=== PATIENT | male | born 1995 | race Caucasian/White ===

== ENCOUNTER 2017-01-01 17:10 | Emergency (ER) | payer OTHER ==
[~2017-01-01] VITALS: Ht 177.8 cm; Wt 98.0 kg
[~2017-01-01 17:10] MED LIST: HYDR-3533 PO; PROM25SU8 PO; ZOFR4TAB3 SL
[2017-01-01 17:12] VITALS: BP 165/93; PULSE 55; RESP 16; TEMP 98.1; O2SAT 99
[2017-01-01] MEDS ORDERED: SODIUM CHLOR 0.9% 1000 ML INJ 1,000 ML IV SCH (17:58)
--- NOTE | 2017-01-01 17:59 | PD ---
HPI . Abdominal pain Chief Complaint: Abdominal Pain Time Seen by Provider: 17:55 Travel History International Travel<30 days: No Contact w/Intl Traveler<30days: No Traveled to known affect area: No History of Present Illness HPI Patient presents with a 2 day history of upper abdominal pain associated with nausea, vomiting and diarrhea. Vomiting is worse than the diarrhea. He has had subjective fevers and chills. Patient reports a history of known gallbladder disease. PFSH Past Surgical History Tonsillectomy: Yes Social History Alcohol Use: No Tobacco Use: Yes (/2 ppd) Substance Use: Yes (marijuana 2 days ago) Allergies-Medications (Allergen,Severity, Reaction): Coded Allergies: Penicillin (Verified Allergy, Severe, 01/01/17) Sulfa (Verified Allergy, Unknown, 01/04/16) Aleve (Verified Adverse Reaction, Severe, Nausea/Vomiting, 01/04/16) Reported Meds & Prescriptions Reported Meds & Active Scripts Active Reported Zofran (Ondansetron HCl) 4 Mg Tab 4 Mg PO Q12HR PRN Review of Systems Except as stated in HPI: all other systems reviewed are Neg General / Constitutional: Positive: Fever, Chills Gastrointestinal: Positive: Nausea, Vomiting, Diarrhea, Abdominal Pain Genitourinary: No: Urgency, Frequency, Dysuria Physical Exam Narrative GENERAL: The patient looks pretty uncomfortable. He is holding an emesis bag with some emesis and it. SKIN: Warm and dry. HEAD: Atraumatic. Normocephalic. EYES: Pupils equal and round. ENT: No nasal bleeding or discharge. Mucous membranes pink and moist. NECK: Trachea midline. CARDIOVASCULAR: Regular rate and rhythm. RESPIRATORY: No accessory muscle use. GASTROINTESTINAL: Abdomen soft. Epigastric tenderness. No guarding or rebound. Nondistended. MUSCULOSKELETAL: No obvious deformities. No edema. NEUROLOGICAL: Awake and alert. No obvious cranial nerve deficits. Motor grossly within normal limits. Normal speech. PSYCHIATRIC: Appropriate mood and affect; insight and judgment normal. Data Data Last Documented VS Vital Signs Date Time Temp Pulse Resp B/P Pulse Ox O2 Delivery O2 Flow Rate FiO2 01/01/17 18:24 55 18 132/86 99 Nasal Cannula 2 01/01/17 17:12 98.1 Orders Complete Blood Count With Diff (01/01/17 17:58) Comprehensive Metabolic Panel (01/01/17 17:58) Lipase (3/4/17 17:58) Iv Access Insert/Monitor (01/01/17 17:58) Ecg Monitoring (01/01/17 17:58) Oximetry (01/01/17 17:58) Hydromorphone Pf Inj (Dilaudid Pf Inj) (01/01/17 18:00) Ondansetron Inj (Zofran Inj) (01/01/17 18:00) Pantoprazole Inj (Protonix Inj) (01/01/17 18:00) Sodium Chlor 0.9% 1000 Ml Inj (Ns 1000 M (01/01/17 17:58) Sodium Chloride 0.9% Flush (Ns Flush) (01/01/17 18:00) Sodium Chlor 0.9% 1000 Ml Inj (Ns 1000 M (01/01/17 19:15) Ketorolac Inj (Toradol Inj) (01/01/17 19:15) Morphine Inj (Morphine Inj) (01/01/17 20:00) Labs Laboratory Tests Test 01/01/17 18:15 White Blood Count 13.8 TH/MM3 Red Blood Count 5.83 MIL/MM3 Hemoglobin 16.8 GM/DL Hematocrit 49.3 % Mean Corpuscular Volume 84.7 FL Mean Corpuscular Hemoglobin 28.9 PG Mean Corpuscular Hemoglobin 34.1 % Concent Red Cell Distribution Width 13.3 % Platelet Count 244 TH/MM3 Mean Platelet Volume 9.2 FL Neutrophils (%) (Auto) 85.8 % Lymphocytes (%) (Auto) 11.5 % Monocytes (%) (Auto) 2.6 % Eosinophils (%) (Auto) 0.0 % Basophils (%) (Auto) 0.1 % Neutrophils # (Auto) 11.8 TH/MM3 Lymphocytes # (Auto) 1.6 TH/MM3 Monocytes # (Auto) 0.4 TH/MM3 Eosinophils # (Auto) 0.0 TH/MM3 Basophils # (Auto) 0.0 TH/MM3 CBC Comment DIFF FINAL Differential Comment Sodium Level 139 MEQ/L Potassium Level 4.1 MEQ/L Chloride Level 104 MEQ/L Carbon Dioxide Level 27.3 MEQ/L Anion Gap 8 MEQ/L Blood Urea Nitrogen 11 MG/DL Creatinine 1.23 MG/DL Estimat Glomerular Filtration 73 ML/MIN Rate Random Glucose 135 MG/DL Calcium Level 9.3 MG/DL Total Bilirubin 1.2 MG/DL Aspartate Amino Transf 19 U/L (AST/SGOT) Alanine Aminotransferase 41 U/L (ALT/SGPT) Alkaline Phosphatase 81 U/L Total Protein 8.7 GM/DL Albumin 4.7 GM/DL Lipase 143 U/L MDM Medical Decision Making Medical Screen Exam Complete: Yes Emergency Medical Condition: Yes Medical Record Reviewed: Yes (patient was seen in July 2016 with similar complaints. He had an ultrasound done that showed sludge in the gallbladder but no gallbladder wall thickening.) Differential Diagnosis Differential diagnosis of abdominal pain includes but is not limited to gastritis, pancreatitis, hepatitis, gastroenteritis, gallbladder disease, constipation, urinary retention, UTI, peptic ulcer disease, diverticulitis or appendicitis Narrative Course Patient presents with a 2 day history of upper abdominal pain associated with nausea, vomiting and diarrhea. He will be given IV fluids, IV pain medication and IV antiemetics. CBC & BMP Diagram 01/01/17 18:15 LFTs are basically normal. Lipase is 143. Patient is now resting comfortably. Diagnosis Primary Impression: Abdominal pain Qualified Code: R10.13 - Epigastric pain Additional Impression: Vomiting Qualified Code: R11.2 - Non-intractable vomiting with nausea, unspecified vomiting type Referrals: Cristofer Gloria MD Patient Instructions: Abdominal Pain (ED), Acute Nausea and Vomiting (DC), General Instructions Scripts Dicyclomine (Bentyl)20 Mg Tab20 Mg PO QID PRN (ABDOMINAL CRAMPING) #10 TAB Ref 0 Prov:Christin Herman MD 01/01/17 Promethazine (Phenergan)25 Mg Tab25 Mg PO Q6H PRN (Nausea/Vomiting) #10 TAB Ref 0 Prov:Christin Herman MD 01/01/17 Disposition: 01 DISCHARGE HOME Condition: Stable Christin Herman MD Jan 01, 2017 17:59
[2017-01-01] MEDS ORDERED: HYDROmorphone HCL PF 2 MG/ML VIAL IVS ONE (18:00)
[2017-01-01] MEDS ORDERED: SODIUM CHLORIDE 0.9% FLUSH 5 ML FLUSH IVF PRN (18:00)
[2017-01-01] MEDS ORDERED: PANTOPRAZOLE SODIUM 40 MG VIAL IVP ONE (18:00)
[2017-01-01] MEDS ORDERED: ONDANSETRON HCL 4 MG/2 ML VIAL IVP ONE (18:00)
[2017-01-01] MEDS ORDERED: ZOFR4TAB PO (18:05)
[2017-01-01 18:14] VITALS: O2SAT 97
[2017-01-01 18:24] VITALS: BP 132/86; PULSE 55; RESP 18; O2SAT 99
[2017-01-01 18:35] LABS: AUTOMATED NEUTROPHIL # 11.8 TH/MM3 (1.8-7.7); BASOPHIL % 0.1 % (0.0-2.0); HEMATOCRIT 49.3 % (39.0-51.0); HEMO FLAGS DIFF FINAL; LYMPH % 11.5 % (9.0-44.0); LYMPHOCYTE # 1.6 TH/MM3 (1.0-4.8); MEAN CELL VOLUME 84.7 FL (80.0-100.0); MEAN CORPUSCULAR HEMOGLOBIN 28.9 PG (27.0-34.0); MEAN CORPUSCULAR HGB CONC 34.1 % (32.0-36.0); MONO % 2.6 % (0.0-8.0); NEUT % 85.8 % (16.0-70.0); PLATELET COUNT 244 TH/MM3 (150-450); RED BLOOD COUNT 5.83 MIL/MM3 (4.50-5.90); RED CELL DISTRIBUTION WIDTH 13.3 % (11.6-17.2); WHITE BLOOD COUNT 13.8 TH/MM3 (4.0-11.0)
[2017-01-01 19:00] LABS: ANION GAP 8 MEQ/L (5-15); AST (GOT) 19 U/L (15-37); BICARBONATE 27.3 MEQ/L (21.0-32.0); BLOOD UREA NITROGEN 11 MG/DL (7-18); CHLORIDE 104 MEQ/L (98-107); GLOMERULAR FILTRATION RATE 73 ML/MIN (>89); POTASSIUM 4.1 MEQ/L (3.5-5.1); SODIUM (NA) 139 MEQ/L (136-145)
[2017-01-01 19:03] LABS: ALKALINE PHOSPHATASE 81 U/L (45-117); ALT (GPT) 41 U/L (12-78); TOTAL BILIRUBIN ADULT 1.2 MG/DL (0.2-1.0)
[2017-01-01] MEDS ORDERED: SODIUM CHLOR 0.9% 1000 ML INJ 1,000 ML IV ONE (19:15)
[2017-01-01] MEDS ORDERED: KETOROLAC TROMETHAMINE 30 MG/ML (IVP) VIAL IV PUSH ONE (19:15)
[2017-01-01] MEDS ORDERED: MORPHINE SULFATE 4 MG/ML INJ IV PUSH ONE (20:00)
[2017-01-01] MEDS ORDERED: PROM25TA5 PO (20:12)
[2017-01-01] MEDS ORDERED: BENT20TA PO (20:12)
== END 2017-01-01 20:41 | disposition home or self-care (01) ==
LOC: NEPA 17:10
DX: R10.10 Upper abdominal pain, unspecified (principal); R11.2 Nausea with vomiting, unspecified; R19.7 Diarrhea, unspecified; F17.210 Nicotine dependence, cigarettes, uncomplicated
CPT/HCPCS: 80053; 83690; 85025; 96361; 96374; 96375; 99284; C9113; J1170; J1885; J2270; J2405; J7030

== ENCOUNTER 2017-03-04 21:30 | Emergency (ER) | payer OTHER ==
[~2017-03-04] VITALS: Ht 175.3 cm; Wt 98.0 kg
[~2017-03-04 21:30] MED LIST changes: +BENT20TA PO; -HYDR-3533 PO; -PROM25SU8 PO; +PROM25TA5 PO; +ZOFR4TAB PO; -ZOFR4TAB3 SL
[2017-03-04 21:32] VITALS: BP 163/96; PULSE 55; RESP 16; TEMP 98.6; O2SAT 98
[2017-03-04 21:45] VITALS: BP 152/85; PULSE 48; RESP 18; TEMP 98.9; O2SAT 98
[2017-03-04] MEDS ORDERED: SODIUM CHLOR 0.9% 1000 ML INJ 1,000 ML IV SCH (21:55)
[2017-03-04] MEDS ORDERED: SODIUM CHLORIDE 0.9% FLUSH 10 ML FLUSH IV FLUSH PRN (22:00)
[2017-03-04] MEDS ORDERED: KETOROLAC TROMETHAMINE 30 MG/ML (IVP) VIAL IVP ONE (22:00)
[2017-03-04] MEDS ORDERED: diphenhydrAMINE HCL 50 MG/ML VIAL IV PUSH ONE (22:00)
[2017-03-04] MEDS ORDERED: PROCHLORPERAZINE INJ 10 MG/2 ML VIAL IV PUSH ONE (22:00)
--- NOTE | 2017-03-04 22:01 | PD ---
HPI Chief Complaint: GI Complaint Time Seen by Provider: 21:46 Travel History International Travel<30 days: No Contact w/Intl Traveler<30days: No Traveled to known affect area: No History of Present Illness HPI To 21-year-old male with episodic abdominal pain for the past year and a half or so. About a month and a half or so and his gallbladder taken out for "gallbladder sludge". He is not really had symptoms since then. Starting today he developed epigastric abdominal pain associated with nausea and vomiting. This similar to his previous episodes of his previous episodes were reportedly worse. He has had regular bowel movements. No fevers or chills. No other complaints. He smokes marijuana daily to every other day or so. No NSAID use. No history of gastritis or peptic ulcer disease. No other abdominal surgeries in the past. No other complaints. History Past Medical History Narrative Medical History of Recurrent abdominal pain Tetanus Vaccination: < 5 Years Social History Alcohol Use: No Tobacco Use: Yes (/ ppd) Allergies-Medications (Allergen,Severity, Reaction): Coded Allergies: Penicillin (Verified Allergy, Severe, 03/04/17) Sulfa (Verified Allergy, Unknown, 03/04/17) Aleve (Verified Adverse Reaction, Severe, Nausea/Vomiting, 03/04/17) Reported Meds & Prescriptions Reported Meds & Active Scripts Active Zofran Odt (Ondansetron Odt) 4 Mg Tab 4 Mg SL Q8HR PRN May substitute non-ODT form. Bentyl (Dicyclomine HCl) 20 Mg Tab 20 Mg PO QID PRN Review of Systems Except as stated in HPI: all other systems reviewed are Neg Physical Exam Narrative GENERAL: Well-appearing 20-year-old man, no acute distress. SKIN: Focused skin assessment warm/dry. NECK: Trachea midline. No JVD. CARDIOVASCULAR: Regular rate and rhythm. No murmur appreciated. RESPIRATORY: No accessory muscle use. Clear to auscultation. Breath sounds equal bilaterally. GASTROINTESTINAL: Abdomen is flat and soft. Well-healed laparoscopic cholecystectomy scars. No rebound or guarding. MUSCULOSKELETAL: No obvious deformities. No edema. NEUROLOGICAL: Awake and alert. No obvious cranial nerve deficits. Motor grossly within normal limits. Normal speech. PSYCHIATRIC: Appropriate mood and affect; insight and judgment normal. Data Data Last Documented VS Vital Signs Date Time Temp Pulse Resp B/P Pulse Ox O2 Delivery O2 Flow Rate FiO2 03/04/17 21:45 18 03/04/17 21:45 98.9 48 152/85 98 Room Air Orders Complete Blood Count With Diff (03/04/17 21:55) Comprehensive Metabolic Panel (03/04/17 21:55) Lipase (03/04/17 21:55) Iv Access Insert/Monitor (03/04/17 21:55) Sodium Chlor 0.9% 1000 Ml Inj (Ns 1000 M (03/04/17 21:55) Sodium Chloride 0.9% Flush (Ns Flush) (03/04/17 22:00) Ketorolac Inj (Toradol Inj) (03/04/17 22:00) Prochlorperazine Inj (Compazine Inj) (03/04/17 22:00) Diphenhydramine Inj (Benadryl Inj) (03/04/17 22:00) Labs Laboratory Tests Test 03/04/17 22:06 White Blood Count 13.0 TH/MM3 Red Blood Count 5.64 MIL/MM3 Hemoglobin 16.9 GM/DL Hematocrit 47.3 % Mean Corpuscular Volume 83.8 FL Mean Corpuscular Hemoglobin 30.0 PG Mean Corpuscular Hemoglobin 35.8 % Concent Red Cell Distribution Width 13.6 % Platelet Count 223 TH/MM3 Mean Platelet Volume 9.3 FL Neutrophils (%) (Auto) 87.1 % Lymphocytes (%) (Auto) 10.6 % Monocytes (%) (Auto) 2.1 % Eosinophils (%) (Auto) 0.0 % Basophils (%) (Auto) 0.2 % Neutrophils # (Auto) 11.3 TH/MM3 Lymphocytes # (Auto) 1.4 TH/MM3 Monocytes # (Auto) 0.3 TH/MM3 Eosinophils # (Auto) 0.0 TH/MM3 Basophils # (Auto) 0.0 TH/MM3 CBC Comment DIFF FINAL Differential Comment Sodium Level 140 MEQ/L Potassium Level 4.1 MEQ/L Chloride Level 103 MEQ/L Carbon Dioxide Level 28.7 MEQ/L Anion Gap 8 MEQ/L Blood Urea Nitrogen 11 MG/DL Creatinine 1.20 MG/DL Estimat Glomerular Filtration 75 ML/MIN Rate Random Glucose 140 MG/DL Calcium Level 9.5 MG/DL Total Bilirubin 1.1 MG/DL Aspartate Amino Transf 26 U/L (AST/SGOT) Alanine Aminotransferase 58 U/L (ALT/SGPT) Alkaline Phosphatase 82 U/L Total Protein 8.3 GM/DL Albumin 4.6 GM/DL Lipase 172 U/L [facility] Medical Decision Making Medical Screen Exam Complete: Yes Emergency Medical Condition: Yes Interpretation(s) LABS: CBC is unremarkable. CMP generally unremarkable. T bili is 1.1 Lipase unremarkable Differential Diagnosis Biliary colic, choledocholithiasis, gastritis, gastroparesis, marijuana hyperemesis syndrome, cyclic vomiting, abdominal migraine, porphyria, other Narrative Course Medical decision making INITIAL calls a 21-year-old male with history of intermittent abdominal pain, treated her gallbladder. Had gallbladder sludge. Status post cholecystectomy. Does not had an episode until now. This is about a month and a half ago. Looks overall well. Reviewed previous imaging included negative CT in December of last year. We'll recheck labs, supportive treatment, avoid opiates. Diagnosis Primary Impression: Abdominal pain Additional Impression: Vomiting Additional Instructions: Take Bentyl as needed for pain. Use Zofran as needed for nausea or vomiting. Drink plenty of fluids to stay well-hydrated. Follow-up with her primary doctor in the next 2-3 days for repeat evaluation. Med/Other Pt SpecificInfo: Prescription(s) given Scripts Ondansetron Odt (Zofran Odt)4 Mg Tab4 Mg SL Q8HR PRN (Nausea/Vomiting) #15 TAB May substitute non-ODT form. Prov:Charles Gibbs MD 03/04/17 Dicyclomine (Bentyl)20 Mg Tab20 Mg PO QID PRN (ABDOMINAL CRAMPING) #20 TAB Prov:Charles Gibbs MD 03/04/17 Disposition: 01 DISCHARGE HOME Condition: Stable Charles Gibbs MD March 04, 2017 22:01
[2017-03-04 22:29] LABS: AUTOMATED NEUTROPHIL # 11.3 TH/MM3 (1.8-7.7); BASOPHIL % 0.2 % (0.0-2.0); HEMATOCRIT 47.3 % (39.0-51.0); HEMO FLAGS DIFF FINAL; LYMPH % 10.6 % (9.0-44.0); LYMPHOCYTE # 1.4 TH/MM3 (1.0-4.8); MEAN CELL VOLUME 83.8 FL (80.0-100.0); MEAN CORPUSCULAR HGB CONC 35.8 % (32.0-36.0); MONO % 2.1 % (0.0-8.0); NEUT % 87.1 % (16.0-70.0); PLATELET COUNT 223 TH/MM3 (150-450); RED BLOOD COUNT 5.64 MIL/MM3 (4.50-5.90); RED CELL DISTRIBUTION WIDTH 13.6 % (11.6-17.2)
[2017-03-04 22:41] LABS: ANION GAP 8 MEQ/L (5-15); AST (GOT) 26 U/L (15-37); BICARBONATE 28.7 MEQ/L (21.0-32.0); BLOOD UREA NITROGEN 11 MG/DL (7-18); CHLORIDE 103 MEQ/L (98-107); GLOMERULAR FILTRATION RATE 75 ML/MIN (>89); POTASSIUM 4.1 MEQ/L (3.5-5.1); SODIUM (NA) 140 MEQ/L (136-145)
[2017-03-04 22:45] LABS: ALKALINE PHOSPHATASE 82 U/L (45-117); ALT (GPT) 58 U/L (12-78); TOTAL BILIRUBIN ADULT 1.1 MG/DL (0.2-1.0)
[2017-03-04] MEDS ORDERED: BENT20TA PO (22:50)
[2017-03-04] MEDS ORDERED: ZOFR4TAB3 SL (22:50)
[2017-03-04 23:22] VITALS: BP 152/67; PULSE 54; RESP 18; O2SAT 100
== END 2017-03-05 00:04 | disposition home or self-care (01) ==
LOC: NEPC 21:30
DX: R10.13 Epigastric pain (principal); R11.2 Nausea with vomiting, unspecified
CPT/HCPCS: 80053; 83690; 85025; 96361; 96374; 96375; 99284; J0780; J1200; J1885; J7030

== ENCOUNTER 2017-03-07 10:55 | Inpatient (IN) | payer OTHER ==
[~2017-03-07] VITALS: Ht 177.8 cm; Wt 102.5 kg
[2017-03-07] VITALS (8 sets, daily range): BP systolic 128–167; BP diastolic 59–96; PULSE 52–68; RESP 16–18; TEMP 98.1–98.8; O2SAT 96–98
[~2017-03-07 10:55] MED LIST changes: +ZOFR4TAB3 SL
--- NOTE | 2017-03-07 11:17 | PD ---
HPI Chief Complaint: GI Complaint Time Seen by Provider: 11:16 Travel History International Travel<30 days: No Contact w/Intl Traveler<30days: No Traveled to known affect area: No History of Present Illness HPI 21-year-old male came to the emergency room with history of epigastric pain and vomiting since yesterday. Patient says today he was at work when he vomited and there was some blood in it. He had his gallbladder taken out a week and a half ago by Dr. Mullins. However upon asking if he called the surgeon prior to coming in here he said no because there was no point since he would not be able to do anything in his office. He says he feels very dehydrated. Vital signs were however stable. [facility] Past Medical History Narrative Medical List of his past medical, surgical, social and family history was reviewed from the nursing note. Past Surgical History Cholecystectomy: Yes Tonsillectomy: Yes Social History Alcohol Use: No Tobacco Use: Yes (2 ppd) Substance Use: Yes (marijuana 2 days ago) Allergies-Medications (Allergen,Severity, Reaction): Coded Allergies: Penicillin (Verified Allergy, Severe, 03/07/17) Sulfa (Verified Allergy, Unknown, 03/07/17) Aleve (Verified Adverse Reaction, Severe, Nausea/Vomiting, 03/07/17) Comments List of his allergies reviewed from the nursing note. Reported Meds & Prescriptions Reported Meds & Active Scripts Active Zofran Odt (Ondansetron Odt) 4 Mg Tab 4 Mg SL Q8HR PRN May substitute non-ODT form. Bentyl (Dicyclomine HCl) 20 Mg Tab 20 Mg PO QID PRN Narrative Medication List of his home medications reviewed from the nursing note. Review of Systems Except as stated in HPI: all other systems reviewed are Neg Physical Exam Narrative GENERAL: Awake, alert, obese, moderate distress SKIN: Focused skin assessment warm/dry. HEAD: Atraumatic. Normocephalic. EYES: Pupils equal and round. No scleral icterus. No injection or drainage. ENT: No nasal bleeding or discharge. Dry mucous members NECK: Trachea midline. No JVD. CARDIOVASCULAR: Regular rate and rhythm. No murmur appreciated. RESPIRATORY: No accessory muscle use. Clear to auscultation. Breath sounds equal bilaterally. GASTROINTESTINAL: Abdomen soft, non-tender, nondistended. Hepatic and splenic margins not palpable. MUSCULOSKELETAL: No obvious deformities. No clubbing. No cyanosis. No edema. NEUROLOGICAL: Awake and alert. No obvious cranial nerve deficits. Motor grossly within normal limits. Normal speech. PSYCHIATRIC: Appropriate mood and affect; insight and judgment normal. Data Data Last Documented VS Vital Signs Date Time Temp Pulse Resp B/P Pulse Ox O2 Delivery O2 Flow Rate FiO2 03/07/17 16:20 98.3 60 16 155/91 98 Room Air Orders Complete Blood Count With Diff (03/07/17 11:23) Comprehensive Metabolic Panel (03/07/17 11:23) Urinalysis - C+S If Indicated (03/07/17 11:23) Ct Abd/Pel W/O Iv Contrast (03/07/17 11:23) Iv Access Insert/Monitor (03/07/17 11:23) Ecg Monitoring (03/07/17 11:23) Oximetry (03/07/17 11:23) Ondansetron Inj (Zofran Inj) (03/07/17 11:30) Pantoprazole Inj (Protonix Inj) (03/07/17 11:30) Sodium Chlor 0.9% 1000 Ml Inj (Ns 1000 M (03/07/17 11:23) Sodium Chloride 0.9% Flush (Ns Flush) (03/07/17 11:30) Ketorolac Inj (Toradol Inj) (03/07/17 11:30) Sodium Chlor 0.9% 1000 Ml Inj (Ns 1000 M (03/07/17 12:00) Morphine Inj (Morphine Inj) (03/07/17 12:45) Biliary Quant (W/O Cck) (03/07/17 ) Place In Observation (03/07/17 ) Code Status (03/07/17 16:16) Vital Signs (Adult) Q4H (03/07/17 16:16) Activity Oob With Assistance (03/07/17 16:16) Diet Npo (03/07/17 Dinner) Sodium Chloride 0.9% Flush (Ns Flush) (03/07/17 16:30) Sodium Chloride 0.9% Flush (Ns Flush) (03/07/17 21:00) Acetaminophen (Tylenol) (03/07/17 16:30) Ondansetron Inj (Zofran Inj) (03/07/17 16:30) Bisacodyl Supp (Dulcolax Supp) (03/07/17 16:30) Comprehensive Metabolic Panel (03/08/17 06:00) Complete Blood Count With Diff (03/08/17 06:00) Scd Bilateral/Knee High DAVID.BID (03/07/17 16:16) Naloxone Inj (Narcan Inj) (03/07/17 16:30) Ns + Kcl 20 Meq Inj (Ns + Kcl 20 Meq Inj (03/07/17 17:00) Hydromorphone Pf Inj (Dilaudid Pf Inj) (03/07/17 16:30) Consult General Surgery (03/07/17 ) Admit Order (Ed Use Only) (03/07/17 16:24) Labs Laboratory Tests Test 03/07/17 03/07/17 11:30 12:25 White Blood Count 14.9 TH/MM3 Red Blood Count 6.07 MIL/MM3 Hemoglobin 17.4 GM/DL Hematocrit 51.6 % Mean Corpuscular Volume 85.0 FL Mean Corpuscular Hemoglobin 28.6 PG Mean Corpuscular Hemoglobin 33.7 % Concent Red Cell Distribution Width 13.4 % Platelet Count 223 TH/MM3 Mean Platelet Volume 9.3 FL Neutrophils (%) (Auto) 63.5 % Lymphocytes (%) (Auto) 26.3 % Monocytes (%) (Auto) 9.8 % Eosinophils (%) (Auto) 0.2 % Basophils (%) (Auto) 0.2 % Neutrophils # (Auto) 9.5 TH/MM3 Lymphocytes # (Auto) 3.9 TH/MM3 Monocytes # (Auto) 1.5 TH/MM3 Eosinophils # (Auto) 0.0 TH/MM3 Basophils # (Auto) 0.0 TH/MM3 CBC Comment DIFF FINAL Differential Comment Sodium Level 137 MEQ/L Potassium Level 3.4 MEQ/L Chloride Level 99 MEQ/L Carbon Dioxide Level 29.8 MEQ/L Anion Gap 8 MEQ/L Blood Urea Nitrogen 12 MG/DL Creatinine 1.12 MG/DL Estimat Glomerular Filtration 81 ML/MIN Rate Random Glucose 115 MG/DL Calcium Level 9.6 MG/DL Total Bilirubin 2.6 MG/DL Aspartate Amino Transf 214 U/L (AST/SGOT) Alanine Aminotransferase 266 U/L (ALT/SGPT) Alkaline Phosphatase 89 U/L Total Protein 8.1 GM/DL Albumin 4.5 GM/DL Urine Color YELLOW Urine Turbidity HAZY Urine pH 6.5 Urine Specific [place] 1.028 Urine Protein 30 mg/dL Urine Glucose (UA) NEG mg/dL Urine Ketones 10 mg/dL Urine Occult Blood NEG Urine Nitrite NEG Urine Bilirubin NEG Urine Urobilinogen 8.0 MG/DL Urine Leukocyte Esterase NEG Urine RBC 1 /hpf Urine WBC 1 /hpf Urine Mucus FEW /lpf Microscopic Urinalysis Comment CULT NOT INDICATED MDM Medical Decision Making Medical Screen Exam Complete: Yes Emergency Medical Condition: Yes Medical Record Reviewed: Yes Differential Diagnosis Postop pain, gastritis, abdominal pain NOS, small bowel obstruction Narrative Course 11:56 AM awaiting for the blood test results and CAT scan to be done and resulted. CBC is back and shows some leukocytosis. He's been medicated for pain and nausea. Have also given him IV Protonix. Patient was also given 1 L of IV fluid bolus. 1:05 PM blood test results came back and his LFTs are significantly elevated. I discussed the case with Dr. Zapata who was covering for Dr. Mullins since he' s out of town. He wants a HIDA scan done before he decides what further needs to be done. The skin has been ordered. Awaiting for her to be done and resulted. Patient was still complaining of pain and he was medicated with morphine. 4:06 PM nuclear medicine just called to say that the test will need to be repeated at 6:30. At this point I will go ahead and admit this patient at least for observation. Awaiting for the residents to call back. Dr. Zapata has not come to see the patient yet. I've explained this to the patient and the reason for admission. 4:[address] [facility]ren[facility] who [facility] accepted the patient. Procedures EKG Prior to Arrival: No Physician Communication Physician Communication Dr. Ev Webber Diagnosis Primary Impression: Abdominal pain Qualified Code: R10.13 - Epigastric pain Additional Impressions: Vomiting Qualified Code: R11.2 - Intractable vomiting with nausea, unspecified vomiting type Elevated LFTs Status post cholecystectomy Admitting Information Admitting Physician Requests: Admit Esme Ruiz MD March 07, 2017 11:17
[2017-03-07] MEDS ORDERED: SODIUM CHLOR 0.9% 1000 ML INJ 1,000 ML IV SCH (11:23)
[2017-03-07] MEDS ORDERED: PANTOPRAZOLE SODIUM 40 MG VIAL IVP ONE (11:30)
[2017-03-07] MEDS ORDERED: SODIUM CHLORIDE 0.9% FLUSH 10 ML FLUSH IV FLUSH PRN (11:30)
[2017-03-07] MEDS ORDERED: ONDANSETRON HCL 4 MG/2 ML VIAL IVP ONE (11:30)
[2017-03-07] MEDS ORDERED: KETOROLAC TROMETHAMINE 30 MG/ML (IVP) VIAL IV PUSH ONE (11:30)
[2017-03-07 11:48] LABS: AUTOMATED NEUTROPHIL # 9.5 TH/MM3 (1.8-7.7); BASOPHIL % 0.2 % (0.0-2.0); EOSINOPHIL % 0.2 % (0.0-4.0); HEMATOCRIT 51.6 % (39.0-51.0); HEMO FLAGS DIFF FINAL; LYMPH % 26.3 % (9.0-44.0); LYMPHOCYTE # 3.9 TH/MM3 (1.0-4.8); MEAN CORPUSCULAR HEMOGLOBIN 28.6 PG (27.0-34.0); MEAN CORPUSCULAR HGB CONC 33.7 % (32.0-36.0); MONO % 9.8 % (0.0-8.0); NEUT % 63.5 % (16.0-70.0); PLATELET COUNT 223 TH/MM3 (150-450); RED BLOOD COUNT 6.07 MIL/MM3 (4.50-5.90); RED CELL DISTRIBUTION WIDTH 13.4 % (11.6-17.2); WHITE BLOOD COUNT 14.9 TH/MM3 (4.0-11.0)
[2017-03-07] MEDS ORDERED: SODIUM CHLOR 0.9% 1000 ML INJ 1,000 ML IV ONE (12:00)
--- NOTE | 2017-03-07 12:15 | RADRPT ---
EXAM DATE/TIME: 03/07/2017 11:54 [facility] COMPARISON: No previous studies available for comparison. INDICATIONS : Mid upper quadrant pain starting after gallbladder,vomiting blood. ORAL CONTRAST: No oral contrast ingested. RADIATION DOSE: 9.96 CTDIvol (mGy) MEDICAL HISTORY : None SURGICAL HISTORY : Cholecystectomy. ENCOUNTER: Initial ACUITY: 1 month PAIN SCALE: 7/10 LOCATION: abdomen TECHNIQUE: Volumetric scanning of the abdomen and pelvis was performed. Using automated exposure control and ad justment of the mA and/or kV according to patient size, radiation dose was kept as low as reasonably achievable to obtain optimal diagnostic quality images. FINDINGS: The lung base is are clear. There is no pericardial effusion. The gallbladder is surgically absent. The liver is free of focal defects. The spleen, pancreas, and adrenal glands are unremarkable The right and left kidneys appear normal There is no free fluid or free air The pelvic contents are unremarkable. Review of bone windows reveals only mild degenerative changes in the lower lumbar spine. CONCLUSION: 1. Negative for an acute process. I do not see etiology for patient's abdominal pain. Duy Harman MD FACR on March 07, 2017 at 12:11 Board Certified Radiologist. This report was verified electronically.
[2017-03-07 12:23] LABS: ALKALINE PHOSPHATASE 89 U/L (45-117); ALT (GPT) 266 U/L (12-78); ANION GAP 8 MEQ/L (5-15); AST (GOT) 214 U/L (15-37); BICARBONATE 29.8 MEQ/L (21.0-32.0); BLOOD UREA NITROGEN 12 MG/DL (7-18); CHLORIDE 99 MEQ/L (98-107); GLOMERULAR FILTRATION RATE 81 ML/MIN (>89); POTASSIUM 3.4 MEQ/L (3.5-5.1); SODIUM (NA) 137 MEQ/L (136-145); TOTAL BILIRUBIN ADULT 2.6 MG/DL (0.2-1.0)
[2017-03-07] MEDS ORDERED: MORPHINE SULFATE 8 MG/ML INJ IV PUSH ONE (12:45)
[2017-03-07 12:50] LABS: BLOOD, URINE NEG (NEG); COMMENT (UR) CULT NOT INDICATED; CULTURE IF INDICATED CULT NOT INDICATED; GLUCOSE,URINE NEG (NEG); KETONE, URINE 10 mg/dL (NEG); MUCUS URINE FEW /lpf (OCC); NITRITE,URINE NEG (NEG); PH, URINE 6.5 (5.0-8.5); URINE COLOR YELLOW (YELLW/STRAW)
[2017-03-07] MEDS ORDERED: ONDANSETRON HCL 4 MG/2 ML VIAL IVP PRN (16:30)
[2017-03-07] MEDS ORDERED: BISACODYL 10 MG SUPP RECTAL PRN (16:30)
[2017-03-07] MEDS ORDERED: NALOXONE HCL 0.4 MG/ML AMP IV PRN (16:30)
[2017-03-07] MEDS ORDERED: ACETAMINOPHEN 325 MG TAB PO PRN (16:30)
--- NOTE | 2017-03-07 16:36 | RADRPT ---
EXAM DATE/TIME: 03/07/2017 13:55 This report includes an Addendum and supersedes previous reports for this exam. [facility] COMPARISON: No previous studies available for comparison. INDICATIONS : Epigastric pain with vomiting. Cholecystectomy 1 month ago. DOSE: 4.4 mCi Tc99m Mebrofenin IV MEDICAL HISTORY : None SURGICAL HISTORY : Cholecystectomy. Tonsillectomy. ENCOUNTER: Initial ACUITY: 2 days PAIN SCALE: 3/10 LOCATION: Bilateral upper quadrant TECHNIQUE: Following the intravenous administration of radiotracer, dynamic sequential images were performed wit h continuous acquisition. FINDINGS: There is non-visualization of the biliary system at 2 hours. Considerations would include high-grade obstruction and acute hepatitis. Delayed images are pending. CONCLUSION: No biliary activity at 2 hours, delayed images are pending. Duy Harman MD FACR on March 07, 2017 at 16:32 Board Certified Radiologist. This report was verified electronically. ADDENDUM: There is no biliary duct or intestinal activity at 4 hours characteristic of high grade common bile d uct obstruction. Luis Enrique Zheng MD on March 07, 2017 at 17:59 Board Certified Radiologist. This report was verified electronically.
[2017-03-07] MEDS: HYDROmorphone HCL PF 1 MG/ML VIAL IV PUSH PRN ×2 (16:52→23:08)
--- NOTE | 2017-03-07 17:34 | HHI.HP ---
HPI Service [facility] Hospitalists Primary Care Physician Alexandru Soto M.D. Admission Diagnosis abdominal pain, elevated LFTs, intractable vomiting Chief Complaint: abd pain n/v Travel History International Travel<30 Days: No Contact w/Intl Traveler <30 Da: No Traveled to Known Affected Are: No History of Present Illness Patient is a pleasant 21-year-old male who underwent laparoscopic cholecystectomy on 01/13/[address] Cooper Mullins. Patient presented to the ER with complaint of recurrent abdominal pain associated with nausea or vomiting for 3-4 days prior to this admission. Patient reports that on 03/06/17, day prior to admission, he had some hematemesis. Patient also c/o dizziness for the last 2-3 days prior to admission. Workup in the ER was suggestive of mild dehydration. Patient started on intravenous fluids. Patient had CT of abdomen and pelvis (03/07/17) which showed no acute findings. Patient underwent hiatus scan which showed no biliary duct or intestinal activity at 4 hours. Patient admitted to [facility] for further evaluation and treatment Review of Systems Constitutional: DENIES: Diaphoretic episodes, Fatigue, Fever, Weight gain, Weight loss, Chills, Dizziness, Change in appetite, Night Sweats Endocrine: DENIES: Heat/cold intolerance, Polydipsia, Polyuria, Polyphagia Eyes: DENIES: Blurred vision, Diplopia, Eye inflammation, Eye pain, Vision loss , Photosensitivity, Double Vision Ears, nose, mouth, throat: DENIES: Tinnitus, Hearing loss, Vertigo, Nasal discharge, Oral lesions, Throat pain, Hoarseness, Ear Pain, Running Nose, Epistaxis, Sinus Pain, Toothache, Odynophagia Respiratory: DENIES: Apneas, Cough, Snoring, Wheezing, Hemoptysis, Sputum production, Shortness of breath Cardiovascular: DENIES: Chest pain, Palpitations, Syncope, Dyspnea on Exertion , PND, Lower Extremity Edema, Orthopnea, Claudication Gastrointestinal: COMPLAINS OF: Abdominal pain, Nausea, Vomiting, See HPI, DENIES: Black stools, Bloody stools, BRB per rectum, Constipation, Diarrhea, GERD, Reflux, Difficulty Swallowing, Anorexia Genitourinary: DENIES: Urinary frequency, Urinary incontinence, Urgency, Hematuria, Dysuria, Nocturia Musculoskeletal: DENIES: Joint pain, Muscle aches, Stiffness, Joint Swelling, Back pain, Neck pain Integumentary: DENIES: Abnormal pigmentation, Nail changes, Pruritus, Rash Hematologic/lymphatic: DENIES: Bruising, Lymphadenopathy Immunologic/allergic: DENIES: Eczema, Urticaria Neurologic: DENIES: Abnormal gait, Headache, Localized weakness, Paresthesias, Seizures, Speech Problems, Tremor, Poor Balance Psychiatric: DENIES: Anxiety, Confusion, Mood changes, Depression, Hallucinations, Agitation, Suicidal Ideation, Homicidal Ideation, Delusions, History of Bipolar, History of Schizophrenia Past Family Social History Past Medical History - see above Past Surgical History 1) tonsillectomy and adenoidectomy in childhood 2) laparoscopic cholecystectomy 01/13/17 Reported Medications Reported Meds & Active Scripts Active Zofran Odt (Ondansetron Odt) 4 Mg Tab 4 Mg SL Q8HR PRN May substitute non-ODT form. Bentyl (Dicyclomine HCl) 20 Mg Tab 20 Mg PO QID PRN Allergies: Coded Allergies: Penicillin (Verified Allergy, Severe, 03/07/17) Sulfa (Verified Allergy, Unknown, 03/07/17) Aleve (Verified Adverse Reaction, Severe, Nausea/Vomiting, 03/07/17) Family History - mother living, age 54 y/o, HTN, hyperlipidemia, DM - father living, age 61 y/o Social History - Current smoker, 1/2 ppd x 5 years - Denies alcohol use - Uses marijuana daily Physical Exam Vital Signs Vital Signs Date Time Temp Pulse Resp B/P Pulse Ox O2 Delivery O2 Flow Rate FiO2 03/07/17 17:27 98.3 56 16 159/74 99 03/07/17 16:52 56 16 159/79 98 Room Air 03/07/17 16:20 98.3 60 16 155/91 98 Room Air 03/07/17 13:00 54 18 167/78 98 Room Air 03/07/17 13:00 16 03/07/17 13:00 16 03/07/17 10:57 98.3 61 17 151/96 96 Physical Exam GENERAL: This is a well-nourished, well-developed patient, in no apparent distress. SKIN: No rashes, ecchymoses or lesions. Cool and dry. HEAD: Atraumatic. Normocephalic. No temporal or scalp tenderness. EYES: Pupils equal round and reactive. Extraocular motions intact. No scleral icterus. No injection or drainage. ENT: Nose without bleeding, purulent drainage or septal hematoma. Throat without erythema, tonsillar hypertrophy or exudate. Uvula midline. Airway patent. NECK: Trachea midline. No JVD or lymphadenopathy. Supple, nontender, no meningeal signs. CARDIOVASCULAR: Regular rate and rhythm without murmurs, gallops, or rubs. RESPIRATORY: Clear to auscultation. Breath sounds equal bilaterally. No wheezes , rales, or rhonchi. GASTROINTESTINAL: Abdomen soft, non-tender, nondistended. No hepato-splenomegaly , or palpable masses. No guarding. MUSCULOSKELETAL: Extremities without clubbing, cyanosis, or edema. No joint tenderness, effusion, or edema noted. No calf tenderness. Negative Homans sign bilaterally. NEUROLOGICAL: Awake and alert. Cranial nerves II through XII intact. Motor and sensory grossly within normal limits. Five out of 5 muscle strength in all muscle groups. Normal speech. Laboratory Laboratory Tests Test 03/07/17 03/07/17 11:30 12:25 White Blood Count 14.9 Red Blood Count 6.07 Hemoglobin 17.4 Hematocrit 51.6 Mean Corpuscular Volume 85.0 Mean Corpuscular Hemoglobin 28.6 Mean Corpuscular Hemoglobin 33.7 Concent Red Cell Distribution Width 13.4 Platelet Count 223 Mean Platelet Volume 9.3 Neutrophils (%) (Auto) 63.5 Lymphocytes (%) (Auto) 26.3 Monocytes (%) (Auto) 9.8 Eosinophils (%) (Auto) 0.2 Basophils (%) (Auto) 0.2 Neutrophils # (Auto) 9.5 Lymphocytes # (Auto) 3.9 Monocytes # (Auto) 1.5 Eosinophils # (Auto) 0.0 Basophils # (Auto) 0.0 CBC Comment DIFF FINAL Differential Comment Sodium Level 137 Potassium Level 3.4 Chloride Level 99 Carbon Dioxide Level 29.8 Anion Gap 8 Blood Urea Nitrogen 12 Creatinine 1.12 Estimat Glomerular Filtration 81 Rate Random Glucose 115 Calcium Level 9.6 Total Bilirubin 2.6 Aspartate Amino Transf 214 (AST/SGOT) Alanine Aminotransferase 266 (ALT/SGPT) Alkaline Phosphatase 89 Total Protein 8.1 Albumin 4.5 Urine Color YELLOW Urine Turbidity HAZY Urine pH 6.5 Urine Specific [place] 1.028 Urine Protein 30 Urine Glucose (UA) NEG Urine Ketones 10 Urine Occult Blood NEG Urine Nitrite NEG Urine Bilirubin NEG Urine Urobilinogen 8.0 Urine Leukocyte Esterase NEG Urine RBC 1 Urine WBC 1 Urine Mucus FEW Microscopic Urinalysis Comment CULT NOT INDICATED Result Diagram: 03/07/17 1130 03/07/17 1130 Imaging Last Impressions Abdomen/Pelvis CT 03/07/17 1123 Signed Impressions: Service Date/Time: Tuesday, March 07, 2017 11:54 - CONCLUSION: 1. Negative for an acute process. I do not see etiology for patient's abdominal pain. Duy Harman MD FACR Hepatobiliary Scan Nuclear Medicine 03/07/17 0000 Signed Impressions: Service Date/Time: Tuesday, March 07, 2017 13:55 - CONCLUSION: No biliary activity at 2 hours, delayed images are pending. Duy Harman MD FACRADDENDUM : There is no biliary duct or intestinal activity at 4 hours characteristic of high grade common bile duct obstruction. Luis Enrique Zheng MD Septic Shock Reassessment Heart: Regular rate and rhythm Lungs: Clear Skin: Warm Peripheral Pulses: Bounding Right Radial Bounding Left Radial Bounding Right Popliteal Bounding Left Popliteal Bounding Right Dorsalis Pedis Bounding Left Dorsalis Pedis Bounding Right Posterior Tibial Bounding Left Posterior Tibial Capillary Refill: Brisk Assessment and Plan Problem List: (1) Abdominal pain Status: Acute Plan: - s/p cholecystectomy 01/13/[address] Cooper Mullins - returns with recurrent abd pain, n/v, and reported episode of hematemesis - CT abd/pelvis (03/07/17) --> NO acute findings - HIDA (03/07/17) --> no biliary duct or intestinal activity at 4 hours - IVFs - NPO - dilaudid prn pain - await surgical consult - Case d/w Dr. Ge (03/07/17) (2) Elevated LFTs Status: Acute Plan: - see above Problem Qualifiers (1) Abdominal pain: Qualified Code: R10.13 - Epigastric pain Keanu Carreno DO March 07, 2017 17:34
[2017-03-07] MEDS: NS + KCL 20 MEQ INJ 1,000 ML IV SCH (18:05)
[2017-03-07] MEDS: SODIUM CHLORIDE 0.9% FLUSH 10 ML FLUSH IV FLUSH SCH (20:37)
[2017-03-07] MEDS: SODIUM CHLORIDE 0.9% FLUSH 10 ML FLUSH IV FLUSH PRN (23:07)
[2017-03-08] MEDS: NS + KCL 20 MEQ INJ 1,000 ML IV SCH ×4 (02:03→23:07)
[2017-03-08 04:17] VITALS: BP 120/70; PULSE 60; RESP 18; TEMP 98.7; O2SAT 98
[2017-03-08 05:17] LABS: AUTOMATED NEUTROPHIL # 6.5 TH/MM3 (1.8-7.7); BASOPHIL % 0.4 % (0.0-2.0); EOSINOPHIL # 0.1 TH/MM3 (0-0.4); EOSINOPHIL % 0.8 % (0.0-4.0); HEMATOCRIT 45.8 % (39.0-51.0); HEMO FLAGS DIFF FINAL; LYMPH % 30.7 % (9.0-44.0); LYMPHOCYTE # 3.4 TH/MM3 (1.0-4.8); MEAN CELL VOLUME 85.5 FL (80.0-100.0); MEAN CORPUSCULAR HEMOGLOBIN 28.6 PG (27.0-34.0); MEAN CORPUSCULAR HGB CONC 33.5 % (32.0-36.0); MONO % 10.1 % (0.0-8.0); PLATELET COUNT 178 TH/MM3 (150-450); RED BLOOD COUNT 5.35 MIL/MM3 (4.50-5.90); RED CELL DISTRIBUTION WIDTH 13.4 % (11.6-17.2); WHITE BLOOD COUNT 11.2 TH/MM3 (4.0-11.0)
[2017-03-08 05:38] LABS: ALKALINE PHOSPHATASE 93 U/L (45-117); ALT (GPT) 482 U/L (12-78); ANION GAP 8 MEQ/L (5-15); AST (GOT) 249 U/L (15-37); BICARBONATE 27.2 MEQ/L (21.0-32.0); BLOOD UREA NITROGEN 10 MG/DL (7-18); CHLORIDE 105 MEQ/L (98-107); GLOMERULAR FILTRATION RATE 99 ML/MIN (>89); POTASSIUM 3.5 MEQ/L (3.5-5.1); SODIUM (NA) 140 MEQ/L (136-145); TOTAL BILIRUBIN ADULT 4.7 MG/DL (0.2-1.0)
[2017-03-08] MEDS: SODIUM CHLORIDE 0.9% FLUSH 10 ML FLUSH IV FLUSH PRN ×3 (05:47→23:07)
[2017-03-08] MEDS: HYDROmorphone HCL PF 1 MG/ML VIAL IV PUSH PRN ×3 (05:48→19:36)
[2017-03-08 07:56] VITALS: BP 124/62; PULSE 55; RESP 18; TEMP 98.1; O2SAT 98
[2017-03-08] MEDS: SODIUM CHLORIDE 0.9% FLUSH 10 ML FLUSH IV FLUSH SCH ×2 (09:00→21:00)
--- NOTE | 2017-03-08 10:04 | HHI.PR ---
Subjective Remarks Pt c/o RUQ overnight which resolved with Dilaudid. Objective Vitals Vital Signs Date Time Temp Pulse Resp B/P Pulse Ox O2 Delivery O2 Flow Rate FiO2 03/08/17 07:56 98.1 55 18 124/62 98 03/08/17 04:17 98.7 60 18 120/70 98 03/07/17 23:18 98.1 64 18 128/59 97 03/07/17 19:35 98.8 68 18 132/72 97 03/07/17 18:13 98.4 52 18 130/73 96 03/07/17 17:27 98.3 56 16 159/74 99 03/07/17 16:52 56 16 159/79 98 Room Air 03/07/17 16:20 98.3 60 16 155/91 98 Room Air 03/07/17 13:00 54 18 167/78 98 Room Air 03/07/17 13:00 16 03/07/17 13:00 16 03/07/17 10:57 98.3 61 17 151/96 96 Result Diagram: 03/08/17 0435 03/08/17 0435 Imaging Last Impressions Abdomen/Pelvis CT 03/07/17 1123 Signed Impressions: Service Date/Time: Tuesday, March 07, 2017 11:54 - CONCLUSION: 1. Negative for an acute process. I do not see etiology for patient's abdominal pain. Duy Harman MD FACR Hepatobiliary Scan Nuclear Medicine 03/07/17 0000 Signed Impressions: Service Date/Time: Tuesday, March 07, 2017 13:55 - CONCLUSION: No biliary activity at 2 hours, delayed images are pending. Duy Harman MD FACRADDENDUM : There is no biliary duct or intestinal activity at 4 hours characteristic of high grade common bile duct obstruction. Luis Enrique Zheng MD Objective Remarks GENERAL: This is a well-nourished, well-developed patient, in no apparent distress. CARDIOVASCULAR: Regular rate and rhythm without murmurs, gallops, or rubs. RESPIRATORY: Clear to auscultation. Breath sounds equal bilaterally. No wheezes , rales, or rhonchi. GASTROINTESTINAL: Abdomen soft, non-tender, nondistended. Normal active bowel sounds MUSCULOSKELETAL: Extremities without clubbing, cyanosis, or edema. NEURO: Alert & Oriented x4 to person, place, time, situation. Moves all ext x4 A/P Problem List: (1) Abdominal pain Status: Acute Plan: - s/p cholecystectomy 01/13/[address] Cooper Mullins - returns with recurrent abd pain, n/v, and reported episode of hematemesis - CT abd/pelvis (03/07/17) --> NO acute findings - HIDA (03/07/17) --> no biliary duct or intestinal activity at 4 hours - IVFs - NPO - dilaudid prn pain - await surgical consult - Case d/w Dr. Ge (03/08/17) - LFT (03/08/17) --> increasing - obtain MRCP, r/o choledocholithiasis - request GI consult (2) Elevated LFTs Status: Acute Plan: - obtain hepatitis panel - repeat LFTs in AM - see above Problem Qualifiers (1) Abdominal pain: Qualified Code: R10.13 - Epigastric pain Keanu Carreno DO March 08, 2017 10:03
[2017-03-08 11:21] VITALS: BP 122/64; PULSE 51; RESP 22; TEMP 98; O2SAT 99
--- NOTE | 2017-03-08 11:58 | PD.CONS ---
HPI History of Present Illness This is a 21 year old male who had a laparoscopic cholecystectomy with Dr. Mullins on January [address] [facility] (he reports that he had cholecystitis with sludge in his gallbladder, but no stones). He reports that afterwards, he was feeling great and did not having any issues. Tuesday, he had a blackened a Red fish sandwich with chips and queso from [employer]. Soon after finishing his meal, he vomited this back up and continued to have nausea and vomiting throughout the day with more bilious material. He also had associated abdominal pain described as a pressure in his epigastric area that radiates to his back at times. This has pretty much been constant, although with the pain medicine, it is more intermittent. He believes he has had some fever and chills since his symptoms started. He has not had a bowel movement since . He did try ranitidine, TUMS, hydrocodone and dicyclimine that he had left over from his surgery, but none of these seemed to help. His significant other ate the same food and did not have any symptoms. He reports that his symptoms have progressively been getting worse and therefore he came to the ER for further evaluation. He was noted to have elevated LFTs. He denies any history of liver problems. He does not drink ETOH regularly- last had one beer a few weeks ago. No herbal supplements. No liver disease in the family. ( Erma Swanson) PFSH Past Medical History Hx cholecystitis/sludge Past Surgical History Laparoscopic cholecystectomy Tonsillectomy Tubes in ears (Erma Swanson) Coded Allergies: Penicillin (Verified Allergy, Severe, 03/07/17) Sulfa (Verified Allergy, Unknown, 03/07/17) Aleve (Verified Adverse Reaction, Severe, Nausea/Vomiting, 03/07/17) Medications Allergies Coded Allergies Type Severity Reaction Last Updated Verified Penicillin Allergy Severe 03/07/17 Yes Sulfa Allergy Unknown 03/07/17 Yes Aleve Adverse Reaction Severe Nausea/Vomiting 03/07/17 Yes Active Scripts Medications Dose Route/Sig Days Date Category Dose Instructions Zofran Odt (Ondansetron Odt) 4 Mg Tab 4 Mg SL Q8HR PRN 03/04/17 Rx May substitute non-ODT form. Bentyl (Dicyclomine HCl) 20 Mg Tab 20 Mg PO QID PRN 03/04/17 Rx Tums, hydrocodone, ranitidine recently for pain Family History Mother, maternal grandfather with htn, high cholesterol, dm Father no known medical problems. Social History 1/2 PPD ~4-5 years Occasional ETOH Occasional MJ (Erma Swanson Aleisha OROPEZA) Review of Systems Constitutional: COMPLAINS OF: Fever, Weight loss, Chills Respiratory: DENIES: Cough, Shortness of breath Cardiovascular: DENIES: Chest pain Gastrointestinal: COMPLAINS OF: Abdominal pain, Nausea, Vomiting, Swelling of Abdomen, DENIES: Black stools, Bloody stools, Constipation, Diarrhea, Heartburn Musculoskeletal: COMPLAINS OF: Back pain, DENIES: Muscle aches Integumentary: DENIES: Rash Neurologic: DENIES: Headache Psychiatric: DENIES: Confusion (SwansonErma) GI Exam Vitals I&O Vital Signs Date Time Temp Pulse Resp B/P Pulse Ox O2 Delivery O2 Flow Rate FiO2 03/08/17 11:21 98.0 51 22 122/64 99 03/08/17 07:56 98.1 55 18 124/62 98 03/08/17 04:17 98.7 60 18 120/70 98 03/07/17 23:18 98.1 64 18 128/59 97 03/07/17 19:35 98.8 68 18 132/72 97 03/07/17 18:13 98.4 52 18 130/73 96 03/07/17 17:27 98.3 56 16 159/74 99 03/07/17 16:52 56 16 159/79 98 Room Air 03/07/17 16:20 98.3 60 16 155/91 98 Room Air 03/07/17 13:00 54 18 167/78 98 Room Air 03/07/17 13:00 16 03/07/17 13:00 16 Imaging Last Impressions Abdomen/Pelvis CT 03/07/17 1123 Signed Impressions: Service Date/Time: Tuesday, March 07, 2017 11:54 - CONCLUSION: 1. Negative for an acute process. I do not see etiology for patient's abdominal pain. Duy Harman MD FACR Hepatobiliary Scan Nuclear Medicine 03/07/17 0000 Signed Impressions: Service Date/Time: Tuesday, March 07, 2017 13:55 - CONCLUSION: No biliary activity at 2 hours, delayed images are pending. Duy Harman MD FACRADDENDUM : There is no biliary duct or intestinal activity at 4 hours characteristic of high grade common bile duct obstruction. Luis Enrique Zheng MD Laboratory Test 03/07/17 03/08/17 12:25 04:35 Urine Color YELLOW Urine Turbidity HAZY Urine pH 6.5 Urine Specific [place] 1.028 Urine Protein 30 mg/dL Urine Glucose (UA) NEG mg/dL Urine Ketones 10 mg/dL Urine Occult Blood NEG Urine Nitrite NEG Urine Bilirubin NEG Urine Urobilinogen 8.0 MG/DL Urine Leukocyte Esterase NEG Urine RBC 1 /hpf Urine WBC 1 /hpf Urine Mucus FEW /lpf Microscopic Urinalysis Comment CULT NOT INDICATED White Blood Count 11.2 TH/MM3 Red Blood Count 5.35 MIL/MM3 Hemoglobin 15.3 GM/DL Hematocrit 45.8 % Mean Corpuscular Volume 85.5 FL Mean Corpuscular Hemoglobin 28.6 PG Mean Corpuscular Hemoglobin 33.5 % Concent Red Cell Distribution Width 13.4 % Platelet Count 178 TH/MM3 Mean Platelet Volume 9.4 FL Neutrophils (%) (Auto) 58.0 % Lymphocytes (%) (Auto) 30.7 % Monocytes (%) (Auto) 10.1 % Eosinophils (%) (Auto) 0.8 % Basophils (%) (Auto) 0.4 % Neutrophils # (Auto) 6.5 TH/MM3 Lymphocytes # (Auto) 3.4 TH/MM3 Monocytes # (Auto) 1.1 TH/MM3 Eosinophils # (Auto) 0.1 TH/MM3 Basophils # (Auto) 0.0 TH/MM3 CBC Comment DIFF FINAL Differential Comment Sodium Level 140 MEQ/L Potassium Level 3.5 MEQ/L Chloride Level 105 MEQ/L Carbon Dioxide Level 27.2 MEQ/L Anion Gap 8 MEQ/L Blood Urea Nitrogen 10 MG/DL Creatinine 0.94 MG/DL Estimat Glomerular Filtration 99 ML/MIN Rate Random Glucose 92 MG/DL Calcium Level 8.6 MG/DL Total Bilirubin 4.7 MG/DL Aspartate Amino Transf 249 U/L (AST/SGOT) Alanine Aminotransferase 482 U/L (ALT/SGPT) Alkaline Phosphatase 93 U/L Total Protein 6.7 GM/DL Albumin 3.6 GM/DL Physical Examination HEENT: Normocephalic; atraumatic; no jaundice. CHEST: CTA CARDIAC: RRR ABDOMEN: Soft, nondistended, RUQ tenderness; no hepatosplenomegaly; bowel sounds are present in all four quadrants. EXTREMITIES: No clubbing, cyanosis, or edema. SKIN: Normal; no rash; no jaundice. WASTEWATER TREATMENT SUPERVISOR: No focal deficits; alert and oriented times three. (SkyErma Moraes INCIDENT RESPONSE COORDINATOR) Assessment and Plan Plan ASSESSMENT: - N/V, Abdominal pain with elevated LFTs and abnormal imaging on HIDA, consistent with high grade common bile duct obstruction. Pt had Laparoscopic Cholecystectomy on 01/[address] at [facility] and was told that he had cholecystitis with sludge in the GB. He was doing good until Tuesday, when he suddenly developed N/V/Pain after eating a blackened fish with chips/queso. He was seen in the ER that night and discharged. Symptoms worsened and he came to ER for further evaluation. Abdomen/Pelvis CT (03/07/17)----> 1. Negative for an acute process. I do not see etiology for patient's abdominal pain. HIDA (03/07/17)----> No biliary activity at 2 hours, delayed images are pending. ADDENDUM: There is no biliary duct or intestinal activity at 4 hours characteristic of a high grade common bile duct obstruction. MRCP is pending, LFTs worsening- T. Bili 4.7, AST 249, ALT 482, Alk phosh 93. Pt had elevated WBC with reported fevers/chills. Improved today. ? Retained stone, ? Stricture, ? Sludge in CBD. Will await MRCP. Keep NPO. Possible ERCP. - Elevated LFTs, in obstructive pattern. He denies any history of liver problems. He does not drink ETOH regularly- last had one beer a few weeks ago. No herbal supplements. No liver disease in the family. T. Bili 4.7, AST 249, ALT 482 , Alk phosh 93. MRCP pending. Hepatitis panel pending. - Leukocytosis. WBC 14.9 down to 11.2. Pt reports fevers/chills at home. He has not had any since his admission. PLAN: - NPO - MRCP- MRI has not received checklist, nurse reports this was faxed- asked for her to re-fax this and notified MRI that it was completed - IVF - Add Protonix - Add Lipase to today's labs - CBC, CMP in am - ? Retained stone, ? Sludge, ? Stricture in CBD. Await MRCP, possible ERCP depending on results - Further recommendations to follow based on results of above - PT seen and examined by Dr. Packer and myself and this note is written on her behalf (Erma Swanson) Physician Comments seen, examined agree with above (Ofelia Packer MD) Erma Swanson March 08, 2017 11:58 Ofelia Packer MD March 08, 2017 20:05
[2017-03-08] MEDS: PANTOPRAZOLE SODIUM 40 MG VIAL IV PUSH SCH (13:00)
[2017-03-08 13:23] LABS: AMPHETAMINE, URINE NEG (NEG); BARBITURATES, URINE NEG (NEG); COCAINE, URINE NEG (NEG)
--- NOTE | 2017-03-08 15:10 | RADRPT ---
EXAM DATE/TIME: 03/08/2017 14:09 [facility] COMPARISON: CT ABDOMEN & PELVIS W/O CONTRAST, March 07, 2017, 11:54. INDICATIONS : Pain. Nausea and vomiting. MEDICAL HISTORY : None. SURGICAL HISTORY : Cholecystectomy. ENCOUNTER: Subsequent ACUITY: 1 day PAIN SCORE: 5/10 LOCATION: Epigastric. TECHNIQUE: Multiplanar, multisequence magnetic resonance imaging of the abdomen was performed. High-resolution 3D dataset was utilized to reconstruct maximum-intensity projection (MIP) images. FINDINGS: INTRAHEPATIC BILE DUCTS: Within normal limits. No significant anatomical variant is present. EXTRAHEPATIC BILE DUCTS: The common bile duct measures 6-7 mm. No stone or filling defect is identified. GALLBLADDER: Status post cholecystectomy. LIVER: Normal size and signal intensity. No concerning liver lesion is identified on this non-contrast exam. PANCREAS: The main pancreatic duct is normal in size. There is no significant anatomical variant. Signal inte nsity is within normal limits. No mass is visualized on this non-contrast exam. OTHER: The remaining visualized structures demonstrate no acute abnormality on this non-contrast exam. CONCLUSION: Status post cholecystectomy. Intrahepatic and extrahepatic biliary ducts within normal limits. Mamadou Guerra MD on March 08, 2017 at 15:03 Board Certified Radiologist. This report was verified electronically.
[2017-03-08 15:38] VITALS: BP 144/82; PULSE 54; RESP 23; TEMP 98; O2SAT 100
[2017-03-08] MEDS: NICOTINE 21 MG/24 HR PATCH T-DERMAL SCH (16:31)
[2017-03-08] MEDS: LORazepam 2 MG/ML VIAL IV PUSH PRN ×2 (16:31→23:07)
[2017-03-08 19:25] VITALS: BP 165/77; PULSE 64; RESP 21; TEMP 97.7; O2SAT 100
[2017-03-08] MEDS: REMOVE OLD PATCH T-DERMAL SCH (21:00)
[2017-03-09] VITALS (7 sets, daily range): BP systolic 126–166; BP diastolic 73–99; PULSE 59–79; RESP 18–21; TEMP 98–98.9; O2SAT 96–100
[2017-03-09] MEDS: HYDROmorphone HCL PF 1 MG/ML VIAL IV PUSH PRN ×3 (03:55→23:35)
[2017-03-09] MEDS: SODIUM CHLORIDE 0.9% FLUSH 10 ML FLUSH IV FLUSH PRN (03:55)
[2017-03-09 05:37] LABS: AUTOMATED NEUTROPHIL # 4.3 TH/MM3 (1.8-7.7); BASOPHIL # 0.1 TH/MM3 (0-0.2); BASOPHIL % 0.6 % (0.0-2.0); EOSINOPHIL # 0.2 TH/MM3 (0-0.4); HEMATOCRIT 44.7 % (39.0-51.0); HEMO FLAGS DIFF FINAL; LYMPH % 41.3 % (9.0-44.0); LYMPHOCYTE # 3.7 TH/MM3 (1.0-4.8); MEAN CELL VOLUME 84.4 FL (80.0-100.0); MEAN CORPUSCULAR HEMOGLOBIN 28.6 PG (27.0-34.0); MEAN CORPUSCULAR HGB CONC 33.9 % (32.0-36.0); MONO % 8.4 % (0.0-8.0); NEUT % 47.7 % (16.0-70.0); PLATELET COUNT 181 TH/MM3 (150-450); RED BLOOD COUNT 5.29 MIL/MM3 (4.50-5.90); RED CELL DISTRIBUTION WIDTH 13.2 % (11.6-17.2)
[2017-03-09 06:03] LABS: BICARBONATE 25.6 MEQ/L (21.0-32.0); MAGNESIUM 2.3 MG/DL (1.5-2.5); POTASSIUM 3.6 MEQ/L (3.5-5.1)
[2017-03-09 06:08] LABS: INDIRECT BILIRUBIN 1.7 MG/DL (0.0-0.8); TOTAL BILIRUBIN ADULT 2.5 MG/DL (0.2-1.0)
[2017-03-09] MEDS: SODIUM CHLORIDE 0.9% FLUSH 10 ML FLUSH IV FLUSH SCH ×2 (08:50→21:00)
[2017-03-09] MEDS: NS + KCL 20 MEQ INJ 1,000 ML IV SCH ×2 (08:50→18:39)
[2017-03-09] MEDS: NICOTINE 21 MG/24 HR PATCH T-DERMAL SCH (08:50)
[2017-03-09] MEDS ORDERED: REMOVE OLD PATCH T-DERMAL SCH (09:00)
--- NOTE | 2017-03-09 09:37 | HHI.PR ---
Subjective Remarks No new complaints. Pt is asking to eat. Objective Vitals Vital Signs Date Time Temp Pulse Resp B/P Pulse Ox O2 Delivery O2 Flow Rate FiO2 03/09/17 07:17 98.8 70 18 139/77 99 03/09/17 04:16 98.9 78 21 140/92 96 03/09/17 00:56 64 20 140/99 99 03/08/17 19:25 97.7 64 21 165/77 100 03/08/17 15:38 98.0 54 23 144/82 100 03/08/17 11:21 98.0 51 22 122/64 99 Result Diagram: 03/09/17 0445 03/09/17 0445 Imaging Last Impressions Abdomen/Pelvis CT 03/07/17 1123 Signed Impressions: Service Date/Time: Tuesday, March 07, 2017 11:54 - CONCLUSION: 1. Negative for an acute process. I do not see etiology for patient's abdominal pain. Duy Harman MD FACR Hepatobiliary Scan Nuclear Medicine 03/07/17 0000 Signed Impressions: Service Date/Time: Tuesday, March 07, 2017 13:55 - CONCLUSION: No biliary activity at 2 hours, delayed images are pending. Duy Harman MD FACRADDENDUM : There is no biliary duct or intestinal activity at 4 hours characteristic of high grade common bile duct obstruction. Luis Enrique Zheng MD Objective Remarks GENERAL: This is a well-nourished, well-developed patient, in no apparent distress. CARDIOVASCULAR: Regular rate and rhythm without murmurs, gallops, or rubs. RESPIRATORY: Clear to auscultation. Breath sounds equal bilaterally. No wheezes , rales, or rhonchi. GASTROINTESTINAL: Abdomen soft, non-tender, nondistended. Normal active bowel sounds MUSCULOSKELETAL: Extremities without clubbing, cyanosis, or edema. NEURO: Alert & Oriented x4 to person, place, time, situation. Moves all ext x4 A/P Problem List: (1) Abdominal pain Status: Acute Plan: - comgmt with [facility] Surgery [facility] GI - s/p cholecystectomy 01/13/[address] Cooper Mullins - Pt admitted with recurrent abd pain, n/v, and reported episode of hematemesis - CT abd/pelvis (03/07/17) --> NO acute findings - HIDA (03/07/17) --> no biliary duct or intestinal activity at 4 hours - MRCP (03/08/17) --> NO acute findings - Case d/w Dr. Ge (03/08/17) - lipase improving 3008 (03/08/17), 556 (03/09/17) - transaminases also improving - continue IVF - suspect passed biliary stone - [place] prn pain - repeat lipase, LFTs, BMP in AM - ERCP (03/09/17) --> performed by Dr. Velásquez, showed NO obstruction. sludge - dilaudid prn pain (2) Elevated LFTs Status: Acute Plan: - obtain hepatitis panel - repeat LFTs in AM - see above Problem Qualifiers (1) Abdominal pain: Qualified Code: R10.13 - Epigastric pain Keanu Carreno DO March 09, 2017 09:37
[2017-03-09] MEDS: ACETAMINOPHEN/HYDROcodone 325 MG/5 MG TAB PO PRN (10:54)
[2017-03-09] MEDS ORDERED: HYDROmorphone HCL PF 2 MG/ML VIAL IV PUSH ONE (12:46)
--- NOTE | 2017-03-09 12:56 | RADRPT ---
EXAM DATE/TIME: 03/09/2017 11:57 [facility] COMPARISON: No previous studies available for comparison. INDICATIONS : Obstruction. Epigastric pain with vomiting. Cholecystectomy 1 month ago. FLUORO TIME: 2.3 minutes IMAGE COUNT: 2 CONTRAST: Instilled by Ordering Physician MEDICAL HISTORY : None. SURGICAL HISTORY : Cholecystectomy. ENCOUNTER: Subsequent ACUITY: 4 - 6 days PAIN SCORE: Non-responsive. LOCATION: Epigastric. FINDINGS: An ERCP was performed by the ordering physician. The images demonstrate mild dilatation of the common bile duct and intrahepatic ducts CONCLUSION: ERCP as above. Sheldon Metcalf MD on March 09, 2017 at 12:54 Board Certified Radiologist. This report was verified electronically.
--- NOTE | 2017-03-09 12:58 | PD.PROCEDR ---
GI Procedure REFERRING PHYSICIAN Dr. Carreno PROCEDURE PERFORMED ERCP with sphincterotomy and balloon extraction INDICATION FOR PROCEDURE Abdominal pain with elevation of liver function tests and lipase with an abnormal high doses suggesting obstruction PROCEDURE: The procedure, risks and benefits were discussed with Mr. Roach and informed consent was obtained. Anesthesia sedated him with Diprivan. He was placed in the left lateral decubitus position. ERCP: Patient was placed in a prone position. The Pentax videoscope was introduced through the oropharynx and advanced to the second portion of the duodenum where the ampula was identified. FINDINGS: The ampulla this was unremarkable and within normal limits couple of attempts were made to freely cannulate the common bile duct the wire would take the direction of the pancreatic duct and so a precut partial sphincterotomy was performed and then we were able to obtain easy cannulation of the common bile duct which appeared to be of normal caliber as the cut was made some debris was noted around the area once we got deep cannulation the sphincterotomy was extended the common bile duct and the intrahepatics were unremarkable using an 8 mm balloon we were able to sweep the common bile duct with no further debris or filling defects it was noted that the bile ducts were free of filling defects and the bile duct was able to slowly but freely empty out and so the procedure was then terminated ESTIMATED BLOOD LOSS: None SPECIMENS REMOVED: None COMPLICATIONS: None IMPRESSION: Biliary sludge PLAN: Supportive care Monitor labs Saurabh Velásquez MD March 09, 2017 12:57
[2017-03-09] MEDS: PANTOPRAZOLE SODIUM 40 MG VIAL IV PUSH SCH (13:00)
[2017-03-09] MEDS ORDERED: PROPOFOL 200 MG/20 ML AMP IV ONE (17:41)
[2017-03-09] MEDS: REMOVE OLD PATCH T-DERMAL SCH (21:00)
[2017-03-09] MEDS: LORazepam 2 MG/ML VIAL IV PUSH PRN (23:35)
[2017-03-10] MEDS: NS + KCL 20 MEQ INJ 1,000 ML IV SCH ×3 (04:36→17:30)
[2017-03-10 04:52] VITALS: BP 130/70; PULSE 68; RESP 19; TEMP 98.2; O2SAT 97
[2017-03-10 06:26] LABS: AUTOMATED NEUTROPHIL # 6.4 TH/MM3 (1.8-7.7); BASOPHIL % 0.3 % (0.0-2.0); EOSINOPHIL # 0.2 TH/MM3 (0-0.4); EOSINOPHIL % 1.5 % (0.0-4.0); HEMO FLAGS DIFF FINAL; LYMPHOCYTE # 3.5 TH/MM3 (1.0-4.8); MEAN CELL VOLUME 84.9 FL (80.0-100.0); MEAN CORPUSCULAR HGB CONC 34.1 % (32.0-36.0); MONO % 7.9 % (0.0-8.0); NEUT % 58.3 % (16.0-70.0); PLATELET COUNT 188 TH/MM3 (150-450); RED BLOOD COUNT 5.41 MIL/MM3 (4.50-5.90); RED CELL DISTRIBUTION WIDTH 13.5 % (11.6-17.2)
[2017-03-10 06:55] LABS: ANION GAP 8 MEQ/L (5-15); AST (GOT) 37 U/L (15-37); BICARBONATE 27.3 MEQ/L (21.0-32.0); BLOOD UREA NITROGEN 10 MG/DL (7-18); CHLORIDE 103 MEQ/L (98-107); MAGNESIUM 2.3 MG/DL (1.5-2.5); POTASSIUM 3.8 MEQ/L (3.5-5.1); SODIUM (NA) 138 MEQ/L (136-145)
[2017-03-10 06:58] LABS: ALKALINE PHOSPHATASE 110 U/L (45-117); ALT (GPT) 283 U/L (12-78); TOTAL BILIRUBIN ADULT 1.5 MG/DL (0.2-1.0)
[2017-03-10 07:36] VITALS: BP 127/62; PULSE 69; RESP 18; TEMP 98.2; O2SAT 97
[2017-03-10] MEDS: HYDROmorphone HCL PF 1 MG/ML VIAL IV PUSH PRN ×3 (08:00→22:43)
--- NOTE | 2017-03-10 08:40 | HHI.PR ---
Subjective Remarks Patient reports that his pain is controlled currently with IV pain medication He is tolerating clear liquid diet Afebrile No further vomiting since after the ERCP yesterday. Objective Vitals Vital Signs Date Time Temp Pulse Resp B/P Pulse Ox O2 Delivery O2 Flow Rate FiO2 03/10/17 07:36 98.2 69 18 127/62 97 03/10/17 04:52 98.2 68 19 130/70 97 03/10/17 02:03 20 03/09/17 23:33 98.0 65 19 132/73 99 03/09/17 19:57 98.0 59 18 126/73 99 03/09/17 16:14 98.1 70 18 166/96 100 03/09/17 13:00 53 18 109/98 99 03/09/17 12:50 55 18 114/111 98 03/09/17 12:40 98.5 61 18 173/114 97 03/09/17 11:58 18 03/09/17 10:39 98.2 79 20 143/84 100 03/09/17 03/09/17 03/10/17 14:59 22:59 06:59 Intake Total 250 ml Balance 250 ml Intake Other 250 ml Result Diagram: 03/10/17 0602 03/10/17 0602 Other Results Laboratory Tests Test 03/08/17 03/08/17 03/09/17 03/10/17 11:20 12:50 04:45 06:02 Hepatitis A IgM Antibody NEGATIVE Hepatitis B Surface Antigen NEGATIVE Hepatitis B Core IgM Antibody NEGATIVE Hepatitis C Antibody NEGATIVE Urine Opiates Screen NEG Urine Barbiturates Screen NEG Urine Amphetamines Screen NEG Urine Benzodiazepines Screen NEG Urine Cocaine Screen NEG Urine Cannabinoids Screen POS White Blood Count 9.0 TH/MM3 11.0 TH/MM3 Red Blood Count 5.29 MIL/MM3 5.41 MIL/MM3 Hemoglobin 15.2 GM/DL 15.7 GM/DL Hematocrit 44.7 % 46.0 % Mean Corpuscular Volume 84.4 FL 84.9 FL Mean Corpuscular Hemoglobin 28.6 PG 29.0 PG Mean Corpuscular Hemoglobin 33.9 % 34.1 % Concent Red Cell Distribution Width 13.2 % 13.5 % Platelet Count 181 TH/MM3 188 TH/MM3 Mean Platelet Volume 9.5 FL 9.2 FL Neutrophils (%) (Auto) 47.7 % 58.3 % Lymphocytes (%) (Auto) 41.3 % 32.0 % Monocytes (%) (Auto) 8.4 % 7.9 % Eosinophils (%) (Auto) 2.0 % 1.5 % Basophils (%) (Auto) 0.6 % 0.3 % Neutrophils # (Auto) 4.3 TH/MM3 6.4 TH/MM3 Lymphocytes # (Auto) 3.7 TH/MM3 3.5 TH/MM3 Monocytes # (Auto) 0.8 TH/MM3 0.9 TH/MM3 Eosinophils # (Auto) 0.2 TH/MM3 0.2 TH/MM3 Basophils # (Auto) 0.1 TH/MM3 0.0 TH/MM3 CBC Comment DIFF FINAL DIFF FINAL Differential Comment Sodium Level 141 MEQ/L 138 MEQ/L Potassium Level 3.6 MEQ/L 3.8 MEQ/L Chloride Level 105 MEQ/L 103 MEQ/L Carbon Dioxide Level 25.6 MEQ/L 27.3 MEQ/L Anion Gap 10 MEQ/L 8 MEQ/L Blood Urea Nitrogen 9 MG/DL 10 MG/DL Creatinine 0.68 MG/DL 0.90 MG/DL Estimat Glomerular Filtration 145 ML/MIN Rate Random Glucose 82 MG/DL 111 MG/DL Calcium Level 9.0 MG/DL 9.1 MG/DL Magnesium Level 2.3 MG/DL 2.3 MG/DL Total Bilirubin 2.5 MG/DL 1.5 MG/DL Direct Bilirubin 0.8 MG/DL 0.5 MG/DL Indirect Bilirubin 1.7 MG/DL 1.0 MG/DL Aspartate Amino Transf 86 U/L 37 U/L (AST/SGOT) Alanine Aminotransferase 381 U/L 283 U/L (ALT/SGPT) Alkaline Phosphatase 107 U/L 110 U/L Total Protein 6.4 GM/DL 6.6 GM/DL Albumin 3.4 GM/DL 3.4 GM/DL Lipase 556 U/L 4412 U/L Imaging Last Impressions Abdomen/Pelvis CT 03/07/17 1123 Signed Impressions: Service Date/Time: Tuesday, March 07, 2017 11:54 - CONCLUSION: 1. Negative for an acute process. I do not see etiology for patient's abdominal pain. Duy Harman MD FACR Hepatobiliary Scan Nuclear Medicine 03/07/17 0000 Signed Impressions: Service Date/Time: Tuesday, March 07, 2017 13:55 - CONCLUSION: No biliary activity at 2 hours, delayed images are pending. Duy Harman MD FACRADDENDUM : There is no biliary duct or intestinal activity at 4 hours characteristic of high grade common bile duct obstruction. Luis Enrique Zheng MD Objective Remarks General: NAD, AAOx3 Chest: CTA bilaterally Cardiac: Regular Abd: +BS, soft ND/Nt Ext: No edema A/P Problem List: (1) Abdominal pain Status: Acute Plan: - comgmt with [facility] GI - s/p cholecystectomy 01/13/[address] Cooper Mullins - Pt admitted with recurrent abd pain, n/v, and reported episode of hematemesis - CT abd/pelvis (03/07/17) --> NO acute findings - HIDA (03/07/17) --> no biliary duct or intestinal activity at 4 hours - MRCP (03/08/17) --> NO acute findings - Case d/w Dr. Ge (03/08/17) - Lipase had been improving 3008 (03/08/17), 556 (03/09/17) - ERCP (03/09/17) --> performed by Dr. Velásquez, showed NO obstruction. sludge - Suspect passed biliary stone - Lipase (03/10/17) over 4000 - Transaminases continue to improve - continue IVF - [place] prn pain - Dilaudid prn pain - Pt tolerating clear liquid diet - Repeat labs in AM - Encourage ambulation - Supportive care - DVT prophylaxis (2) Elevated LFTs Status: Acute Plan: - Hepatitis panel negative - repeat LFTs in AM - see above Assessment and Plan Patient examined. Assessment and plan formulated with Delores Hi PA-C. I agree with the above. Problem Qualifiers (1) Abdominal pain: Qualified Code: R10.13 - Epigastric pain Delores Hi March 10, 2017 08:40 Keanu Carreno DO March 11, 2017 11:57
--- NOTE | 2017-03-10 09:20 | HHI.GIFU ---
Subjective Remarks Resting in bed. Had some nausea/vomiting after taking clears last night, but states he is feeling much better this am. Tolerating clears now. Pain much improved- some mid epigastric discomfort, relieved with pain meds. No fevers. ( Erma Swanson) Objective Vitals I&O Vital Signs Date Time Temp Pulse Resp B/P Pulse Ox O2 Delivery O2 Flow Rate FiO2 03/10/17 07:36 98.2 69 18 127/62 97 03/10/17 04:52 98.2 68 19 130/70 97 03/10/17 02:03 20 03/09/17 23:33 98.0 65 19 132/73 99 03/09/17 19:57 98.0 59 18 126/73 99 03/09/17 16:14 98.1 70 18 166/96 100 03/09/17 13:00 53 18 109/98 99 03/09/17 12:50 55 18 114/111 98 03/09/17 12:40 98.5 61 18 173/114 97 03/09/17 11:58 18 03/09/17 10:39 98.2 79 20 143/84 100 I/O 03/09/17 03/09/17 03/09/17 03/10/17 03/10/17 03/10/17 07:00 15:00 23:00 07:00 15:00 23:00 Intake Total 250 ml Balance 250 ml Intake Other 250 ml Laboratory Laboratory Tests Test 03/10/17 06:02 White Blood Count 11.0 Red Blood Count 5.41 Hemoglobin 15.7 Hematocrit 46.0 Mean Corpuscular Volume 84.9 Mean Corpuscular Hemoglobin 29.0 Mean Corpuscular Hemoglobin 34.1 Concent Red Cell Distribution Width 13.5 Platelet Count 188 Mean Platelet Volume 9.2 Neutrophils (%) (Auto) 58.3 Lymphocytes (%) (Auto) 32.0 Monocytes (%) (Auto) 7.9 Eosinophils (%) (Auto) 1.5 Basophils (%) (Auto) 0.3 Neutrophils # (Auto) 6.4 Lymphocytes # (Auto) 3.5 Monocytes # (Auto) 0.9 Eosinophils # (Auto) 0.2 Basophils # (Auto) 0.0 CBC Comment DIFF FINAL Differential Comment Sodium Level 138 Potassium Level 3.8 Chloride Level 103 Carbon Dioxide Level 27.3 Anion Gap 8 Blood Urea Nitrogen 10 Creatinine 0.90 Random Glucose 111 Calcium Level 9.1 Magnesium Level 2.3 Total Bilirubin 1.5 Direct Bilirubin 0.5 Indirect Bilirubin 1.0 Aspartate Amino Transf 37 (AST/SGOT) Alanine Aminotransferase 283 (ALT/SGPT) Alkaline Phosphatase 110 Total Protein 6.6 Albumin 3.4 Lipase 4412 Imaging Last Impressions GI Procedure 03/09/17 0000 Signed Impressions: Service Date/Time: Thursday, March 09, 2017 11:57 - CONCLUSION: ERCP as above. Sheldon Metcalf MD Cholangiopancreatography MRI 03/08/17 0000 Signed Impressions: Service Date/Time: Wednesday, March 08, 2017 14:09 - CONCLUSION: Status post cholecystectomy. Intrahepatic and extrahepatic biliary ducts within normal limits. Mamadou Guerra MD Abdomen/Pelvis CT 03/07/17 1123 Signed Impressions: Service Date/Time: Tuesday, March 07, 2017 11:54 - CONCLUSION: 1. Negative for an acute process. I do not see etiology for patient's abdominal pain. Duy Harman MD FACR Hepatobiliary Scan Nuclear Medicine 03/07/17 0000 Signed Impressions: Service Date/Time: Tuesday, March 07, 2017 13:55 - CONCLUSION: No biliary activity at 2 hours, delayed images are pending. Duy Harman MD FACRADDENDUM : There is no biliary duct or intestinal activity at 4 hours characteristic of high grade common bile duct obstruction. Luis Enrique Zheng MD Physical Exam HEENT: Normocephalic; atraumatic; no jaundice. CHEST: CTA CARDIAC: RRR ABDOMEN: Soft, nondistended, mild epigastric tenderness; no hepatosplenomegaly ; bowel sounds are present in all four quadrants. EXTREMITIES: No clubbing, cyanosis, or edema. SKIN: Normal; no rash; no jaundice. GEODETIC TECHNICIAN: No focal deficits; alert and oriented times three. (Erma Swanson) Assessment and Plan Plan ASSESSMENT: - N/V, Abdominal pain with elevated LFTs and abnormal imaging on HIDA, consistent with high grade common bile duct obstruction. Pt had Laparoscopic Cholecystectomy on 01/[address] Mullins at [facility] and was told that he had cholecystitis with sludge in the GB. He was doing good until Tuesday, when he suddenly developed N/V/Pain after eating a blackened fish with chips/queso. He was seen in the ER that night and discharged. Symptoms worsened and he came to ER for further evaluation. Abdomen/Pelvis CT (03/07/17)----> 1. Negative for an acute process. I do not see etiology for patient's abdominal pain. HIDA (03/07/17)----> No biliary activity at 2 hours, delayed images are pending. ADDENDUM: There is no biliary duct or intestinal activity at 4 hours characteristic of a high grade common bile duct obstruction. MRCP (03/08/17)-----> Status post cholecystectomy. Intrahepatic and extrahepatic biliary ducts within normal limits. S/P ERCP with sphincterotomy and balloon extraction (03/09/17)-----> biliary sludge. Did have some nausea/vomiting after clears post procedure and Lipase went up to 4412 this am. Clinically, much improved today and tolerating clears. Pain improved. LFTs improving, T. Bili 1.5, AST 37, ALT 283, Alk Phosph 283. - Elevated LFTs, in obstructive pattern. CT/HIDA/MRCP as above. S/P ERCP, Sphincterotomy, Balloon extraction--> biliary sludge. LFTs improving. - Leukocytosis. Improved. PLAN: - Clear liquids - Cont. PPI - Cont. IVF - CMP, Lipase in am - Further recommendations to follow based on results of above - PT seen and examined by Dr. Packer and myself and this note is written on her behalf (Erma Swanson) Physician Comments seen, examined agree with above feeling better , hopefully home in am avoid etoh, fatty foods (Ofelia Packer MD) Erma Swanson March 10, 2017 09:20 Ofelia Packer MD March 10, 2017 17:13
[2017-03-10] MEDS: SODIUM CHLORIDE 0.9% FLUSH 10 ML FLUSH IV FLUSH SCH ×2 (11:32→19:44)
[2017-03-10] MEDS: NICOTINE 21 MG/24 HR PATCH T-DERMAL SCH (11:32)
[2017-03-10 12:19] VITALS: BP 133/82; PULSE 72; RESP 18; O2SAT 98
[2017-03-10] MEDS: PANTOPRAZOLE SODIUM 40 MG VIAL IV PUSH SCH (14:43)
[2017-03-10 16:14] VITALS: BP 134/80; PULSE 67; RESP 18; O2SAT 99
[2017-03-10] MEDS: LORazepam 2 MG/ML VIAL IV PUSH PRN (19:44)
[2017-03-10 19:49] VITALS: BP 144/85; PULSE 92; RESP 20; TEMP 98.2; O2SAT 98
[2017-03-10 20:59] VITALS: BP 132/73; PULSE 69; RESP 16; TEMP 97.7; O2SAT 97
[2017-03-10] MEDS: REMOVE OLD PATCH T-DERMAL SCH (21:00)
[2017-03-11] MEDS: NS + KCL 20 MEQ INJ 1,000 ML IV SCH ×2 (01:20→09:00)
[2017-03-11] MEDS: HYDROmorphone HCL PF 1 MG/ML VIAL IV PUSH PRN (03:57)
[2017-03-11 04:00] VITALS: BP 120/63; PULSE 68; RESP 17; TEMP 98.6; O2SAT 98
[2017-03-11 06:52] LABS: ALKALINE PHOSPHATASE 107 U/L (45-117); ALT (GPT) 213 U/L (12-78); ANION GAP 7 MEQ/L (5-15); AST (GOT) 23 U/L (15-37); BICARBONATE 29.3 MEQ/L (21.0-32.0); BLOOD UREA NITROGEN 10 MG/DL (7-18); CHLORIDE 104 MEQ/L (98-107); GLOMERULAR FILTRATION RATE 102 ML/MIN (>89); POTASSIUM 3.7 MEQ/L (3.5-5.1); SODIUM (NA) 140 MEQ/L (136-145); TOTAL BILIRUBIN ADULT 1.1 MG/DL (0.2-1.0)
--- NOTE | 2017-03-11 07:50 | HHI.GIFU ---
Subjective Remarks Feeling much better. Tolerating clear liquids. No n/v. Hoping to go home this am. (Erma Swanson SANDIP) Objective Vitals I&O Vital Signs Date Time Temp Pulse Resp B/P Pulse Ox O2 Delivery O2 Flow Rate FiO2 03/11/17 04:27 18 03/11/17 04:00 98.6 68 17 120/63 98 03/11/17 01:34 Room Air 03/10/17 20:59 97.7 69 16 132/73 97 03/10/17 19:49 98.2 92 20 144/85 98 03/10/17 16:14 67 18 134/80 99 03/10/17 12:19 72 18 133/82 98 I/O 03/10/17 03/10/17 03/10/17 03/11/17 03/11/17 03/11/17 07:00 15:00 23:00 07:00 15:00 23:00 Intake Total 600 ml 1494 ml Balance 600 ml 1494 ml Intake Oral 600 ml 960 ml IV Total 534 ml # Voids 2 Laboratory Laboratory Tests Test 03/11/17 05:54 Sodium Level 140 Potassium Level 3.7 Chloride Level 104 Carbon Dioxide Level 29.3 Anion Gap 7 Blood Urea Nitrogen 10 Creatinine 0.92 Estimat Glomerular Filtration 102 Rate Random Glucose 89 Calcium Level 8.9 Total Bilirubin 1.1 Aspartate Amino Transf 23 (AST/SGOT) Alanine Aminotransferase 213 (ALT/SGPT) Alkaline Phosphatase 107 Total Protein 7.1 Albumin 3.6 Lipase 349 Imaging Last Impressions GI Procedure 03/09/17 0000 Signed Impressions: Service Date/Time: Thursday, March 09, 2017 11:57 - CONCLUSION: ERCP as above. Sheldon Metcalf MD Cholangiopancreatography MRI 03/08/17 0000 Signed Impressions: Service Date/Time: Wednesday, March 08, 2017 14:09 - CONCLUSION: Status post cholecystectomy. Intrahepatic and extrahepatic biliary ducts within normal limits. Mamadou Guerra MD Abdomen/Pelvis CT 03/07/17 1123 Signed Impressions: Service Date/Time: Tuesday, March 07, 2017 11:54 - CONCLUSION: 1. Negative for an acute process. I do not see etiology for patient's abdominal pain. Duy Harman MD FACR Hepatobiliary Scan Nuclear Medicine 03/07/17 0000 Signed Impressions: Service Date/Time: Tuesday, March 07, 2017 13:55 - CONCLUSION: No biliary activity at 2 hours, delayed images are pending. Duy Harman MD FACRADDENDUM : There is no biliary duct or intestinal activity at 4 hours characteristic of high grade common bile duct obstruction. Luis Enrique Zheng MD Physical Exam HEENT: Normocephalic; atraumatic; no jaundice. CHEST: CTA CARDIAC: RRR ABDOMEN: Soft, nondistended, mild epigastric tenderness; no hepatosplenomegaly ; bowel sounds are present in all four quadrants. EXTREMITIES: No clubbing, cyanosis, or edema. SKIN: Normal; no rash; no jaundice. INVESTMENT BANKING MANAGER: No focal deficits; alert and oriented times three. (Erma SwansonP) Assessment and Plan Plan ASSESSMENT: - N/V, Abdominal pain with elevated LFTs and abnormal imaging on HIDA, consistent with high grade common bile duct obstruction. Pt had Laparoscopic Cholecystectomy on 01/[address] Mullins at [facility] and was told that he had cholecystitis with sludge in the GB. He was doing good until Tuesday, when he suddenly developed N/V/Pain after eating a blackened fish with chips/queso. He was seen in the ER that night and discharged. Symptoms worsened and he came to ER for further evaluation. Abdomen/Pelvis CT (03/07/17)----> 1. Negative for an acute process. I do not see etiology for patient's abdominal pain. HIDA (03/07/17)----> No biliary activity at 2 hours, delayed images are pending. ADDENDUM: There is no biliary duct or intestinal activity at 4 hours characteristic of a high grade common bile duct obstruction. MRCP (03/08/17)-----> Status post cholecystectomy. Intrahepatic and extrahepatic biliary ducts within normal limits. S/P ERCP with sphincterotomy and balloon extraction (03/09/17)-----> biliary sludge. Did have some nausea/vomiting after clears post procedure and Lipase went up to 4412 yesterday. This has since normalized at 345. Clinically, he is tolerating clears, only mild discomfort and hoping to go home. LFTs improving, T. Bili 1.1, AST 23, ALT 213, Alk Phosph 107. - Elevated LFTs, in obstructive pattern. CT/HIDA/MRCP as above. S/P ERCP, Sphincterotomy, Balloon extraction--> biliary sludge. LFTs improving. - Leukocytosis. Improved. PLAN: - Okay to d/c home - Low fat diet - Avoid ETOH - FU [facility] 2 weeks - This note is written on Dr. Packer's behalf (Erma Swanson) Erma Swanson March 11, 2017 07:50 Ofelia Packer MD March 19, 2017 08:26
[2017-03-11 08:00] VITALS: BP 146/87; PULSE 59; RESP 18; TEMP 97.6; O2SAT 98
[2017-03-11] MEDS: SODIUM CHLORIDE 0.9% FLUSH 10 ML FLUSH IV FLUSH SCH (09:00)
[2017-03-11] MEDS: NICOTINE 21 MG/24 HR PATCH T-DERMAL SCH (09:00)
[2017-03-11] MEDS: ACETAMINOPHEN/HYDROcodone 325 MG/5 MG TAB PO PRN (09:29)
[2017-03-11 09:32] LABS: PHENCYCLIDINE URINE NEG (NEG)
[2017-03-11 09:33] LABS: BATH SALTS (MDPV) UR NEG (NEG); ECSTASY (MDMA) UR NEG (NEG); GABAPENTIN UR NEG (NEG); HEROIN (6-ACETYLMORPHINE) UR NEG (NEG); K2 SPICE UR NEG (NEG); OBMETHADONE UR NEG (NEG); OXYCODONE (PERCODAN) NEG (NEG)
[2017-03-11 09:34] LABS: HYDROMORPHONE U POS (NEG)
--- NOTE | 2017-03-11 10:01 | HHI.DS ---
Discharge Summary Admission Date March 07, 2017 at 16:20 Discharge Date: March 11, 2017 Admitting Diagnosis abdominal pain, elevated LFTs, intractable vomiting (1) Pancreatitis due to biliary obstruction Diagnosis: Principal (2) Abdominal pain Diagnosis: Secondary (3) Elevated LFTs Diagnosis: Secondary Consultants Dr. Ofelia Packer Brief History Patient is a pleasant 21-year-old male who underwent laparoscopic cholecystectomy on 01/13/[address] Cooper Mullins. Patient presented to the ER with complaint of recurrent abdominal pain associated with nausea or vomiting for 3-4 days prior to this admission. Patient reports that on 03/06/17, day prior to admission, he had some hematemesis. Patient also c/o dizziness for the last 2-3 days prior to admission. Workup in the ER was suggestive of mild dehydration. Patient started on intravenous fluids. Patient had CT of abdomen and pelvis (03/07/17) which showed no acute findings. Patient underwent HIDA scan which showed no biliary duct or intestinal activity at 4 hours. Patient admitted to [facility] for further evaluation and treatment CBC/BMP: 03/10/17 0602 03/11/17 0554 Significant Findings Laboratory Tests Test 03/08/17 03/09/17 03/10/17 03/11/17 12:50 04:45 06:02 05:54 Urine Hydromorphone Level POS (NEG) Urine Cannabinoids Screen POS (NEG) Urine Cannabinoids POS (NEG) Confirmation Monocytes (%) (Auto) 8.4 % (0.0-8.0) Total Bilirubin 2.5 MG/DL 1.5 MG/DL 1.1 MG/DL (0.2-1.0) (0.2-1.0) (0.2-1.0) Direct Bilirubin 0.8 MG/DL 0.5 MG/DL (0.0-0.2) (0.0-0.2) Indirect Bilirubin 1.7 MG/DL 1.0 MG/DL (0.0-0.8) (0.0-0.8) Aspartate Amino Transf 86 U/L (15-37) (AST/SGOT) Alanine Aminotransferase 381 U/L (12-78) 283 U/L (12-78) 213 U/L (12-78) (ALT/SGPT) Lipase 556 U/L 4412 U/L (73-393) (73-393) Random Glucose 111 MG/DL (74-106) Imaging Last Impressions GI Procedure 03/09/17 0000 Signed Impressions: Service Date/Time: Thursday, March 09, 2017 11:57 - CONCLUSION: ERCP as above. Sheldon Metcalf MD Cholangiopancreatography MRI 03/08/17 0000 Signed Impressions: Service Date/Time: Wednesday, March 08, 2017 14:09 - CONCLUSION: Status post cholecystectomy. Intrahepatic and extrahepatic biliary ducts within normal limits. Mamadou Guerra MD Abdomen/Pelvis CT 03/07/17 1123 Signed Impressions: Service Date/Time: Tuesday, March 07, 2017 11:54 - CONCLUSION: 1. Negative for an acute process. I do not see etiology for patient's abdominal pain. Duy Harman MD FACR Hepatobiliary Scan Nuclear Medicine 03/07/17 0000 Signed Impressions: Service Date/Time: Tuesday, March 07, 2017 13:55 - CONCLUSION: No biliary activity at 2 hours, delayed images are pending. Duy Harman MD FACRADDENDUM : There is no biliary duct or intestinal activity at 4 hours characteristic of high grade common bile duct obstruction. Luis Enrique Zheng MD PE at Discharge General: NAD, AAOx3 Chest: CTA bilaterally Cardiac: Regular Abd: +BS, soft ND/Nt Ext: No edema Hospital Course Pt previously underwent laparoscopic cholecystectomy on 01/13/[address] Cooper Mullins. He presented to the ED with complaint of recurrent abdominal pain associated with nausea or vomiting for 3-4 days prior to this admission. Labs at admission noted elevated LFTs with TBili 2.6, AST 215, ALT 266. CT abd/ pelvis (03/07/17) with no acute findings. HIDA (03/07/17) with no biliary duct or intestinal activity at 4 hours. GI was consulted. Lipase on 03/08 was elevated at 3008. MRCP was ordered (03/08/17) which noted no acute findings, intrahepatic and extrahepatic biliary ducts within normal limits. ERCP (03/09/17) performed by Dr. Velásquez, showed NO obstruction, just sludge. It is suspected that the pt passed biliary stone. Pt had some increased pain and vomiting following the procedure and repeat Lipase (03/10/17) was over 4000 but transaminases continued to improve. Pt was treated symptomatically inproved clinically and diet was advanced to clear liquid diet on 03/10 which he tolerated. His repeat labs on noted his lipase had normalized to 349. Pt was then advanced to low fat regular diet and discharged to home on 03/11. Pt will need to followup with GI in 2 weeks He will need to followup with his PCP, Dr. Soto, in 1 week. Pt Condition on Discharge: Stable Discharge Disposition: Discharge Home Discharge Instructions DIET: Follow Instructions for: Low Fat Diet Activities you can perform: Regular-No Restrictions Follow up Referrals: Gastroenterology - 2 Weeks @ [facility] PCP Follow-up - [address] Alexandru Soto Continued Medications: Ondansetron Odt (Zofran Odt) 4 Mg Tab 4 MG SL Q8HR May substitute non-ODT form. PRN Nausea/Vomiting #15 TAB Discontinued Medications: Dicyclomine (Bentyl) 20 Mg Tab 20 MG PO QID PRN ABDOMINAL CRAMPING #20 TAB Additional Information Patient examined. Assessment and plan formulated with Delores Hi PA-C. I agree with the above. Pt is comfortable. No abdominal pain. Pt is eager for discharge. f/u with PCP, in 1 week. F/u with GI, Dr. Packer, in 2 weeks. Delores Hi March 11, 2017 10:01 Keanu Carreno DO March 11, 2017 11:58
--- NOTE | 2017-03-11 10:22 | HHI.DCPOC ---
Discharge Care Plan Diagnosis: (1) Abdominal pain (2) Pancreatitis due to biliary obstruction (3) Elevated LFTs Goals to Promote Your Health - Pt is to followup with his PCP, Dr. Alexandru Soto, in 1 week, call for an appt. - Pt is to followup with [facility], Dr. Packer, in 2 weeks, call for an appt. Directions to Meet Your Goals Take your medications as prescribed Follow your dietary instruction Follow activity as directed Keep your appointments as scheduled Take your immunizations and boosters as scheduled If your symptoms worsen call your PCP, if no PCP go to Urgent Care Center or Emergency Room Smoking is Dangerous to Your Health. Avoid second hand smoke Call the 24-hour hour crisis hotline for domestic abuse at Delores Hi March 11, 2017 10:22 Keanu Carreno DO March 11, 2017 11:58
[2017-03-11] MEDS ORDERED: NORC5TAB PO (11:55)
[2017-03-11 12:00] VITALS: BP 138/78; PULSE 70; RESP 19; TEMP 97.6; O2SAT 98
== END 2017-03-11 12:41 | disposition home or self-care (01) | DRG 444 ==
LOC: NEPD 10:55 → OBSVTOIN 16:20 → NEDA 16:20 → UNDOADMOB 16:26 → NEDA 16:26 → NEPGCP 18:01 → NEDA 18:01 → INTOOBSV 03-10 11:20 → OBSVTOIN 03-10 11:20 → N06B 03-10 20:55
PROVIDERS: ADMIT Hospitalist; ATTEND Hospitalist
PROC: 0FC98ZZ Extirpation of Matter from Common Bile Duct, Via Natural or Artificial Opening Endoscopic (ICD-10-PCS; principal; 2017-03-09 11:30)
DX: K83.1 Obstruction of bile duct (principal); K85.90 Acute pancreatitis without necrosis or infection, unspecified; E86.0 Dehydration; E66.9 Obesity, unspecified; F17.210 Nicotine dependence, cigarettes, uncomplicated; Z68.32 Body mass index [BMI] 32.0-32.9, adult; Z90.49 Acquired absence of other specified parts of digestive tract; R11.2 Nausea with vomiting, unspecified
CPT/HCPCS: 74176; 74181; 74330; 76377; 78226; 80048; 80053; 80074; 80076; 80307; 81001; 83690; 83735; 85025; 96361; 96374; 96375; A9537; C9113; G0481; J0780; J1170; J1200; J1885; J2060; J2270; J2405; J3480; J7030

== ENCOUNTER 2017-04-28 10:00 | Observation (INO) | payer OTHER ==
[~2017-04-28 10:00] MED LIST changes: -BENT20TA PO; +NORC5TAB PO; -PROM25TA5 PO; -ZOFR4TAB PO
[2017-04-28 10:02] VITALS: BP 174/95; PULSE 50; RESP 20; TEMP 98.1; O2SAT 100
[2017-04-28] MEDS ORDERED: MORPHINE SULFATE 8 MG/ML INJ ONE (10:21)
[2017-04-28] MEDS ORDERED: SODIUM CHLOR 0.9% 1000 ML INJ 1,000 ML IV SCH (10:29)
[2017-04-28] MEDS ORDERED: SODIUM CHLORIDE 0.9% FLUSH 10 ML FLUSH IV FLUSH PRN (10:30)
[2017-04-28] MEDS ORDERED: MORPHINE SULFATE 8 MG/ML INJ IV PUSH ONE (10:30)
[2017-04-28] MEDS ORDERED: ONDANSETRON HCL 4 MG/2 ML VIAL IVP ONE (10:30)
[2017-04-28 10:57] VITALS: RESP 18; O2SAT 98
--- NOTE | 2017-04-28 11:09 | PD ---
HPI Chief Complaint: Abdominal Pain Time Seen by Provider: 10:18 Travel History International Travel<30 days: No Contact w/Intl Traveler<30days: No Traveled to known affect area: No History of Present Illness HPI 22yo M presents to the ED with c/o epigastric abdominal pain for 2 days. Pain is constant, sometimes goes to RUQ. Associated with NBNB vomiting. Denies any fever, chest pain, sob, urinary complaints, testicular pain, penile discharge, focal weakness or numbness. Pt was admitted from 03/07/17-03/11/17 for elevated lipase and had ERCP that was negative but suspected pt passed biliary stone. Pt had lap cholecystectomy 01/13/17. PFSH Past Medical History Blood Disorders: No Anxiety: Yes Depression: No Cancer: No Cardiovascular Problems: No Endocrine: No Genitourinary: No Immune Disorder: No Musculoskeletal: No Neurologic: No Psychiatric: Yes Reproductive: No Respiratory: No Pancreatitis: Yes Influenza Vaccination: No Past Surgical History Abdominal Surgery: Yes Cholecystectomy: Yes Tonsillectomy: Yes Social History Alcohol Use: No Tobacco Use: No Substance Use: Yes (thc) Allergies-Medications (Allergen,Severity, Reaction): Coded Allergies: Penicillin (Verified Allergy, Severe, 04/28/17) Sulfa (Verified Allergy, Unknown, 04/28/17) Aleve (Verified Adverse Reaction, Severe, Nausea/Vomiting, 04/28/17) Reported Meds & Prescriptions Reported Meds & Active Scripts Active Tylenol (Acetaminophen) 325 Mg Tab 650 Mg PO Q6H PRN [place] (Hydrocodone-Acetaminophen) 5-325 mg Tab 1 Tab PO Q6H PRN Zofran Odt (Ondansetron Odt) 4 Mg Tab 4 Mg SL Q8HR PRN May substitute non-ODT form. Review of Systems Except as stated in HPI: all other systems reviewed are Neg Physical Exam Narrative GENERAL: 22yo M in distress. SKIN: Diaphoretic. HEAD: Atraumatic. Normocephalic. EYES: Pupils equal and round. No scleral icterus. No injection or drainage. ENT: No nasal bleeding or discharge. Mucous membranes pink and moist. NECK: Trachea midline. No JVD. CARDIOVASCULAR: Regular rate and rhythm. No murmur appreciated. RESPIRATORY: No accessory muscle use. Clear to auscultation. Breath sounds equal bilaterally. GASTROINTESTINAL: Abdomen soft, +TTP epigastric region. +RUQ. No rebound tenderness or guarding. MUSCULOSKELETAL: No obvious deformities. No clubbing. No cyanosis. No edema. NEUROLOGICAL: Awake and alert. No obvious cranial nerve deficits. Motor grossly within normal limits. Normal speech. PSYCHIATRIC: Appropriate mood and affect; insight and judgment normal. Data Data Last Documented VS Vital Signs Date Time Temp Pulse Resp B/P Pulse Ox O2 Delivery O2 Flow Rate FiO2 04/28/17 10:57 18 98 Room Air 04/28/17 10:02 98.1 50 174/95 Orders Morphine Inj (Morphine Inj) (04/28/17 10:21) Complete Blood Count With Diff (04/28/17 10:29) Comprehensive Metabolic Panel (04/28/17 10:29) Lipase (04/28/17 10:29) Prothrombin Time / Inr (Pt) (04/28/17 10:29) Act Partial Throm Time (Ptt) (04/28/17 10:29) Urinalysis - C+S If Indicated (04/28/17 10:29) Ct Abd/Pel W Iv Contrast(Rout) (04/28/17 10:29) Iv Access Insert/Monitor (04/28/17 10:29) Ecg Monitoring (04/28/17 10:29) Oximetry (04/28/17 10:29) Ondansetron Inj (Zofran Inj) (04/28/17 10:30) Sodium Chlor 0.9% 1000 Ml Inj (Ns 1000 M (04/28/17 10:29) Sodium Chloride 0.9% Flush (Ns Flush) (04/28/17 10:30) Electrocardiogram (04/28/17 10:29) Morphine Inj (Morphine Inj) (04/28/17 10:30) Ondansetron Inj (Zofran Inj) (04/28/17 11:15) Morphine Inj (Morphine Inj) (04/28/17 12:00) Iohexol 350 Inj (Omnipaque 350 Inj) (04/28/17 12:28) Metoclopramide Inj (Reglan Inj) (04/28/17 13:30) Morphine Inj (Morphine Inj) (04/28/17 13:45) Admit Order (Ed Use Only) (04/28/17 14:53) Labs Laboratory Tests Test 04/28/17 04/28/17 10:47 12:35 White Blood Count 10.5 TH/MM3 Red Blood Count 5.96 MIL/MM3 Hemoglobin 17.5 GM/DL Hematocrit 51.0 % Mean Corpuscular Volume 85.6 FL Mean Corpuscular Hemoglobin 29.4 PG Mean Corpuscular Hemoglobin 34.4 % Concent Red Cell Distribution Width 13.7 % Platelet Count 216 TH/MM3 Mean Platelet Volume 10.0 FL Neutrophils (%) (Auto) 74.5 % Lymphocytes (%) (Auto) 19.9 % Monocytes (%) (Auto) 4.7 % Eosinophils (%) (Auto) 0.6 % Basophils (%) (Auto) 0.3 % Neutrophils # (Auto) 7.8 TH/MM3 Lymphocytes # (Auto) 2.1 TH/MM3 Monocytes # (Auto) 0.5 TH/MM3 Eosinophils # (Auto) 0.1 TH/MM3 Basophils # (Auto) 0.0 TH/MM3 CBC Comment DIFF FINAL Differential Comment Prothrombin Time 11.1 SEC Prothromb Time International 1.0 RATIO Ratio Activated Partial 25.8 SEC Thromboplast Time Sodium Level 140 MEQ/L Potassium Level 3.5 MEQ/L Chloride Level 107 MEQ/L Carbon Dioxide Level 26.3 MEQ/L Anion Gap 7 MEQ/L Blood Urea Nitrogen 10 MG/DL Creatinine 1.13 MG/DL Estimat Glomerular Filtration 80 ML/MIN Rate Random Glucose 117 MG/DL Calcium Level 9.8 MG/DL Total Bilirubin 1.2 MG/DL Aspartate Amino Transf 19 U/L (AST/SGOT) Alanine Aminotransferase 37 U/L (ALT/SGPT) Alkaline Phosphatase 83 U/L Total Protein 8.2 GM/DL Albumin 4.6 GM/DL Lipase 336 U/L Urine Color YELLOW Urine Turbidity CLEAR Urine pH 7.5 Urine Specific [place] GREATER THAN 1.050 Urine Protein TRACE mg/dL Urine Glucose (UA) NEG mg/dL Urine Ketones 40 mg/dL Urine Occult Blood NEG Urine Nitrite NEG Urine Bilirubin NEG Urine Urobilinogen LESS THAN 2.0 MG/DL Urine Leukocyte Esterase NEG Urine RBC 1 /hpf Urine WBC 2 /hpf Urine Mucus FEW /lpf Microscopic Urinalysis Comment CULT NOT INDICATED MDM Medical Decision Making Medical Screen Exam Complete: Yes Emergency Medical Condition: Yes Interpretation(s) EKG: Sinus bradycardia at 49bpm. Normal axis. No ST segment elevation or depression. Differential Diagnosis Acute pancreatitis vs. cholangitis vs. biliary obstruction vs. colitis Narrative Course 22yo M with epigastric abdominal pain and vomiting for 2 days. Labs reviewed, no leukocytosis. LFTs normal. Lipase normal. Bilirubin mildly elevated at 1.2. Pt given morphine, zofran and reglan which helped with pain and nausea. Pt has been given zofran x2 and reglan and still not tolerating PO. Discussed with Dr. Camarillo and accepted to his service for intractable vomiting. Diagnosis Primary Impression: Intractable vomiting with nausea Qualified Code: R11.2 - Intractable vomiting with nausea, unspecified vomiting type Admitting Information Admitting Physician Requests: Observation Referrals: Saurabh Velásquez MD call for appointment Patient Instructions: Narcotic given in the ED Additional Instructions: Please follow up with your GI or our GI chief construction inspector in 1-2 days. Return to the ED if symptoms worsen. Scripts Acetaminophen (Tylenol)325 Mg [id number] Mg PO Q6H PRN (PAIN SCALE 1 TO 4) #20 TAB Ref 0 Prov:Layla Beck DO 04/28/17 Layla Beck DO Apr 28, 2017 11:09
[2017-04-28] MEDS ORDERED: ONDANSETRON HCL 4 MG/2 ML VIAL IV PUSH ONE (11:15)
[2017-04-28 11:21] LABS: AUTOMATED NEUTROPHIL # 7.8 TH/MM3 (1.8-7.7); BASOPHIL % 0.3 % (0.0-2.0); EOSINOPHIL # 0.1 TH/MM3 (0-0.4); EOSINOPHIL % 0.6 % (0.0-4.0); HEMO FLAGS DIFF FINAL; LYMPH % 19.9 % (9.0-44.0); LYMPHOCYTE # 2.1 TH/MM3 (1.0-4.8); MEAN CELL VOLUME 85.6 FL (80.0-100.0); MEAN CORPUSCULAR HEMOGLOBIN 29.4 PG (27.0-34.0); MEAN CORPUSCULAR HGB CONC 34.4 % (32.0-36.0); MONO % 4.7 % (0.0-8.0); NEUT % 74.5 % (16.0-70.0); PLATELET COUNT 216 TH/MM3 (150-450); RED BLOOD COUNT 5.96 MIL/MM3 (4.50-5.90); RED CELL DISTRIBUTION WIDTH 13.7 % (11.6-17.2); WHITE BLOOD COUNT 10.5 TH/MM3 (4.0-11.0)
[2017-04-28 11:23] LABS: APTT (PATIENT) 25.8 SEC (24.3-30.1); PROTHROMBIN TIME - PATIENT 11.1 SEC (9.8-11.6)
[2017-04-28 11:27] LABS: ANION GAP 7 MEQ/L (5-15); AST (GOT) 19 U/L (15-37); BICARBONATE 26.3 MEQ/L (21.0-32.0); BLOOD UREA NITROGEN 10 MG/DL (7-18); CHLORIDE 107 MEQ/L (98-107); GLOMERULAR FILTRATION RATE 80 ML/MIN (>89); POTASSIUM 3.5 MEQ/L (3.5-5.1); SODIUM (NA) 140 MEQ/L (136-145)
[2017-04-28 11:31] LABS: ALKALINE PHOSPHATASE 83 U/L (45-117); ALT (GPT) 37 U/L (12-78); TOTAL BILIRUBIN ADULT 1.2 MG/DL (0.2-1.0)
[2017-04-28] MEDS ORDERED: MORPHINE SULFATE 4 MG/ML INJ IV PUSH ONE ×2 (12:00→13:45)
[2017-04-28] MEDS ORDERED: IOHEXOL 350 MG/ML 10 ML VIAL (for RAD DIAG) IV ONE (12:28)
[2017-04-28 12:51] LABS: BLOOD, URINE NEG (NEG); GLUCOSE,URINE NEG (NEG); KETONE, URINE 40 mg/dL (NEG); MUCUS URINE FEW /lpf (OCC); NITRITE,URINE NEG (NEG); PH, URINE 7.5 (5.0-8.5); URINE COLOR YELLOW (YELLW/STRAW)
[2017-04-28 12:52] LABS: COMMENT (UR) CULT NOT INDICATED; CULTURE IF INDICATED CULT NOT INDICATED
--- NOTE | 2017-04-28 13:00 | RADRPT ---
EXAM DATE/TIME: 04/28/2017 12:14 [facility] COMPARISON: CT ABDOMEN & PELVIS W CONTRAST, January 07, 2016, 11:21. INDICATIONS : Epigastric abdomen pain, with vomiting and nausea. IV CONTRAST: 87 cc Omnipaque 350 (iohexol) IV ORAL CONTRAST: No oral contrast ingested. RADIATION DOSE: 10.11 CTDIvol (mGy) MEDICAL HISTORY : None SURGICAL HISTORY : Tonsillectomy. Pacemaker.Cholecystectomy.Pancreatitis ENCOUNTER: Initial ACUITY: 3 days PAIN SCALE: 4/10 LOCATION: Abdomen TECHNIQUE: Volumetric scanning of the abdomen and pelvis was performed. Using automated exposure control and ad justment of the mA and/or kV according to patient size, radiation dose was kept as low as reasonably achievable to obtain optimal diagnostic quality images. DICOM format image data is available electro nically for review and comparison. FINDINGS: LOWER LUNGS: The visualized lower lungs are clear. LIVER: Homogeneous density without lesion. There is no dilation of the biliary tree. No calcified gallston es. Status post cholecystectomy. SPLEEN: Normal size without lesion. PANCREAS: Within normal limits. KIDNEYS: Normal in size and shape. There is no mass, stone or hydronephrosis. ADRENAL GLANDS: Within normal limits. VASCULAR: There is no aortic aneurysm. BOWEL/MESENTERY: The stomach, small bowel, and colon demonstrate no acute abnormality. There is no free intraperitone al air or fluid. ABDOMINAL WALL: Within normal limits. RETROPERITONEUM: There is no lymphadenopathy. BLADDER: No wall thickening or mass. REPRODUCTIVE: Within normal limits. INGUINAL: There is no lymphadenopathy or hernia. MUSCULOSKELETAL: Within normal limits for patient age. CONCLUSION: No acute disease. Link Fox MD on April 28, 2017 at 12:48 Board Certified Radiologist. This report was verified electronically.
[2017-04-28] MEDS ORDERED: METOCLOPRAMIDE INJ 10 MG in SODIUM CHLORIDE 0.9% INJ 50 ML IV ONE (13:30)
[2017-04-28] MEDS ORDERED: TYLE325T PO (14:37)
--- NOTE | 2017-04-28 15:02 | EKG ---
Date Performed: 04/28/2017 Time Performed: 11:08:11 PTAGE: 22 years EKG: SINUS BRADYCARDIA BORDERLINE ECG PREVIOUS TRACING : 07/03/2016 18.15 DOCTOR: Ted Byrd Interpretating Date/Time 04/28/2017 15:01:22
[2017-04-28] MEDS ORDERED: ACETAMINOPHEN 325 MG TAB PO PRN (15:15)
[2017-04-28] MEDS: LACTULOSE SYRUP 20 GM/30 ML CUP PO SCH ×4 (15:30→21:19)
[2017-04-28] MEDS ORDERED: ACETAMINOPHEN/HYDROcodone 325 MG/5 MG TAB PO PRN (15:45)
--- NOTE | 2017-04-28 16:04 | HHI.HP ---
HPI Service [facility] Hospitalists Primary Care Physician Alexandru Soto M.D. Admission Diagnosis Intractable vomiting Chief Complaint: Abdominal pain and N/V Travel History International Travel<30 Days: No Contact w/Intl Traveler <30 Da: No Traveled to Known Affected Are: No History of Present Illness Mr. Roach is a 22 y/o WM who was previously underwent laparoscopic cholecystectomy on 01/13/[address] Cooper Mullins. He was then admitted from to 03/11/17 with recurrent abdominal pain associated with nausea or vomiting. Labs at the time of that admission noted elevated LFTs with TBili 2.6, AST 215, ALT 266. Lipase on 03/08 was elevated at 3008. Imaging studies during that admission included CT Abd/pelvis/HIDA scan/MRCP all of which were unrevealing. Pt underwent evaluation with ERCP (03/09/17) performed by Dr. Velásquez, which showed NO obstruction, just sludge. It was suspected that the pt passed biliary stone. Pt developed some post-ERCP pancreatitis but improved clinically. He was discharged home and had been doing well up until around 5 days ago. He states that he started having epigastric abdominal pain and poor appetite. He started taking Oxycodone which he had left over from another prescription. He was not able to eat much due to the pain. This continued over the last few days and he then developed nausea/vomiting and this prompted the patient to go to the ED for further evaluation. Pts labs at admission noted improved LFTs, TBili 1.2, AST 19, ALT 37, AlkPhos 83. Lipase was WNL at 336. CT Abd/pelvis did not indicate any acute issues. It did revealed a fair amount of stool in the rectum and some gaseous distension of the stomach . Pt reports that he has had some constipation since taking the narcotics. His last BM was 2 days ago. He was given 3 doses of IV Morphine in the ED but is still complaining of abdominal pain. Pt has also received IV Zofran and Reglan but was still feeling nauseated. Review of Systems Constitutional: DENIES: Fever, Chills Eyes: DENIES: Vision loss Ears, nose, mouth, throat: DENIES: Hearing loss Respiratory: DENIES: Cough, Shortness of breath Cardiovascular: DENIES: Chest pain, Dyspnea on Exertion, Lower Extremity Edema Gastrointestinal: COMPLAINS OF: Abdominal pain, Constipation, Nausea, Vomiting Genitourinary: DENIES: Hematuria, Dysuria Musculoskeletal: DENIES: Back pain Integumentary: DENIES: Rash Neurologic: DENIES: Headache Psychiatric: DENIES: Confusion Past Family Social History Past Medical History Presumed gallstone pancreatitis/post-ERCP pancreatitis Past Surgical History Lap Sonya 12/2016 ERCP 03/09/2017 Tonsillectomy/Adenoidectomy Reported Medications Tylenol (Acetaminophen) 325 Mg Tab 650 Mg PO Q6H PRN [place] (Hydrocodone-Acetaminophen) 5-325 mg Tab 1 Tab PO Q6H PRN Zofran Odt (Ondansetron Odt) 4 Mg Tab 4 Mg SL Q8HR PRN May substitute non-ODT form. Allergies: Coded Allergies: Penicillin (Verified Allergy, Severe, 04/28/17) Sulfa (Verified Allergy, Unknown, 04/28/17) Aleve (Verified Adverse Reaction, Severe, Nausea/Vomiting, 04/28/17) Family History Noncontributory Social History Denies any alcohol (+)Marijuana use, daily (+)Tobacco use Pt works as a electronics system mechanic Completed high school. Physical Exam Vital Signs Vital Signs Date Time Temp Pulse Resp B/P Pulse Ox O2 Delivery O2 Flow Rate FiO2 04/28/17 10:57 18 98 Room Air 04/28/17 10:20 18 04/28/17 10:02 98.1 50 20 174/95 100 Room Air Physical Exam GENERAL: This is a well-nourished, well-developed patient, in no apparent distress. HEENT: Atraumatic. Normocephalic. No temporal or scalp tenderness. No scleral icterus. No injection or drainage. Airway patent. NECK: Trachea midline, supple, nontender. CARDIO: Regular. RESP: CTA bilaterally. No wheezes, rales, or rhonchi. ABD: Decreased BS, soft, tenderness on palpation of the RLQ and LLQ EXT: Extremities without clubbing, cyanosis, or edema. NEURO: Awake and alert. Motor and sensory grossly within normal limits. Normal speech. Laboratory Laboratory Tests Test 04/28/17 04/28/17 10:47 12:35 White Blood Count 10.5 Red Blood Count 5.96 Hemoglobin 17.5 Hematocrit 51.0 Mean Corpuscular Volume 85.6 Mean Corpuscular Hemoglobin 29.4 Mean Corpuscular Hemoglobin 34.4 Concent Red Cell Distribution Width 13.7 Platelet Count 216 Mean Platelet Volume 10.0 Neutrophils (%) (Auto) 74.5 Lymphocytes (%) (Auto) 19.9 Monocytes (%) (Auto) 4.7 Eosinophils (%) (Auto) 0.6 Basophils (%) (Auto) 0.3 Neutrophils # (Auto) 7.8 Lymphocytes # (Auto) 2.1 Monocytes # (Auto) 0.5 Eosinophils # (Auto) 0.1 Basophils # (Auto) 0.0 CBC Comment DIFF FINAL Differential Comment Prothrombin Time 11.1 Prothromb Time International 1.0 Ratio Activated Partial 25.8 Thromboplast Time Sodium Level 140 Potassium Level 3.5 Chloride Level 107 Carbon Dioxide Level 26.3 Anion Gap 7 Blood Urea Nitrogen 10 Creatinine 1.13 Estimat Glomerular Filtration 80 Rate Random Glucose 117 Calcium Level 9.8 Total Bilirubin 1.2 Aspartate Amino Transf 19 (AST/SGOT) Alanine Aminotransferase 37 (ALT/SGPT) Alkaline Phosphatase 83 Total Protein 8.2 Albumin 4.6 Lipase 336 Urine Color YELLOW Urine Turbidity CLEAR Urine pH 7.5 Urine Specific [place] GREATER THAN 1.050 Urine Protein TRACE Urine Glucose (UA) NEG Urine Ketones 40 Urine Occult Blood NEG Urine Nitrite NEG Urine Bilirubin NEG Urine Urobilinogen LESS THAN 2.0 Urine Leukocyte Esterase NEG Urine RBC 1 Urine WBC 2 Urine Mucus FEW Microscopic Urinalysis Comment CULT NOT INDICATED Result Diagram: 04/28/17 1047 04/28/17 1047 Imaging Last Impressions Abdomen/Pelvis CT 04/28/17 1029 Signed Impressions: Service Date/Time: March 12:14 - CONCLUSION: No acute disease. Link Fox MD Septic Shock Reassessment Heart: Regular rate and rhythm Lungs: Clear Skin: Warm Peripheral Pulses: Bounding Right Radial Bounding Left Radial Bounding Right Popliteal Bounding Left Popliteal Bounding Right Dorsalis Pedis Bounding Left Dorsalis Pedis Bounding Right Posterior Tibial Bounding Left Posterior Tibial Assessment and Plan Problem List: (1) Abdominal pain Status: Acute Plan: - Pt is a 22 y/o who previously underwent laparoscopic cholecystectomy on and was subsequently admitted from 03/07/17 to 03/11/17 with recurrent abdominal pain associated with nausea or vomiting. Labs at the time of that admission noted elevated LFTs and elevated Lipase. Imaging studies during that admission included CT Abd/pelvis/HIDA scan/MRCP all of which were unrevealing. Pt underwent evaluation with ERCP (03/09/17) performed by Dr. Velásquez, which showed NO obstruction, just sludge. It was suspected that the pt passed biliary stone. Pt developed some post-ERCP pancreatitis but improved clinically. - Around 5 days ago he started having epigastric abdominal pain and poor appetite. He started taking Oxycodone which he had left over from another prescription. This continued over the last few days and he then developed nausea/vomiting and this prompted the patient to go to the ED for further evaluation. - Labs at admission noted improved LFTs, TBili 1.2, AST 19, ALT 37, AlkPhos 83. Lipase was WNL at 336. - CT Abd/pelvis did not indicate any acute issues. It did revealed a fair amount of stool in the rectum and some gaseous distension of the stomach - Pt reports that he has had some constipation since taking the narcotics. His last BM was 2 days ago. - Clinically he has decreased bowel sounds and evidence of constipation on CT scan - IVF - Colace BID, Lactulose QID until pt has a BM - Simethicone 125mg Q8H - Protonix 40mg Q12H - Zofran Q4H - Reglan 5mg IV Q8H until the pts bowels are moving and he is tolerating his diet. - Full liquid diet. - Minimize narcotics as this will continue to slow gut motility - Repeat labs in AM - Supportive care - DVT prophylaxis with SCDs (2) Vomiting Status: Acute Plan: - See above. - Another consideration could be cannabinoid induced hyperemesis syndrome with his daily marijuana use. - Marijuana cessation recommended Problem Qualifiers (1) Abdominal pain: Qualified Code: R10.13 - Epigastric pain Delores Hi Apr 28, 2017 16:04
[2017-04-28 16:25] VITALS: BP 138/78; PULSE 89; RESP 18; O2SAT 98
[2017-04-28 16:40] VITALS: BP 189/93; PULSE 56; RESP 18; TEMP 98.2; O2SAT 100
[2017-04-28] MEDS: SODIUM CHLOR 0.9% 1000 ML INJ 1,000 ML IV SCH (16:56)
[2017-04-28] MEDS: ONDANSETRON HCL 4 MG/2 ML VIAL IV PRN (16:57)
[2017-04-28] MEDS: PANTOPRAZOLE SODIUM 40 MG VIAL IV PUSH SCH (16:57)
[2017-04-28] MEDS: SIMETHICONE 125 MG CHEWABLE TAB PO SCH ×3 (17:00→21:19)
[2017-04-28] MEDS: HYDROmorphone HCL PF 1 MG/ML VIAL IV PUSH PRN (17:47)
[2017-04-28 20:03] VITALS: BP 177/78; PULSE 50; RESP 21; TEMP 98; O2SAT 98
[2017-04-28] MEDS: DOCUSATE SODIUM 100 MG CAP PO SCH (21:00)
[2017-04-28] MEDS: METOCLOPRAMIDE HCL 10 MG/2 ML VIAL IV PUSH SCH (21:19)
[2017-04-28 23:58] VITALS: BP_SYST 151; BP_SYST 160; BP_DIAS 78; PULSE 50; PULSE 77; RESP 17; TEMP 98.5; O2SAT 97
[2017-04-29] MEDS: ONDANSETRON HCL 4 MG/2 ML VIAL IV PRN ×2 (00:05→15:52)
[2017-04-29] MEDS: HYDROmorphone HCL PF 1 MG/ML VIAL IV PUSH PRN ×2 (00:06→06:08)
[2017-04-29] MEDS: SODIUM CHLOR 0.9% 1000 ML INJ 1,000 ML IV SCH ×3 (01:00→15:49)
[2017-04-29 04:53] VITALS: BP 105/53; PULSE 77; RESP 18; TEMP 98.8; O2SAT 98
[2017-04-29] MEDS: SIMETHICONE 125 MG CHEWABLE TAB PO SCH ×2 (05:20→13:25)
[2017-04-29] MEDS: METOCLOPRAMIDE HCL 10 MG/2 ML VIAL IV PUSH SCH ×2 (05:21→13:26)
[2017-04-29] MEDS: PANTOPRAZOLE SODIUM 40 MG VIAL IV PUSH SCH (05:21)
[2017-04-29 07:48] VITALS: BP 112/51; PULSE 54; RESP 16; TEMP 98.5; O2SAT 96
--- NOTE | 2017-04-29 08:43 | HHI.PR ---
Subjective Remarks Pt had two large BMs last night and this morning. Overall abd pain is less today but he is using only IV Dilaudid for pain control He had vomiting last night per the pt and his girlfriend at bedside Tolerating some liquids this morning. Objective Vitals Vital Signs Date Time Temp Pulse Resp B/P Pulse Ox O2 Delivery O2 Flow Rate FiO2 04/29/17 07:48 98.5 54 16 112/51 96 04/29/17 04:53 98.8 77 18 105/53 98 04/28/17 23:58 98.5 50 17 160/78 97 04/28/17 20:03 98.0 50 21 177/78 98 04/28/17 16:40 98.2 56 18 189/93 100 04/28/17 16:25 89 18 138/78 98 Room Air 04/28/17 10:57 18 98 Room Air 04/28/17 10:20 18 04/28/17 10:02 98.1 50 20 174/95 100 Room Air 04/28/17 04/28/17 04/29/17 15:00 23:00 07:00 Intake Total 1000 ml Balance 1000 ml Intake Oral 500 ml IV Total 500 ml # Voids 2 # Bowel Movements 1 Result Diagram: 04/28/17 1047 04/28/17 1047 Other Results Laboratory Tests Test 04/28/17 04/28/17 10:47 12:35 White Blood Count 10.5 TH/MM3 Red Blood Count 5.96 MIL/MM3 Hemoglobin 17.5 GM/DL Hematocrit 51.0 % Mean Corpuscular Volume 85.6 FL Mean Corpuscular Hemoglobin 29.4 PG Mean Corpuscular Hemoglobin 34.4 % Concent Red Cell Distribution Width 13.7 % Platelet Count 216 TH/MM3 Mean Platelet Volume 10.0 FL Neutrophils (%) (Auto) 74.5 % Lymphocytes (%) (Auto) 19.9 % Monocytes (%) (Auto) 4.7 % Eosinophils (%) (Auto) 0.6 % Basophils (%) (Auto) 0.3 % Neutrophils # (Auto) 7.8 TH/MM3 Lymphocytes # (Auto) 2.1 TH/MM3 Monocytes # (Auto) 0.5 TH/MM3 Eosinophils # (Auto) 0.1 TH/MM3 Basophils # (Auto) 0.0 TH/MM3 CBC Comment DIFF FINAL Differential Comment Prothrombin Time 11.1 SEC Prothromb Time International 1.0 RATIO Ratio Activated Partial 25.8 SEC Thromboplast Time Sodium Level 140 MEQ/L Potassium Level 3.5 MEQ/L Chloride Level 107 MEQ/L Carbon Dioxide Level 26.3 MEQ/L Anion Gap 7 MEQ/L Blood Urea Nitrogen 10 MG/DL Creatinine 1.13 MG/DL Estimat Glomerular Filtration 80 ML/MIN Rate Random Glucose 117 MG/DL Calcium Level 9.8 MG/DL Total Bilirubin 1.2 MG/DL Aspartate Amino Transf 19 U/L (AST/SGOT) Alanine Aminotransferase 37 U/L (ALT/SGPT) Alkaline Phosphatase 83 U/L Total Protein 8.2 GM/DL Albumin 4.6 GM/DL Lipase 336 U/L Urine Color YELLOW Urine Turbidity CLEAR Urine pH 7.5 Urine Specific [employer] GREATER THAN 1.050 Urine Protein TRACE mg/dL Urine Glucose (UA) NEG mg/dL Urine Ketones 40 mg/dL Urine Occult Blood NEG Urine Nitrite NEG Urine Bilirubin NEG Urine Urobilinogen LESS THAN 2.0 MG/DL Urine Leukocyte Esterase NEG Urine RBC 1 /hpf Urine WBC 2 /hpf Urine Mucus FEW /lpf Microscopic Urinalysis Comment CULT NOT INDICATED Imaging Last Impressions Abdomen/Pelvis CT 04/28/17 1029 Signed Impressions: Service Date/Time: March 12:14 - CONCLUSION: No acute disease. Link Fox MD Objective Remarks General: NAD, AAOx3 Chest: CTA Cardiac: Regular Abd: +BS, soft ND minimal tenderness in epigastric area Ext: No edema A/P Problem List: (1) Abdominal pain Status: Acute Plan: - Pt is a 22 y/o who previously underwent laparoscopic cholecystectomy on and was subsequently admitted from 03/07/17 to 03/11/17 with recurrent abdominal pain associated with nausea or vomiting. Labs at the time of that admission noted elevated LFTs and elevated Lipase. Imaging studies during that admission included CT Abd/pelvis/HIDA scan/MRCP all of which were unrevealing. Pt underwent evaluation with ERCP (03/09/17) performed by Dr. Velásquez, which showed NO obstruction, just sludge. It was suspected that the pt passed biliary stone. Pt developed some post-ERCP pancreatitis but improved clinically. - Around 5 days ago he started having epigastric abdominal pain and poor appetite. He started taking Oxycodone which he had left over from another prescription. This continued over the last few days and he then developed nausea/vomiting and this prompted the patient to go to the ED for further evaluation. - Labs at admission noted improved LFTs, TBili 1.2, AST 19, ALT 37, AlkPhos 83. Lipase was WNL at 336. - CT Abd/pelvis did not indicate any acute issues. It did revealed a fair amount of stool in the rectum and some gaseous distension of the stomach - Pt reports that he has had some constipation since taking the narcotics. His last BM was 2 days prior to admission. - Clinically he has decreased bowel sounds and evidence of constipation on CT scan at admission. - Pt had two BMs last night and this morning and symptomatically improved today. - MINIMIZE NARCOTICS as this is likely contributing to his constipation. - Colace BID - Stop Lactulose this morning. - Simethicone 125mg Q8H - Protonix 40mg po Q12H - Zofran Q4H - Reglan 5mg IV Q8H until the pts bowels are moving and he is tolerating his diet. - Full liquid diet this morning and if tolerating advance to regular diet for lunch. - Await repeat labs this morning. - Supportive care - DVT prophylaxis with SCDs (2) Vomiting Status: Acute Plan: - See above. - Marijuana cessation recommended Assessment and Plan Patient examined. Assessment and plan formulated with Delores Hi PA-C. I agree with the above. feels better after laxatives and simethicone for stool/gas. no evidence radiographically or lab for biliary obstruction or pancreatitis. advance diet and d/c home if tolerating. Problem Qualifiers (1) Abdominal pain: Qualified Code: R10.13 - Epigastric pain Delores Hi Apr 29, 2017 08:43 Kodak Camarillo MD Apr 29, 2017 12:21
--- NOTE | 2017-04-29 08:45 | HHI.DCPOC ---
Discharge Care Plan Diagnosis: (1) Abdominal pain (2) Vomiting Goals to Promote Your Health * To prevent worsening of your condition and complications * To maintain your health at the optimal level Directions to Meet Your Goals Take your medications as prescribed Follow your dietary instruction Follow activity as directed Keep your appointments as scheduled Take your immunizations and boosters as scheduled If your symptoms worsen call your PCP, if no PCP go to Urgent Care Center or Emergency Room Smoking is Dangerous to Your Health. Avoid second hand smoke Call the 24-hour hour crisis hotline for domestic abuse at Delores Hi Apr 29, 2017 08:45
[2017-04-29] MEDS ORDERED: PANTOPRAZOLE SOD 40 MG DELAYED RELEASE TAB PO SCH (09:00)
[2017-04-29 09:37] LABS: AUTOMATED NEUTROPHIL # 9.2 TH/MM3 (1.8-7.7); BASOPHIL % 0.1 % (0.0-2.0); EOSINOPHIL # 0.1 TH/MM3 (0-0.4); EOSINOPHIL % 0.4 % (0.0-4.0); HEMATOCRIT 45.6 % (39.0-51.0); HEMO FLAGS DIFF FINAL; LYMPH % 27.3 % (9.0-44.0); MEAN CELL VOLUME 86.4 FL (80.0-100.0); MEAN CORPUSCULAR HEMOGLOBIN 28.7 PG (27.0-34.0); MEAN CORPUSCULAR HGB CONC 33.2 % (32.0-36.0); MONO % 9.2 % (0.0-8.0); PLATELET COUNT 201 TH/MM3 (150-450); RED BLOOD COUNT 5.27 MIL/MM3 (4.50-5.90); RED CELL DISTRIBUTION WIDTH 13.6 % (11.6-17.2); WHITE BLOOD COUNT 14.7 TH/MM3 (4.0-11.0)
[2017-04-29] MEDS: DOCUSATE SODIUM 100 MG CAP PO SCH (09:50)
[2017-04-29 10:21] LABS: ALKALINE PHOSPHATASE 68 U/L (45-117); ALT (GPT) 29 U/L (12-78); ANION GAP 8 MEQ/L (5-15); AST (GOT) 13 U/L (15-37); BICARBONATE 27.3 MEQ/L (21.0-32.0); BLOOD UREA NITROGEN 10 MG/DL (7-18); CHLORIDE 105 MEQ/L (98-107); GLOMERULAR FILTRATION RATE 105 ML/MIN (>89); POTASSIUM 3.5 MEQ/L (3.5-5.1); SODIUM (NA) 140 MEQ/L (136-145); TOTAL BILIRUBIN ADULT 1.2 MG/DL (0.2-1.0)
[2017-04-29 11:25] VITALS: BP 121/72; PULSE 55; RESP 17; TEMP 98.4; O2SAT 98
[2017-04-29] MEDS ORDERED: traMADol HCL 50 MG TAB PO PRN (15:15)
== END 2017-04-29 17:53 | disposition home or self-care (01) ==
LOC: NEPC 10:00 → NEDA 14:55 → NEPGCP 16:37
PROVIDERS: ADMIT Hospitalist; ATTEND Hospitalist
DX: R10.13 Epigastric pain (principal); R11.2 Nausea with vomiting, unspecified; R63.0 Anorexia; K59.03 Drug induced constipation; R00.1 Bradycardia, unspecified; T40.605A Adverse effect of unspecified narcotics, initial encounter; F12.90 Cannabis use, unspecified, uncomplicated; F41.9 Anxiety disorder, unspecified; Z95.0 Presence of cardiac pacemaker
CPT/HCPCS: 74177; 80053; 81001; 83690; 85025; 85610; 85730; 93005; 96374; 96375; 96376; 99285; C9113; G0378; J1170; J2270; J2405; J2765; J7030; Q9967

== ENCOUNTER 2018-01-31 14:11 | Observation (INO) | payer SELFPAY ==
[~2018-01-31] VITALS: Ht 177.8 cm; Wt 104.5 kg
[~2018-01-31 14:11] MED LIST changes: -NORC5TAB PO; +TYLE325T PO
[2018-01-31 14:20] VITALS: BP 182/79; PULSE 55; RESP 20; TEMP 97.5; O2SAT 100
[2018-01-31] MEDS ORDERED: SODIUM CHLOR 0.9% 1000 ML INJ 1,000 ML IV SCH (16:02)
[2018-01-31] MEDS ORDERED: CARA1TAB6 PO (16:06)
--- NOTE | 2018-01-31 16:08 | PD ---
HPI Chief Complaint: Abdominal Pain Time Seen by Provider: 15:58 Travel History International Travel<30 days: No Contact w/Intl Traveler<30days: No Traveled to known affect area: No History of Present Illness HPI 22-year-old male presents emergency department with 4 day history of intractable vomiting nominal pain. Patient has history of cholecystitis with gallbladder removal a little over a year ago. He was admitted in February 2017, an ERCP was performed showing no obvious blockage but possible recently passed stone. He was shown to have pancreatitis at that time secondary to biliary obstruction. Patient was again admitted in March 2017 for similar complaints. He has been followed by [place] [employer], Dr. Mullins. He states no inciting event other than it just came on 4 days ago and is continued. His pain is 9 out of 10. He is noted to have hiccups. His nausea is severe. He denies fever or chills. He denies urinary symptoms. No shortness of breath or chest pain. He is allergic to sulfa, naproxen, and penicillin. PFSH Past Medical History Blood Disorders: No Anxiety: Yes Depression: No Cancer: No Cardiovascular Problems: No Endocrine: No Genitourinary: No Immune Disorder: No Musculoskeletal: No Neurologic: No Psychiatric: Yes Reproductive: No Respiratory: No Pancreatitis: Yes Past Surgical History Abdominal Surgery: Yes Cholecystectomy: Yes Tonsillectomy: Yes Social History Alcohol Use: No Tobacco Use: No Substance Use: Yes (thc) Allergies-Medications (Allergen,Severity, Reaction): Coded Allergies: penicillin G (Unverified Allergy, Severe, 01/31/18) Sulfa (Sulfonamide Antibiotics) (Unverified Allergy, Unknown, 01/31/18) naproxen (Unverified Adverse Reaction, Severe, Nausea/Vomiting, 01/31/18) Reported Meds & Prescriptions Reported Meds & Active Scripts Active Reported Carafate (Sucralfate) 1 Gram Tab 1 Gm PO DAILY On empty stomach Review of Systems Except as stated in HPI: all other systems reviewed are Neg General / Constitutional: Positive: Chills, No: Fever Eyes: No: Visual changes HENT: No: Headaches Cardiovascular: No: Chest Pain or Discomfort Respiratory: No: Shortness of Breath Gastrointestinal: Positive: Nausea, Vomiting, Abdominal Pain, No: Diarrhea Genitourinary: Positive: Flank Pain, No: Urgency, Frequency, Dysuria Musculoskeletal: No: Pain Skin: No Rash Neurologic: No: Weakness Psychiatric: No: Depression Endocrine: No: Polydipsia Hematologic/Lymphatic: No: Easy Bruising Physical Exam Narrative GENERAL: Patient appears moderately ill. SKIN: Warm and dry. Decreased pallor, mild diaphoresis. Normal turgor HEAD: Atraumatic. Normocephalic. EYES: Pupils equal and round. No scleral icterus. No injection or drainage. ENT: No nasal bleeding or discharge. Mucous membranes pink and moist. Pharynx is clear. Airways patent. NECK: Trachea midline. Supple nontender per CARDIOVASCULAR: Regular rate and rhythm. RESPIRATORY: No accessory muscle use. Clear to auscultation. Breath sounds equal bilaterally. GASTROINTESTINAL: Abdomen soft, moderate right upper quadrant tenderness with guarding, nondistended. Mild bilateral CVA tenderness with percussion. Hepatic and splenic margins not palpable. MUSCULOSKELETAL: Extremities without clubbing, cyanosis, or edema. No obvious deformities. NEUROLOGICAL: Awake and alert. No obvious cranial nerve deficits. Motor grossly within normal limits. Five out of 5 muscle strength in the arms and legs. Normal speech. PSYCHIATRIC: Appropriate mood and affect; insight and judgment normal. Data Data Last Documented VS Vital Signs Date Time Temp Pulse Resp B/P (MAP) Pulse Ox O2 Delivery O2 Flow Rate FiO2 01/31/18 17:43 55 16 187/97 (127) 97 Room Air 01/31/18 14:20 97.5 Orders Orders Complete Blood Count With Diff (01/31/18 14:22) Comprehensive Metabolic Panel (01/31/18 14:22) Lipase (01/31/18 14:22) Urinalysis - C+S If Indicated (01/31/18 16:02) Iv Access Insert/Monitor (01/31/18 16:02) Ecg Monitoring (01/31/18 16:02) Oximetry (01/31/18 16:02) NPO (01/31/18 16:02) Morphine Inj (Morphine Inj) (01/31/18 16:15) Ondansetron Inj (Zofran Inj) (01/31/18 16:15) Sodium Chlor 0.9% 1000 Ml Inj (Ns 1000 M (01/31/18 16:02) Sodium Chloride 0.9% Flush (Ns Flush) (01/31/18 16:15) Ketorolac Inj (Toradol Inj) (01/31/18 16:15) Metoclopramide Inj (Reglan Inj) (01/31/18 16:15) Lactic Acid (01/31/18 16:08) Hydromorphone Pf Inj (Dilaudid Pf Inj) (01/31/18 18:30) Sodium Chlor 0.9% 1000 Ml Inj (Ns 1000 M (01/31/18 18:30) Hydromorphone Pf Inj (Dilaudid Pf Inj) (01/31/18 18:45) Labs Laboratory Tests Test 01/31/18 16:00 01/31/18 17:15 White Blood Count 13.2 TH/MM3 Red Blood Count 6.10 MIL/MM3 Hemoglobin 18.4 GM/DL Hematocrit 52.0 % Mean Corpuscular Volume 85.2 FL Mean Corpuscular Hemoglobin 30.1 PG Mean Corpuscular Hemoglobin Concent 35.3 % Red Cell Distribution Width 13.3 % Platelet Count 239 TH/MM3 Mean Platelet Volume 9.2 FL Neutrophils (%) (Auto) 83.2 % Lymphocytes (%) (Auto) 13.1 % Monocytes (%) (Auto) 3.3 % Eosinophils (%) (Auto) 0.1 % Basophils (%) (Auto) 0.3 % Neutrophils # (Auto) 11.0 TH/MM3 Lymphocytes # (Auto) 1.7 TH/MM3 Monocytes # (Auto) 0.4 TH/MM3 Eosinophils # (Auto) 0.0 TH/MM3 Basophils # (Auto) 0.0 TH/MM3 CBC Comment DIFF FINAL Differential Comment Blood Urea Nitrogen 13 MG/DL Creatinine 1.17 MG/DL Random Glucose 120 MG/DL Total Protein 9.2 GM/DL Albumin 4.8 GM/DL Calcium Level 9.5 MG/DL Alkaline Phosphatase 88 U/L Aspartate Amino Transf (AST/SGOT) 27 U/L Alanine Aminotransferase (ALT/SGPT) 44 U/L Total Bilirubin 1.0 MG/DL Sodium Level 141 MEQ/L Potassium Level 4.4 MEQ/L Chloride Level 106 MEQ/L Carbon Dioxide Level 27.1 MEQ/L Anion Gap 8 MEQ/L Estimat Glomerular Filtration Rate 77 ML/MIN Lipase 245 U/L Lactic Acid Level 2.5 mmol/L MDM Medical Decision Making Medical Screen Exam Complete: Yes Emergency Medical Condition: Yes Medical Record Reviewed: Yes Differential Diagnosis Intractable vomiting. Biliary colic. Pancreatitis. Biliary obstruction. Electrolyte imbalance. UTI. Narrative Course Patient appears ill but medically stable at time of exam. Labs ordered including CBC, CMP, lipase, lactic acid, and urinalysis. IV access is obtained the patient is given 4 mg morphine IV, 4 mg Zofran IV, and 10 mg Reglan IV. Patient is given 1000 mL normal saline bolus. Chest x-ray is ordered. CBC shows leukocytosis of 13.2. Hemoglobin is elevated at 18.4 and hematocrit of 52.0 suggesting hemoconcentration. CMP fairly unremarkable, with a GFR 77, random glucose 120, AST and ALT are normal. Bilirubin is normal. Lipase is 245. Electrolytes are normal, however his lactic acid is 2.5 Patient was given an additional 1 mg Dilaudid for pain control. Patient is given additional liter of normal saline. Patient is discussed with Dr. Whittaker and labs are reviewed. I feel it prudent to admit the patient for intractable vomiting with dehydration and elevated lactic acid and for pain control overnight in the observation unit. 18 1840 hrs. call was placed to the hospitalist for admission. Diagnosis Primary Impression: Intractable vomiting with nausea Qualified Codes: R11.2 - Nausea with vomiting, unspecified Additional Impression: Abdominal pain Qualified Codes: R10.10 - Upper abdominal pain, unspecified Admitting Information Admitting Physician Requests: Observation Condition: Stable Chandana Lechuga Jan 31, 2018 16:08
[2018-01-31] MEDS ORDERED: KETOROLAC TROMETHAMINE 30 MG/ML (IVP) VIAL IVP ONE (16:15)
[2018-01-31] MEDS ORDERED: METOCLOPRAMIDE HCL 10 MG/2 ML VIAL IV PUSH ONE (16:15)
[2018-01-31] MEDS ORDERED: ONDANSETRON HCL 4 MG/2 ML VIAL IVP ONE (16:15)
[2018-01-31] MEDS ORDERED: MORPHINE SULFATE 4 MG/ML INJ IV PUSH ONE ×2 (16:15→21:30)
[2018-01-31 16:50] LABS: BASOPHIL % 0.3 % (0.0-2.0); EOSINOPHIL % 0.1 % (0.0-4.0); HEMOGLOBIN 18.4 GM/DL (13.0-17.0); LYMPH % 13.1 % (9.0-44.0); LYMPHOCYTE # 1.7 TH/MM3 (1.0-4.8); MEAN CELL VOLUME 85.2 FL (80.0-100.0); MEAN CORPUSCULAR HEMOGLOBIN 30.1 PG (27.0-34.0); MEAN CORPUSCULAR HGB CONC 35.3 % (32.0-36.0); MEAN PLATELET VOLUME 9.2 FL (7.0-11.0); MONO % 3.3 % (0.0-8.0); MONOCYTE # 0.4 TH/MM3 (0-0.9); NEUT % 83.2 % (16.0-70.0); PLATELET COUNT 239 TH/MM3 (150-450); RED CELL DISTRIBUTION WIDTH 13.3 % (11.6-17.2); WHITE BLOOD COUNT 13.2 TH/MM3 (4.0-11.0)
[2018-01-31 17:16] LABS: ALKALINE PHOSPHATASE 88 U/L (45-117); TOTAL PROTEIN 9.2 GM/DL (6.4-8.2)
[2018-01-31 17:23] LABS: ALBUMIN 4.8 GM/DL (3.4-5.0); ALT (GPT) 44 U/L (12-78); AST (GOT) 27 U/L (15-37); BICARBONATE 27.1 MEQ/L (21.0-32.0); BLOOD UREA NITROGEN 13 MG/DL (7-18); CALCIUM 9.5 MG/DL (8.5-10.1); CHLORIDE 106 MEQ/L (98-107); CREATININE 1.17 MG/DL (0.60-1.30); GLOMERULAR FILTRATION RATE 77 ML/MIN (>89); GLUCOSE,RANDOM 120 MG/DL (74-106); SODIUM (NA) 141 MEQ/L (136-145)
[2018-01-31 17:43] VITALS: BP 187/97; PULSE 55; RESP 16; O2SAT 97
[2018-01-31] MEDS ORDERED: SODIUM CHLOR 0.9% 1000 ML INJ 1,000 ML IV ONE ×2 (18:30→19:30)
[2018-01-31] MEDS ORDERED: HYDROmorphone HCL PF 1 MG/ML VIAL IV PUSH ONE (18:30)
[2018-01-31] MEDS ORDERED: HYDROmorphone HCL PF 2 MG/ML VIAL IV ONE (18:45)
[2018-01-31 19:01] LABS: BILIRUBIN, URINE NEG (NEG); BLOOD, URINE NEG (NEG); GLUCOSE,URINE NEG (NEG); KETONE, URINE 80 mg/dL (NEG); MUCUS URINE FEW /lpf (OCC); NITRITE,URINE NEG (NEG); PH, URINE 6.5 (5.0-8.5); URINE COLOR YELLOW (YELLW/STRAW); URINE LEUKOCYTE ESTERASE NEG (NEG)
--- NOTE | 2018-01-31 19:26 | PD ---
Physical Exam Date Seen by Provider: Jan 31, 2018 Time Seen by Provider: 19:25 Narrative For full history and physical examination please see previous providers note. I assumed care of this patient change of shift. Data Data Last Documented VS Vital Signs Date Time Temp Pulse Resp B/P (MAP) Pulse Ox O2 Delivery O2 Flow Rate FiO2 01/31/18 19:28 54 20 187/113 (137) 100 Room Air 01/31/18 14:20 97.5 Orders Orders Complete Blood Count With Diff (01/31/18 14:22) Comprehensive Metabolic Panel (01/31/18 14:22) Lipase (01/31/18 14:22) Urinalysis - C+S If Indicated (01/31/18 16:02) Iv Access Insert/Monitor (01/31/18 16:02) Ecg Monitoring (01/31/18 16:02) Oximetry (01/31/18 16:02) NPO (01/31/18 16:02) Morphine Inj (Morphine Inj) (01/31/18 16:15) Ondansetron Inj (Zofran Inj) (01/31/18 16:15) Sodium Chlor 0.9% 1000 Ml Inj (Ns 1000 M (01/31/18 16:02) Sodium Chloride 0.9% Flush (Ns Flush) (01/31/18 16:15) Ketorolac Inj (Toradol Inj) (01/31/18 16:15) Metoclopramide Inj (Reglan Inj) (01/31/18 16:15) Lactic Acid (01/31/18 16:08) Hydromorphone Pf Inj (Dilaudid Pf Inj) (01/31/18 18:30) Sodium Chlor 0.9% 1000 Ml Inj (Ns 1000 M (01/31/18 18:30) Hydromorphone Pf Inj (Dilaudid Pf Inj) (01/31/18 18:45) Sodium Chlor 0.9% 1000 Ml Inj (Ns 1000 M (01/31/18 19:30) Prochlorperazine Inj (Compazine Inj) (01/31/18 20:15) Admit Order (Ed Use Only) (01/31/18 20:24) Labs Laboratory Tests Test 01/31/18 16:00 01/31/18 17:15 01/31/18 18:25 White Blood Count 13.2 TH/MM3 Red Blood Count 6.10 MIL/MM3 Hemoglobin 18.4 GM/DL Hematocrit 52.0 % Mean Corpuscular Volume 85.2 FL Mean Corpuscular Hemoglobin 30.1 PG Mean Corpuscular Hemoglobin Concent 35.3 % Red Cell Distribution Width 13.3 % Platelet Count 239 TH/MM3 Mean Platelet Volume 9.2 FL Neutrophils (%) (Auto) 83.2 % Lymphocytes (%) (Auto) 13.1 % Monocytes (%) (Auto) 3.3 % Eosinophils (%) (Auto) 0.1 % Basophils (%) (Auto) 0.3 % Neutrophils # (Auto) 11.0 TH/MM3 Lymphocytes # (Auto) 1.7 TH/MM3 Monocytes # (Auto) 0.4 TH/MM3 Eosinophils # (Auto) 0.0 TH/MM3 Basophils # (Auto) 0.0 TH/MM3 CBC Comment DIFF FINAL Differential Comment Blood Urea Nitrogen 13 MG/DL Creatinine 1.17 MG/DL Random Glucose 120 MG/DL Total Protein 9.2 GM/DL Albumin 4.8 GM/DL Calcium Level 9.5 MG/DL Alkaline Phosphatase 88 U/L Aspartate Amino Transf (AST/SGOT) 27 U/L Alanine Aminotransferase (ALT/SGPT) 44 U/L Total Bilirubin 1.0 MG/DL Sodium Level 141 MEQ/L Potassium Level 4.4 MEQ/L Chloride Level 106 MEQ/L Carbon Dioxide Level 27.1 MEQ/L Anion Gap 8 MEQ/L Estimat Glomerular Filtration Rate 77 ML/MIN Lipase 245 U/L Lactic Acid Level 2.5 mmol/L Urine Color YELLOW Urine Turbidity CLEAR Urine pH 6.5 Urine Specific [place] 1.031 Urine Protein 30 mg/dL Urine Glucose (UA) NEG mg/dL Urine Ketones 80 mg/dL Urine Occult Blood NEG Urine Nitrite NEG Urine Bilirubin NEG Urine Urobilinogen LESS THAN 2.0 MG/DL Urine Leukocyte Esterase NEG Urine RBC 1 /hpf Urine WBC 2 /hpf Urine Mucus FEW /lpf Microscopic Urinalysis Comment CULT NOT INDICATED MDM Medical Record Reviewed: Yes Supervised Visit with IGNACIO: No Interpretation(s) Vital Signs Date Time Temp Pulse Resp B/P (MAP) Pulse Ox O2 Delivery O2 Flow Rate FiO2 01/31/18 17:43 55 16 187/97 (127) 97 Room Air 01/31/18 14:20 97.5 55 20 182/79 (113) 100 Laboratory Tests Test 01/31/18 16:00 01/31/18 17:15 01/31/18 18:25 White Blood Count 13.2 TH/MM3 Red Blood Count 6.10 MIL/MM3 Hemoglobin 18.4 GM/DL Hematocrit 52.0 % Mean Corpuscular Volume 85.2 FL Mean Corpuscular Hemoglobin 30.1 PG Mean Corpuscular Hemoglobin Concent 35.3 % Red Cell Distribution Width 13.3 % Platelet Count 239 TH/MM3 Mean Platelet Volume 9.2 FL Neutrophils (%) (Auto) 83.2 % Lymphocytes (%) (Auto) 13.1 % Monocytes (%) (Auto) 3.3 % Eosinophils (%) (Auto) 0.1 % Basophils (%) (Auto) 0.3 % Neutrophils # (Auto) 11.0 TH/MM3 Lymphocytes # (Auto) 1.7 TH/MM3 Monocytes # (Auto) 0.4 TH/MM3 Eosinophils # (Auto) 0.0 TH/MM3 Basophils # (Auto) 0.0 TH/MM3 CBC Comment DIFF FINAL Differential Comment Blood Urea Nitrogen 13 MG/DL Creatinine 1.17 MG/DL Random Glucose 120 MG/DL Total Protein 9.2 GM/DL Albumin 4.8 GM/DL Calcium Level 9.5 MG/DL Alkaline Phosphatase 88 U/L Aspartate Amino Transf (AST/SGOT) 27 U/L Alanine Aminotransferase (ALT/SGPT) 44 U/L Total Bilirubin 1.0 MG/DL Sodium Level 141 MEQ/L Potassium Level 4.4 MEQ/L Chloride Level 106 MEQ/L Carbon Dioxide Level 27.1 MEQ/L Anion Gap 8 MEQ/L Estimat Glomerular Filtration Rate 77 ML/MIN Lipase 245 U/L Lactic Acid Level 2.5 mmol/L Urine Color YELLOW Urine Turbidity CLEAR Urine pH 6.5 Urine Specific [place] 1.031 Urine Protein 30 mg/dL Urine Glucose (UA) NEG mg/dL Urine Ketones 80 mg/dL Urine Occult Blood NEG Urine Nitrite NEG Urine Bilirubin NEG Urine Urobilinogen LESS THAN 2.0 MG/DL Urine Leukocyte Esterase NEG Urine RBC 1 /hpf Urine WBC 2 /hpf Urine Mucus FEW /lpf Microscopic Urinalysis Comment CULT NOT INDICATED Narrative Course For full H&P please see previous providers note. Patient presented with intractable nausea and vomiting. Initially we were going to admit under observation for that reason however patient is currently requesting oral fluids. Patient will be given a oral fluid challenge. If he can maintain these fluids he will be discharged home. Patient was reassessed after oral fluid challenge. Patient reports that he feels nauseous and as if he is going to vomit. Compazine ordered, [facility] paged for admission. Dr. Bryson accepted admission. Admit orders placed. Patient is agreeable to stay. Diagnosis Primary Impression: Intractable vomiting with nausea Qualified Codes: R11.2 - Nausea with vomiting, unspecified Additional Impressions: Abdominal pain Qualified Codes: R10.10 - Upper abdominal pain, unspecified Lactic acidosis Admitting Information Admitting Physician Requests: Observation Condition: Stable Selene Sin [facility] Jan 31, 2018 19:26
[2018-01-31 19:28] VITALS: BP 187/113; PULSE 54; RESP 20; O2SAT 100
[2018-01-31] MEDS ORDERED: PROCHLORPERAZINE INJ 10 MG/2 ML VIAL IV PUSH ONE (20:15)
[2018-01-31] MEDS ORDERED: ONDANSETRON HCL 4 MG/2 ML VIAL IV PUSH ONE (21:30)
[2018-01-31 23:10] VITALS: BP 116/68; PULSE 72; RESP 16; TEMP 97.8; O2SAT 99
[2018-01-31] MEDS ORDERED: ACETAMINOPHEN 325 MG TAB PO PRN (23:15)
[2018-01-31] MEDS ORDERED: NALOXONE HCL 0.4 MG/ML AMP IV PUSH PRN (23:15)
[2018-01-31] MEDS ORDERED: SODIUM CHLORIDE 0.9% FLUSH 10 ML FLUSH IV FLUSH PRN (23:15)
[2018-01-31] MEDS ORDERED: PROCHLORPERAZINE 25 MG SUPP RECTAL PRN (23:15)
[2018-01-31] MEDS: SODIUM CHLOR 0.9% 1000 ML INJ 1,000 ML IV SCH (23:18)
[2018-01-31] MEDS: ONDANSETRON HCL 4 MG/2 ML VIAL IVP PRN (23:36)
[2018-02-01] MEDS ORDERED: ALUMINUM/MAGNESIUM/SIMETH 30 ML CUP PO ONE (01:45)
[2018-02-01] MEDS ORDERED: MORPHINE SULFATE 2 MG/ML SYRINGE IV PUSH ONE (01:45)
[2018-02-01] MEDS: SODIUM CHLORIDE 0.9% FLUSH 10 ML FLUSH IV FLUSH PRN ×2 (01:54→06:11)
[2018-02-01 02:07] VITALS: BP 166/95; PULSE 56; RESP 15; TEMP 99.9; O2SAT 99
--- NOTE | 2018-02-01 04:16 | HHI.HP ---
[facility] Service [facility] Primary Care Physician No Primary Care Physician Admission Diagnosis Intractable nausea vomiting, lactic acidosis Diagnoses: Travel History International Travel<30 Days: No Contact w/Intl Traveler <30 Da: No Traveled to Known Affected Are: No History of Present Illness 22-year-old male presents to the emergency department with nausea/vomiting 24 hours. The patient reports accompanying fevers and chills and epigastric and upper quadrant abdominal pain. The patient denies any diarrhea. He states he has 2 of these episodes per year for approximately the past 2 years. In 2017 he had a cholecystectomy. The patient reports that he has thrown up several dozen times over the past day. He states he is unable to keep anything down. He continues to complain of abdominal pain, worse with palpation. He denies any chest pain or shortness of breath. No weakness. No dysuria. Review of Systems Except as stated in HPI: all other systems reviewed are Neg Past Family Social History Past Medical History None Past Surgical History Cholecystectomy Colonoscopy Reported Medications Reported Meds & Active Scripts Active Reported Carafate (Sucralfate) 1 Gram Tab 1 Gm PO DAILY On empty stomach Allergies: Coded Allergies: penicillin G (Unverified Allergy, Severe, 01/31/18) Sulfa (Sulfonamide Antibiotics) (Unverified Allergy, Unknown, 01/31/18) naproxen (Unverified Adverse Reaction, Severe, Nausea/Vomiting, 01/31/18) Family History Mother with diabetes mellitus Social History Smokes approximately one pack per day. Occasional alcohol. Positive marijuana. Denies all other illicit drugs. Physical Exam Vital Signs Vital Signs Date Time Temp Pulse Resp B/P (MAP) Pulse Ox O2 Delivery O2 Flow Rate FiO2 02/01/18 02:07 99.9 56 15 166/95 (118) 99 02/01/18 01:59 15 01/31/18 23:10 97.8 72 16 116/68 (84) 99 01/31/18 19:28 54 20 187/113 (137) 100 Room Air 01/31/18 17:43 55 16 187/97 (127) 97 Room Air 01/31/18 14:20 97.5 55 20 182/79 (123) 100 Physical Exam GENERAL: male lying in bed SKIN: No rashes, ecchymoses or lesions. Cool and dry. HEAD: Atraumatic. Normocephalic. No temporal or scalp tenderness. EYES: Pupils equal round and reactive. Extraocular motions intact. No scleral icterus. No injection or drainage. ENT: Nose without bleeding, purulent drainage or septal hematoma. Throat without erythema, tonsillar hypertrophy or exudate. Uvula midline. Airway patent. NECK: Trachea midline. No JVD or lymphadenopathy. Supple, nontender, no meningeal signs. CARDIOVASCULAR: Regular rate and rhythm without murmurs, gallops, or rubs. RESPIRATORY: Clear to auscultation. Breath sounds equal bilaterally. No wheezes , rales, or rhonchi. GASTROINTESTINAL: Abdomen soft, tender to palpation in the upper quadrants, nondistended. No hepato-splenomegaly, or palpable masses. No guarding. MUSCULOSKELETAL: Extremities without clubbing, cyanosis, or edema. No joint tenderness, effusion, or edema noted. No calf tenderness. NEUROLOGICAL: Awake and alert. Cranial nerves II through XII intact. Motor and sensory grossly within normal limits. Normal speech. Laboratory Laboratory Tests Test 01/31/18 16:00 01/31/18 17:15 01/31/18 18:25 02/01/18 00:40 White Blood Count 13.2 Red Blood Count 6.10 Hemoglobin 18.4 Hematocrit 52.0 Mean Corpuscular Volume 85.2 Mean Corpuscular Hemoglobin 30.1 Mean Corpuscular Hemoglobin Concent 35.3 Red Cell Distribution Width 13.3 Platelet Count 239 Mean Platelet Volume 9.2 Neutrophils (%) (Auto) 83.2 Lymphocytes (%) (Auto) 13.1 Monocytes (%) (Auto) 3.3 Eosinophils (%) (Auto) 0.1 Basophils (%) (Auto) 0.3 Neutrophils # (Auto) 11.0 Lymphocytes # (Auto) 1.7 Monocytes # (Auto) 0.4 Eosinophils # (Auto) 0.0 Basophils # (Auto) 0.0 CBC Comment DIFF FINAL Differential Comment Blood Urea Nitrogen 13 Creatinine 1.17 Random Glucose 120 Total Protein 9.2 Albumin 4.8 Calcium Level 9.5 Alkaline Phosphatase 88 Aspartate Amino Transf (AST/SGOT) 27 Alanine Aminotransferase (ALT/SGPT) 44 Total Bilirubin 1.0 Sodium Level 141 Potassium Level 4.4 Chloride Level 106 Carbon Dioxide Level 27.1 Anion Gap 8 Estimat Glomerular Filtration Rate 77 Lipase 245 Lactic Acid Level 2.5 1.2 Urine Color YELLOW Urine Turbidity CLEAR Urine pH 6.5 Urine Specific [place] 1.031 Urine Protein 30 Urine Glucose (UA) NEG Urine Ketones 80 Urine Occult Blood NEG Urine Nitrite NEG Urine Bilirubin NEG Urine Urobilinogen LESS THAN 2.0 Urine Leukocyte Esterase NEG Urine RBC 1 Urine WBC 2 Urine Mucus FEW Microscopic Urinalysis Comment CULT NOT INDICATED Result Diagram: 01/31/18 1600 01/31/18 1600 [place] VTE Risk Assessment Caprini VTE Risk Assessment: No/Low Risk (score <= 1) Caprini Risk Assessment Model Point Value = 1 Point Value = 2 Point Value = 3 Point Value = 5 Age 41-60 Minor surgery BMI > 25 kg/m2 Swollen legs Varicose veins or History of unexplained or recurrent spontaneous Oral contraceptives or hormone replacement Sepsis (< 1 month) Serious lung disease, including pneumonia (< 1 month) Abnormal pulmonary function Acute myocardial infarction Congestive heart failure (< 1 month) History of inflammatory bowel disease Medical patient at bed rest Age 61-74 Arthroscopic surgery Major open surgery (> 45 min) Laparoscopic surgery (> 45 min) Malignancy Confined to bed (> 72 hours) Immobilizing plaster cast Central venous access Age >= 75 History of VTE Family history of VTE Factor V Leiden Prothrombin [id number] Lupus anticoagulant Anticardiolipin antibodies Elevated serum homocysteine Heparin-induced thrombocytopenia Other congenital or acquired thrombophilia Stroke (< 1 month) Elective arthroplasty Hip, pelvis, or leg fracture Acute spinal cord injury (< 1 month) Prophylaxis Regimen Total Risk Factor Score Risk Level Prophylaxis Regimen 0-1 Low Early ambulation 2 Moderate Order ONE of the following: *Sequential Compression Device (SCD) *Heparin 5000 units SQ BID 3-4 Higher Order ONE of the following medications: *Heparin 5000 units SQ TID *Enoxaparin/Lovenox 40 mg SQ daily (WT < 150 kg, CrCl > 30 mL/min) *Enoxaparin/Lovenox 30 mg SQ daily (WT < 150 kg, CrCl > 10-29 mL/min) *Enoxaparin/Lovenox 30 mg SQ BID (WT < 150 kg, CrCl > 30 mL/min) AND/OR *Sequential Compression Device (SCD) 5 or more Highest Order ONE of the following medications: *Heparin 5000 units SQ TID (Preferred with Epidurals) *Enoxaparin/Lovenox 40 mg SQ daily (WT < 150 kg, CrCl > 30 mL/min) *Enoxaparin/Lovenox 30 mg SQ daily (WT < 150 kg, CrCl > 10-29 mL/min) *Enoxaparin/Lovenox 30 mg SQ BID (WT < 150 kg, CrCl > 30 mL/min) AND *Sequential Compression Device (SCD) Assessment and Plan Assessment and Plan Assessment/plan: 1. Intractable abdominal pain Patient continues to complain of abdominal pain despite several doses of narcotics Unclear etiology, CT of the abdomen/pelvis pending LFTs within normal limits 2. Nausea/vomiting Plan as above Clear liquid by mouth challenge Zofran May be from marijuana use, cessation counseling provided FEN Clear liquid diet as tolerated Electrolytes: monitor and replete prn NS at 100 cc/hr Delores Bryson MD Feb 01, 2018 04:16
[2018-02-01 05:29] VITALS: BP 124/69; PULSE 72; RESP 16; TEMP 98.1; O2SAT 96
--- NOTE | 2018-02-01 05:31 | RADRPT ---
EXAM DATE/TIME: 02/01/2018 04:51 [place] COMPARISON: No previous studies available for comparison. INDICATIONS : Upper abdominal pain and vomting. ORAL CONTRAST: No oral contrast ingested. RADIATION DOSE: 8.10 CTDIvol (mGy) MEDICAL HISTORY : Gastroesophageal reflux disease. Pancreatitis. SURGICAL HISTORY : Cholecystectomy. ENCOUNTER: Initial ACUITY: 1 day PAIN SCALE: 5/10 LOCATION: Bilateral upper quadrant TECHNIQUE: Volumetric scanning of the abdomen and pelvis was performed. Using automated exposure control and ad justment of the mA and/or kV according to patient size, radiation dose was kept as low as reasonably achievable to obtain optimal diagnostic quality images. DICOM format image data is available electro nically for review and comparison. FINDINGS: LOWER LUNGS: The visualized lower lungs are clear. LIVER: Homogeneous density without lesion. There is no dilation of the biliary tree. Gallbladder surgically absent. SPLEEN: Normal size without lesion. PANCREAS: Within normal limits. KIDNEYS: Normal in size and shape. There is no mass, stone, or hydronephrosis. ADRENAL GLANDS: Within normal limits. VASCULAR: There is no aortic aneurysm. BOWEL/MESENTERY: The stomach, small bowel, and colon demonstrate no acute abnormality. There is no free intraperitone al air or fluid. ABDOMINAL WALL: Within normal limits. RETROPERITONEUM: There is no lymphadenopathy. BLADDER: No wall thickening or mass. REPRODUCTIVE: Within normal limits. INGUINAL: There is no lymphadenopathy or hernia. MUSCULOSKELETAL: Within normal limits for patient age. CONCLUSION: No acute CT findings in the abdomen or pelvis Omero Candelaria MD on February 01, 2018 at 5:27 Board Certified Radiologist. This report was verified electronically.
[2018-02-01] MEDS ORDERED: KETOROLAC TROMETHAMINE 30 MG/ML (IVP) VIAL IV PUSH ONE (06:00)
[2018-02-01 07:54] VITALS: BP 138/80; PULSE 53; RESP 18; TEMP 97.8; O2SAT 97
--- NOTE | 2018-02-01 08:17 | HHI.PR ---
Subjective Remarks Follow up for intractable nausea/vomiting. The patient reports feeling much better this morning. His last episode of vomiting was early this morning, and has since been tolerating liquids. Denies any fevers or chills. He states his abdomen just feels sore from all of vomiting yesterday, but denies any specific abdominal pain. Denies any diarrhea. Last bowel movement was yesterday, described as normal nonbloody formed stool. He does state recently he has felt sick with sneezing, nonproductive cough, body aches. He feels much better today and wants to go home. He has seen Dr. Hernandez in the past. The patient denies any excessive NSAID use, only occasional ibuprofen 1-2 times per week. He does report marijuana use, discussed possibility of marijuana induced hyperemesis, patient states he is going to stop smoking. Objective Vitals Vital Signs Date Time Temp Pulse Resp B/P (MAP) Pulse Ox O2 Delivery O2 Flow Rate FiO2 02/01/18 07:54 97.8 53 18 138/80 (99) 97 02/01/18 07:11 15 02/01/18 05:29 98.1 72 16 124/69 (87) 96 02/01/18 02:07 99.9 56 15 166/95 (118) 99 02/01/18 01:59 15 01/31/18 23:10 97.8 72 16 116/68 (84) 99 01/31/18 19:28 54 20 187/113 (137) 100 Room Air 01/31/18 17:43 55 16 187/97 (127) 97 Room Air 01/31/18 14:20 97.5 55 20 182/79 (113) 100 I/O 01/31/18 01/31/18 01/31/18 02/01/18 02/01/18 02/01/18 07:00 15:00 23:00 07:00 15:00 23:00 Intake Total 2000 ml Balance 2000 ml Intake IV Total 2000 ml Result Diagram: 01/31/18 1600 01/31/18 1600 Imaging Last Impressions Abdomen/Pelvis CT 02/01/18 0000 Signed Impressions: Service Date/Time: Thursday, February 01, 2018 04:51 - CONCLUSION: No acute CT findings in the abdomen or pelvis Omero Candelaria MD Objective Remarks GENERAL: Well-nourished, well-developed young male patient in NAD. SKIN: Warm and dry. No rash. HEENT: Normocephalic. Atraumatic.Pupils equal and round. Mucous membranes pink and moist. CARDIOVASCULAR: Regular rate and rhythm. No murmur appreciated. RESPIRATORY: No accessory muscle use. Clear to auscultation. Breath sounds equal bilaterally. GASTROINTESTINAL: Abdomen soft, non-tender, nondistended. Normoactive bowel sounds x4. MUSCULOSKELETAL: No obvious deformities. Extremities without clubbing, cyanosis , or edema. NEUROLOGICAL: Awake and alert. No obvious cranial nerve deficits. Motor grossly within normal limits. Normal speech. PSYCHIATRIC: Appropriate mood and affect; insight and judgment normal. Medications and IVs Current Medications Medications (Trade) Dose Ordered Sig/David Route Start Time Stop Time Status Last Admin (NS Flush) 2 ml UNSCH PRN IV FLUSH 01/31/18 16:15 02/01/18 06:11 Sodium Chloride 1,000 ml @ 100 mls/hr Q10H IV 01/31/18 23:02 02/01/18 09:55 (NS Flush) 2 ml UNSCH PRN IV FLUSH 01/31/18 23:15 (NS Flush) 2 ml BID IV FLUSH 02/01/18 09:00 02/01/18 09:55 (Tylenol) 650 mg Q4H PRN PO 01/31/18 23:15 (Zofran Inj) 4 mg Q6H PRN IVP 01/31/18 23:15 02/01/18 09:55 (Compazine Supp) 25 mg Q12H PRN RECTAL 01/31/18 23:15 (Narcan Inj) 0.4 mg UNSCH PRN IV PUSH 01/31/18 23:15 (Flu (Quadrivalent) Vaccine Inj) 0.5 ml ONCE ONCE IM 02/02/18 10:00 02/02/18 10:01 A/P Assessment and Plan 22-year-old male with no significant past medical history presents with intractable nausea/vomiting 24 hours. Viral gastroenteritis: Patient presented with intractable diffuse abdominal pain , nausea/vomiting, with recent viral URI. -Abdominal CT images reviewed, no acute findings -Mild leukocytosis with WBC 13K, likely reactive to vomiting, patient is afebrile -Supportive treatment with IVF hydration, antiemetics as needed -Symptoms improved, patient tolerating clear liquid diet, advance to soft diet at lunch and will likely discharge if no further vomiting -Outpatient follow-up with central office worker Dr. Hernandez -Patient takes Nexium at home, and has carafate prn, will give rx for zofran prn Marijuana Use: -discussed possibility of marijuana induced hyperemesis, counseled on cessation, patient states he is going to stop smoking. DVT Prophylaxis: patient is ambulatory Discharge Planning Discharge patient to home Condition on discharge: Improved Regular Diet as tolerated Ad Tara activity Rx written: Zofran ODT prn Follow-up with primary care physician and central office worker Jo Johnson PA-C Feb 01, 2018 8:17 am
[2018-02-01 08:22] LABS: AUTOMATED NEUTROPHIL # 8.6 TH/MM3 (1.8-7.7); BASOPHIL # 0.1 TH/MM3 (0-0.2); BASOPHIL % 0.4 % (0.0-2.0); EOSINOPHIL # 0.1 TH/MM3 (0-0.4); HEMATOCRIT 42.5 % (39.0-51.0); HEMOGLOBIN 14.7 GM/DL (13.0-17.0); LYMPH % 29.4 % (9.0-44.0); LYMPHOCYTE # 4.2 TH/MM3 (1.0-4.8); MEAN CELL VOLUME 85.3 FL (80.0-100.0); MEAN CORPUSCULAR HEMOGLOBIN 29.5 PG (27.0-34.0); MEAN CORPUSCULAR HGB CONC 34.6 % (32.0-36.0); MEAN PLATELET VOLUME 9.5 FL (7.0-11.0); MONO % 9.2 % (0.0-8.0); MONOCYTE # 1.3 TH/MM3 (0-0.9); PLATELET COUNT 222 TH/MM3 (150-450); RED BLOOD COUNT 4.98 MIL/MM3 (4.50-5.90); RED CELL DISTRIBUTION WIDTH 13.1 % (11.6-17.2); WHITE BLOOD COUNT 14.3 TH/MM3 (4.0-11.0)
[2018-02-01 08:44] LABS: BICARBONATE 24.6 MEQ/L (21.0-32.0); CALCIUM 8.3 MG/DL (8.5-10.1); CREATININE 0.88 MG/DL (0.60-1.30)
[2018-02-01] MEDS ORDERED: SODIUM CHLORIDE 0.9% FLUSH 10 ML FLUSH IV FLUSH SCH (09:00)
[2018-02-01] MEDS: ONDANSETRON HCL 4 MG/2 ML VIAL IVP PRN (09:55)
[2018-02-01] MEDS: SODIUM CHLOR 0.9% 1000 ML INJ 1,000 ML IV SCH (09:55)
[2018-02-01] MEDS ORDERED: ONDA4TAB7 SL (11:23)
[2018-02-01 11:24] VITALS: BP 122/74; PULSE 60; RESP 18; TEMP 98.8; O2SAT 97
--- NOTE | 2018-02-01 11:24 | HHI.DCPOC ---
Discharge Care Plan Diagnosis: (1) Gastroenteritis (2) Intractable vomiting with nausea Goals to Promote Your Health * To prevent worsening of your condition and complications * To maintain your health at the optimal level Directions to Meet Your Goals Take your medications as prescribed Follow your dietary instruction Follow activity as directed Keep your appointments as scheduled Take your immunizations and boosters as scheduled If your symptoms worsen call your PCP, if no PCP go to Urgent Care Center or Emergency Room Smoking is Dangerous to Your Health. Avoid second hand smoke Call the 24-hour hour crisis hotline for domestic abuse at Jo Pratt PA-C Feb 01, 2018 11:24 am
[2018-02-01] MEDS ORDERED: SUCRALFATE 1 GM/10 ML CUP PO SCH (12:00)
[2018-02-01] MEDS ORDERED: PANTOPRAZOLE SODIUM 40 MG VIAL IV PUSH SCH (13:00)
[2018-02-01] MEDS ORDERED: NICOTINE 21 MG/24 HR PATCH T-DERMAL SCH (14:00)
[2018-02-01] MEDS ORDERED: REMOVE OLD PATCH T-DERMAL SCH (14:00)
[2018-02-02] MEDS ORDERED: INFLUENZA VIRUS VACCINE (QUADRIVALENT) 0.5 ML SYR IM ONE (10:00)
== END 2018-02-01 18:05 | disposition home or self-care (01) ==
LOC: NEPD 14:11 → NEDA 20:25 → NEPHCDU 22:46
PROVIDERS: ADMIT Internal Medicine; ATTEND Internal Medicine
DX: A08.4 Viral intestinal infection, unspecified (principal); E86.0 Dehydration; R05 Cough; R06.6 Hiccough; K21.9 Gastro-esophageal reflux disease without esophagitis; F17.200 Nicotine dependence, unspecified, uncomplicated; F12.90 Cannabis use, unspecified, uncomplicated
CPT/HCPCS: 74176; 80048; 80053; 81001; 83605; 83690; 85025; 96361; 96374; 96375; 96376; 99285; C9113; G0378; J0780; J1170; J1885; J2270; J2405; J2765; J7030

== ENCOUNTER 2018-02-03 17:03 | Emergency (ER) | payer SELFPAY ==
[~2018-02-03] VITALS: Ht 177.8 cm; Wt 91.0 kg
[~2018-02-03 17:03] MED LIST changes: +CARA1TAB6 PO; +ONDA4TAB7 SL; -TYLE325T PO; -ZOFR4TAB3 SL
[2018-02-03 17:11] VITALS: BP 145/74; PULSE 90; RESP 18; TEMP 98.7; O2SAT 97
[2018-02-03 20:04] VITALS: BP 127/86; PULSE 60; RESP 18; O2SAT 100
[2018-02-03] MEDS ORDERED: LIDOCAINE VISCOUS 2% SOLN 15 ML UDC SWISH-SWAL ONE (20:15)
[2018-02-03] MEDS ORDERED: ONDANSETRON ODT 4 MG TAB PO ONE (20:15)
[2018-02-03] MEDS ORDERED: ALUMINUM/MAGNESIUM/SIMETH 30 ML CUP PO ONE (20:15)
--- NOTE | 2018-02-03 20:25 | PD ---
HPI Chief Complaint: GI Complaint Time Seen by Provider: 20:01 Travel History International Travel<30 days: No Contact w/Intl Traveler<30days: No Traveled to known affect area: No History of Present Illness HPI pt has severe epigastric to substernal pain that started again today , he was just admitted for intractable vomit and abdo pain and discharged on 02/01 and now returns , Pain is 10/10 localized to the epigatrum with radiation up his sternal area, , took zofran to stop the vomit wiohtout relief , pt now has returned to ER , Hx had GB ouit 1 year ago, and folloowed by GI MD Dr Walker and , all his labs and CT 02/01 were negative, Pt required multiple doses of Narcotics before his pain was relieved , Now again back same complint. I reviewed medical records and there have been 3 CT abdo no findings when he has come in in last year for same complaint PFSH Past Medical History Blood Disorders: No Anxiety: Yes Depression: No Cancer: No Cardiovascular Problems: No Diabetes: No Patient Takes Glucophage: No Diminished Hearing: No Endocrine: No Gastrointestinal Disorders: Yes Genitourinary: No Headaches: Yes Immune Disorder: No Musculoskeletal: No Neurologic: Yes (headaches, migraines, dizzy when bends over) Psychiatric: Yes Reproductive: No Respiratory: No Immunizations Current: Yes Migraines: Yes Pancreatitis: Yes Tetanus Vaccination: < 5 Years Influenza Vaccination: No Past Surgical History Abdominal Surgery: Yes Cholecystectomy: Yes Tonsillectomy: Yes Other Surgery: Yes (tonsillectomy, cholycystectomy) Social History Alcohol Use: Yes (OCC) Tobacco Use: Yes (1 PPD) Substance Use: Yes (CANNABIS) Allergies-Medications (Allergen,Severity, Reaction): Coded Allergies: penicillin G (Unverified Allergy, Severe, 02/03/18) Sulfa (Sulfonamide Antibiotics) (Unverified Allergy, Unknown, 02/03/18) naproxen (Unverified Adverse Reaction, Severe, Nausea/Vomiting, 02/03/18) Reported Meds & Prescriptions Reported Meds & Active Scripts Active Protonix (Pantoprazole Sodium) 40 Mg Tab 40 Mg PO DAILY Ondansetron Odt 4 Mg Tab 4 Mg SL Q8HR PRN Reported Carafate (Sucralfate) 1 Gram Tab 1 Gm PO DAILY On empty stomach Review of Systems Except as stated in HPI: all other systems reviewed are Neg Gastrointestinal: Positive: Nausea, Vomiting, Abdominal Pain Physical Exam Narrative GENERAL: curled up in pain on stretcher holding up to me his vomitus in bag when I asked how he is feeling. SKIN: Warm and dry. HEAD: Atraumatic. Normocephalic. EYES: Pupils equal and round. No scleral icterus. No injection or drainage. ENT: No nasal bleeding or discharge. Mucous membranes pink and moist. NECK: Trachea midline. No JVD. CARDIOVASCULAR: Regular rate and rhythm. RESPIRATORY: No accessory muscle use. Clear to auscultation. Breath sounds equal bilaterally. GASTROINTESTINAL: Abdomen epigastric tender and RUQ tendernes nondistended. Hepatic and splenic margins not palpable. MUSCULOSKELETAL: Extremities without clubbing, cyanosis, or edema. No obvious deformities. NEUROLOGICAL: Awake and alert. No obvious cranial nerve deficits. Motor grossly within normal limits. Five out of 5 muscle strength in the arms and legs. Normal speech. PSYCHIATRIC: Appropriate mood and affect; insight and judgment normal. Data Data Last Documented VS Vital Signs Date Time Temp Pulse Resp B/P (MAP) Pulse Ox O2 Delivery O2 Flow Rate FiO2 02/04/18 01:54 02/03/18 23:08 67 16 98 Room Air 02/03/18 17:11 98.7 Orders Orders Al-Mag Hy-Si 40-40-4 Mg/Ml Liq (Mag-Al P (02/03/18 20:15) Lidocaine 2% Viscous (Xylocaine 2% Visco (02/03/18 20:15) Ondansetron Odt (Zofran Odt) (02/03/18 20:15) Complete Blood Count With Diff (02/03/18 20:38) Comprehensive Metabolic Panel (02/03/18 20:38) Lipase (02/03/18 20:38) Ondansetron Inj (Zofran Inj) (02/03/18 20:45) Famotidine Inj (Pepcid Inj) (02/03/18 20:45) Sodium Chlor 0.9% 1000 Ml Inj (Ns 1000 M (02/03/18 20:45) Ketorolac Inj (Toradol Inj) (02/03/18 21:30) Pantoprazole Inj (Protonix Inj) (02/03/18 22:00) Lorazepam Inj (Ativan Inj) (02/03/18 22:00) Sodium Chlor 0.9% 1000 Ml Inj (Ns 1000 M (02/03/18 22:30) Sodium Chlor 0.9% 1000 Ml Inj (Ns 1000 M (02/03/18 22:30) Comprehensive Metabolic Panel (02/04/18 00:54) Lactic Acid (02/04/18 00:54) Complete Blood Count With Diff (02/04/18 00:54) Ed Discharge Order (02/04/18 01:53) Labs Laboratory Tests Test 02/03/18 20:45 02/04/18 01:00 White Blood Count 15.9 TH/MM3 12.4 TH/MM3 Red Blood Count 6.60 MIL/MM3 5.13 MIL/MM3 Hemoglobin 19.1 GM/DL 15.1 GM/DL Hematocrit 55.9 % 42.8 % Mean Corpuscular Volume 84.6 FL 83.5 FL Mean Corpuscular Hemoglobin 29.0 PG 29.6 PG Mean Corpuscular Hemoglobin Concent 34.3 % 35.4 % Red Cell Distribution Width 13.2 % 13.0 % Platelet Count 265 TH/MM3 190 TH/MM3 Mean Platelet Volume 9.1 FL 8.9 FL Neutrophils (%) (Auto) 57.1 % 60.5 % Lymphocytes (%) (Auto) 33.7 % 31.0 % Monocytes (%) (Auto) 8.4 % 7.8 % Eosinophils (%) (Auto) 0.4 % 0.3 % Basophils (%) (Auto) 0.4 % 0.4 % Neutrophils # (Auto) 9.0 TH/MM3 7.5 TH/MM3 Lymphocytes # (Auto) 5.3 TH/MM3 3.8 TH/MM3 Monocytes # (Auto) 1.3 TH/MM3 1.0 TH/MM3 Eosinophils # (Auto) 0.1 TH/MM3 0.0 TH/MM3 Basophils # (Auto) 0.1 TH/MM3 0.0 TH/MM3 CBC Comment AUTO DIFF DIFF FINAL Differential Total Cells Counted 100 Neutrophils % (Manual) 55 % Lymphocytes % 36 % Monocytes % 8 % Eosinophils % 1 % Neutrophils # (Manual) 8.7 TH/MM3 Differential Comment FINAL DIFF MANUAL Atypical Lymphocytes % Platelet Estimate NORMAL Platelet Morphology Comment NORMAL Red Cell Morphology Comment NORMAL Blood Urea Nitrogen 11 MG/DL 9 MG/DL Creatinine 1.31 MG/DL 1.08 MG/DL Random Glucose 114 MG/DL 126 MG/DL Total Protein 9.2 GM/DL 6.4 GM/DL Albumin 4.8 GM/DL 3.3 GM/DL Calcium Level 9.4 MG/DL 7.8 MG/DL Alkaline Phosphatase 91 U/L 66 U/L Aspartate Amino Transf (AST/SGOT) 74 U/L 47 U/L Alanine Aminotransferase (ALT/SGPT) 191 U/L 138 U/L Total Bilirubin 2.1 MG/DL 1.4 MG/DL Sodium Level 138 MEQ/L 141 MEQ/L Potassium Level 3.6 MEQ/L 3.1 MEQ/L Chloride Level 100 MEQ/L 106 MEQ/L Carbon Dioxide Level 29.5 MEQ/L 28.0 MEQ/L Anion Gap 9 MEQ/L 7 MEQ/L Estimat Glomerular Filtration Rate 67 ML/MIN 84 ML/MIN Lipase 349 U/L Lactic Acid Level 1.7 mmol/L [facility] Medical Decision Making Medical Screen Exam Complete: Yes Emergency Medical Condition: Yes Differential Diagnosis cyclical vomiting syndrome vs gastritis vs pancreatiits vs maligingering or narcotic seeking behavior or bowel obstruction Narrative Course Patient is given 2 L of fluid is given Toradol Pepcid IV and then he still is in pain I gave him GI cocktail which he vomited give him Zofran p.o. and then IV and patient is asking for morphine I tell him it is not indicated I reviewed all of his prior studies 3 CAT scans in the last year have been negative his had MRCP which was negative and to give him Ativan and Protonix which he first refuses that he accepts and falls asleep 3 L repeat labs discharged home to follow-up with gastroenterology as an outpatient Diagnosis Primary Impression: Vomiting Qualified Codes: R11.10 - Vomiting, unspecified Additional Impression: Abdominal pain Patient Instructions: Acute Nausea and Vomiting (ED), General Instructions Scripts Pantoprazole (Protonix) 40 Mg Tab 40 MG PO DAILY for Ulcer Prevention, #30 TAB 0 Refills Prov: Wesly Oconnell MD 02/04/18 Disposition: 01 DISCHARGE HOME Condition: Good Wesly Oconnell MD Feb 03, 2018 20:25
[2018-02-03] MEDS ORDERED: ONDANSETRON HCL 4 MG/2 ML VIAL IV PUSH ONE (20:45)
[2018-02-03] MEDS ORDERED: FAMOTIDINE 20 MG/2 ML VIAL IV PUSH SCH (20:45)
[2018-02-03] MEDS ORDERED: SODIUM CHLOR 0.9% 1000 ML INJ 1,000 ML IV ONE ×3 (20:45→22:30)
[2018-02-03 21:09] LABS: BASOPHIL # 0.1 TH/MM3 (0-0.2); BASOPHIL % 0.4 % (0.0-2.0); EOSINOPHIL # 0.1 TH/MM3 (0-0.4); EOSINOPHIL % 0.4 % (0.0-4.0); HEMATOCRIT 55.9 % (39.0-51.0); HEMOGLOBIN 19.1 GM/DL (13.0-17.0); LYMPH % 33.7 % (9.0-44.0); LYMPHOCYTE # 5.3 TH/MM3 (1.0-4.8); MEAN CELL VOLUME 84.6 FL (80.0-100.0); MEAN CORPUSCULAR HGB CONC 34.3 % (32.0-36.0); MEAN PLATELET VOLUME 9.1 FL (7.0-11.0); MONO % 8.4 % (0.0-8.0); MONOCYTE # 1.3 TH/MM3 (0-0.9); NEUT % 57.1 % (16.0-70.0); PLATELET COUNT 265 TH/MM3 (150-450); RED CELL DISTRIBUTION WIDTH 13.2 % (11.6-17.2); WHITE BLOOD COUNT 15.9 TH/MM3 (4.0-11.0)
[2018-02-03] MEDS ORDERED: KETOROLAC TROMETHAMINE 30 MG/ML (IVP) VIAL IV PUSH ONE (21:30)
[2018-02-03 21:43] LABS: ALBUMIN 4.8 GM/DL (3.4-5.0); ALKALINE PHOSPHATASE 91 U/L (45-117); ALT (GPT) 191 U/L (12-78); AST (GOT) 74 U/L (15-37); BICARBONATE 29.5 MEQ/L (21.0-32.0); BLOOD UREA NITROGEN 11 MG/DL (7-18); CALCIUM 9.4 MG/DL (8.5-10.1); CHLORIDE 100 MEQ/L (98-107); CREATININE 1.31 MG/DL (0.60-1.30); GLOMERULAR FILTRATION RATE 67 ML/MIN (>89); GLUCOSE,RANDOM 114 MG/DL (74-106); SODIUM (NA) 138 MEQ/L (136-145); TOTAL BILIRUBIN ADULT 2.1 MG/DL (0.2-1.0); TOTAL PROTEIN 9.2 GM/DL (6.4-8.2)
[2018-02-03] MEDS ORDERED: LORazepam 2 MG/ML VIAL IV PUSH ONE (22:00)
[2018-02-03] MEDS ORDERED: PANTOPRAZOLE SODIUM 40 MG VIAL IV PUSH ONE (22:00)
[2018-02-03 22:10] LABS: LYMPHOCYTES 36 % (9-44); MONOCYTES 8 % (0-8); NEUTROPHIL # MANUAL DIFF 8.7 TH/MM3 (1.8-7.7); POLYS (SEG NEUTROPHILS) 55 % (16-70)
[2018-02-03 23:08] VITALS: BP 127/71; PULSE 67; RESP 16; O2SAT 98
[2018-02-04 01:31] LABS: AUTOMATED NEUTROPHIL # 7.5 TH/MM3 (1.8-7.7); BASOPHIL % 0.4 % (0.0-2.0); EOSINOPHIL % 0.3 % (0.0-4.0); HEMATOCRIT 42.8 % (39.0-51.0); HEMOGLOBIN 15.1 GM/DL (13.0-17.0); LYMPHOCYTE # 3.8 TH/MM3 (1.0-4.8); MEAN CELL VOLUME 83.5 FL (80.0-100.0); MEAN CORPUSCULAR HEMOGLOBIN 29.6 PG (27.0-34.0); MEAN CORPUSCULAR HGB CONC 35.4 % (32.0-36.0); MEAN PLATELET VOLUME 8.9 FL (7.0-11.0); MONO % 7.8 % (0.0-8.0); NEUT % 60.5 % (16.0-70.0); PLATELET COUNT 190 TH/MM3 (150-450); RED BLOOD COUNT 5.13 MIL/MM3 (4.50-5.90); WHITE BLOOD COUNT 12.4 TH/MM3 (4.0-11.0)
[2018-02-04 01:39] LABS: ALBUMIN 3.3 GM/DL (3.4-5.0); ALKALINE PHOSPHATASE 66 U/L (45-117); ALT (GPT) 138 U/L (12-78); AST (GOT) 47 U/L (15-37); BLOOD UREA NITROGEN 9 MG/DL (7-18); CALCIUM 7.8 MG/DL (8.5-10.1); CHLORIDE 106 MEQ/L (98-107); CREATININE 1.08 MG/DL (0.60-1.30); GLOMERULAR FILTRATION RATE 84 ML/MIN (>89); GLUCOSE,RANDOM 126 MG/DL (74-106); SODIUM (NA) 141 MEQ/L (136-145); TOTAL BILIRUBIN ADULT 1.4 MG/DL (0.2-1.0); TOTAL PROTEIN 6.4 GM/DL (6.4-8.2)
[2018-02-04] MEDS ORDERED: PROT40TA PO (01:53)
[2018-02-05] MEDS ORDERED: PROM1SUP7 RECTAL (14:01)
== END 2018-02-04 02:23 | disposition home or self-care (01) ==
LOC: NEPC 17:03
DX: R11.10 Vomiting, unspecified (principal); R10.13 Epigastric pain; F41.9 Anxiety disorder, unspecified; F17.200 Nicotine dependence, unspecified, uncomplicated; F12.90 Cannabis use, unspecified, uncomplicated
CPT/HCPCS: 80053; 83605; 83690; 85007; 85025; 85027; 96361; 96374; 96375; 99284; C9113; J1885; J2060; J2405; J7030

== ENCOUNTER 2018-02-05 11:09 | Emergency (ER) | payer SELFPAY ==
[~2018-02-05] VITALS: Ht 177.8 cm; Wt 90.5 kg
[~2018-02-05 11:09] MED LIST changes: +PROT40TA PO
[2018-02-05 11:34] VITALS: BP 183/100; PULSE 71; RESP 18; TEMP 98.4; O2SAT 100
[2018-02-05] MEDS ORDERED: SODIUM CHLOR 0.9% 1000 ML INJ 1,000 ML IV ONE (12:30)
[2018-02-05] MEDS ORDERED: PROMETHAZINE INJ 25 MG/ML VIAL IM ONE (12:30)
[2018-02-05] MEDS ORDERED: SODIUM CHLORIDE 0.9% FLUSH 10 ML FLUSH IV FLUSH PRN (12:30)
[2018-02-05] MEDS ORDERED: LORazepam 2 MG/ML VIAL IV PUSH ONE (12:30)
[2018-02-05] MEDS ORDERED: ONDANSETRON HCL 4 MG/2 ML VIAL IVP ONE (12:30)
--- NOTE | 2018-02-05 12:30 | PD ---
HPI Chief Complaint: GI Complaint Time Seen by Provider: 12:10 Travel History International Travel<30 days: No Contact w/Intl Traveler<30days: No Traveled to known affect area: No History of Present Illness HPI This patient complains of nausea and vomiting abdominal pain. This is a chronic intermittent problem he has had for a long time. Extensive GI workup is yielded no diagnosis. This is his third visit in 5 days for the same thing. He had a negative CT of abdomen and pelvis 4 days ago. He denies diarrhea or fever. He is a frequent marijuana smoker. He has no gallbladder. Denies alcohol abuse or any IV drug abuse. Symptoms moderately severe. No alleviating factors. No definite exacerbating factors. PFSH Past Medical History Blood Disorders: No Anxiety: Yes Depression: No Cancer: No Cardiovascular Problems: No Diabetes: No Diminished Hearing: No Endocrine: No Gastrointestinal Disorders: Yes Genitourinary: No Headaches: Yes Immune Disorder: No Musculoskeletal: No Neurologic: Yes (headaches, migraines, dizzy when bends over) Psychiatric: Yes Reproductive: No Respiratory: No Immunizations Current: Yes Migraines: Yes Pancreatitis: Yes Past Surgical History Abdominal Surgery: Yes Cholecystectomy: Yes Tonsillectomy: Yes Other Surgery: Yes (tonsillectomy, cholycystectomy) Social History Alcohol Use: Yes (OCC) Tobacco Use: Yes (1 PPD) Substance Use: Yes (CANNABIS) Allergies-Medications (Allergen,Severity, Reaction): Coded Allergies: penicillin G (Unverified Allergy, Severe, 02/03/18) Sulfa (Sulfonamide Antibiotics) (Unverified Allergy, Unknown, 02/03/18) naproxen (Unverified Adverse Reaction, Severe, Nausea/Vomiting, 02/03/18) Reported Meds & Prescriptions Reported Meds & Active Scripts Active Protonix (Pantoprazole Sodium) 40 Mg Tab 40 Mg PO DAILY Ondansetron Odt 4 Mg Tab 4 Mg SL Q8HR PRN Reported Carafate (Sucralfate) 1 Gram Tab 1 Gm PO DAILY On empty stomach Review of Systems General / Constitutional: No: Fever Eyes: No: Visual changes HENT: No: Headaches Cardiovascular: No: Chest Pain or Discomfort Respiratory: No: Shortness of Breath Gastrointestinal: Positive: Nausea, Vomiting, Abdominal Pain Genitourinary: No: Dysuria Musculoskeletal: No: Pain Skin: No Rash Neurologic: No: Weakness Psychiatric: Positive: Substance Abuse, No: Depression Endocrine: No: Polydipsia Hematologic/Lymphatic: No: Easy Bruising Physical Exam Narrative GENERAL: Well-nourished, well-developed patient with vomiting and abdominal cramps SKIN: Focused skin assessment reveals no rash and nodules. Skin is Warm and dry. HEAD: Atraumatic. Normocephalic. EYES: Pupils equal and round. No scleral icterus. No injection or drainage. ENT: No nasal bleeding or discharge. Mucous membranes pink and moist. NECK: Trachea midline. No JVD. CARDIOVASCULAR: Regular rate and rhythm. No murmur appreciated. RESPIRATORY: No accessory muscle use. Clear to auscultation. Breath sounds equal bilaterally. GASTROINTESTINAL: Abdomen soft, non-tender, nondistended. Hepatic and splenic margins not palpable. MUSCULOSKELETAL: No obvious deformities. No clubbing. No cyanosis. No edema. NEUROLOGICAL: Awake and alert. No obvious cranial nerve deficits. Motor grossly within normal limits. Normal speech. PSYCHIATRIC: Appropriate mood and affect; insight and judgment normal. Data Data Last Documented VS Vital Signs Date Time Temp Pulse Resp B/P (MAP) Pulse Ox O2 Delivery O2 Flow Rate FiO2 02/05/18 12:08 18 02/05/18 11:34 98.4 71 183/100 (127) 100 Orders Orders Complete Blood Count With Diff (02/05/18 12:22) Comprehensive Metabolic Panel (02/05/18 12:22) Lipase (02/05/18 12:22) Iv Access Insert/Monitor (02/05/18 12:22) NPO (02/05/18 12:22) Ondansetron Inj (Zofran Inj) (02/05/18 12:30) Sodium Chloride 0.9% Flush (Ns Flush) (02/05/18 12:30) Promethazine Inj (Phenergan Inj) (02/05/18 12:30) Sodium Chlor 0.9% 1000 Ml Inj (Ns 1000 M (02/05/18 12:30) Lorazepam Inj (Ativan Inj) (02/05/18 12:30) Labs Laboratory Tests Test 02/05/18 12:27 White Blood Count 16.6 TH/MM3 Red Blood Count 6.01 MIL/MM3 Hemoglobin 17.9 GM/DL Hematocrit 51.3 % Mean Corpuscular Volume 85.4 FL Mean Corpuscular Hemoglobin 29.8 PG Mean Corpuscular Hemoglobin Concent 34.9 % Red Cell Distribution Width 13.3 % Platelet Count 219 TH/MM3 Mean Platelet Volume 9.0 FL Neutrophils (%) (Auto) 80.9 % Lymphocytes (%) (Auto) 13.6 % Monocytes (%) (Auto) 4.8 % Eosinophils (%) (Auto) 0.3 % Basophils (%) (Auto) 0.4 % Neutrophils # (Auto) 13.4 TH/MM3 Lymphocytes # (Auto) 2.2 TH/MM3 Monocytes # (Auto) 0.8 TH/MM3 Eosinophils # (Auto) 0.1 TH/MM3 Basophils # (Auto) 0.1 TH/MM3 CBC Comment AUTO DIFF Differential Comment AUTO DIFF CONFIRMED Blood Urea Nitrogen 10 MG/DL Creatinine 1.24 MG/DL Random Glucose 126 MG/DL Total Protein 8.4 GM/DL Albumin 4.4 GM/DL Calcium Level 9.2 MG/DL Alkaline Phosphatase 85 U/L Aspartate Amino Transf (AST/SGOT) 59 U/L Alanine Aminotransferase (ALT/SGPT) 220 U/L Total Bilirubin 1.5 MG/DL Sodium Level 139 MEQ/L Potassium Level 3.3 MEQ/L Chloride Level 102 MEQ/L Carbon Dioxide Level 28.5 MEQ/L Anion Gap 9 MEQ/L Estimat Glomerular Filtration Rate 72 ML/MIN Lipase 263 U/L MDM Medical Decision Making Medical Screen Exam Complete: Yes Emergency Medical Condition: Yes Medical Record Reviewed: Yes Differential Diagnosis Cyclical vomiting syndrome, marijuana induced emesis, dehydration, gastroparesis , narcotic withdrawal, malingering Narrative Course I have reviewed the patient's electronic medical record. Reviewed his visit from 4 days ago and also 2 days ago. Reviewed his negative CT from 4 days ago IV placed I gave him a liter normal saline IV as well as IV Zofran and IV Ativan and IM Phenergan Lab studies sent I do not see indication for emergent imaging today. He has had 3 negative CTs in the last year including one 4 days ago CBC shows some nonspecific leukocytosis. Renal function and electrolytes are essentially normal LFTs are mildly elevated but that is the usual for him On recheck he is doing much better I prescribed him some Phenergan suppositories to use as needed He is euvolemic now Discussed that he should stop using marijuana. This could be related. Diagnosis Primary Impression: Cyclical vomiting syndrome Qualified Codes: G43.A0 - Cyclical vomiting, not intractable Additional Impression: Marijuana use, continuous Additional Instructions: I have recommended clear liquids for 24 hours, then gradually advance as tolerated. The patient was warned about potential sedation for the medications they will receive on prescription. The patient was advised to follow up with their physician and return if they worsen. Stop all marijuana use Med/Other Pt SpecificInfo: Prescription(s) given Scripts Promethazine Supp (Phenergan Supp) 25 Mg Supp 25 MG RECTAL Q6H Y for NAUSEA OR VOMITING, #20 SUPP 0 Refills Prov: Ivan Centeno MD 02/05/18 Disposition: 01 DISCHARGE HOME Condition: Stable Ivan Centeno MD Feb 05, 2018 12:30
[2018-02-05 12:45] LABS: AUTOMATED NEUTROPHIL # 13.4 TH/MM3 (1.8-7.7); BASOPHIL # 0.1 TH/MM3 (0-0.2); BASOPHIL % 0.4 % (0.0-2.0); EOSINOPHIL # 0.1 TH/MM3 (0-0.4); EOSINOPHIL % 0.3 % (0.0-4.0); HEMATOCRIT 51.3 % (39.0-51.0); HEMOGLOBIN 17.9 GM/DL (13.0-17.0); LYMPH % 13.6 % (9.0-44.0); LYMPHOCYTE # 2.2 TH/MM3 (1.0-4.8); MEAN CELL VOLUME 85.4 FL (80.0-100.0); MEAN CORPUSCULAR HEMOGLOBIN 29.8 PG (27.0-34.0); MEAN CORPUSCULAR HGB CONC 34.9 % (32.0-36.0); MONO % 4.8 % (0.0-8.0); MONOCYTE # 0.8 TH/MM3 (0-0.9); NEUT % 80.9 % (16.0-70.0); PLATELET COUNT 219 TH/MM3 (150-450); RED BLOOD COUNT 6.01 MIL/MM3 (4.50-5.90); RED CELL DISTRIBUTION WIDTH 13.3 % (11.6-17.2); WHITE BLOOD COUNT 16.6 TH/MM3 (4.0-11.0)
[2018-02-05 13:12] LABS: ALBUMIN 4.4 GM/DL (3.4-5.0); ALT (GPT) 220 U/L (12-78); AST (GOT) 59 U/L (15-37); BICARBONATE 28.5 MEQ/L (21.0-32.0); BLOOD UREA NITROGEN 10 MG/DL (7-18); CALCIUM 9.2 MG/DL (8.5-10.1); CHLORIDE 102 MEQ/L (98-107); CREATININE 1.24 MG/DL (0.60-1.30); GLOMERULAR FILTRATION RATE 72 ML/MIN (>89); GLUCOSE,RANDOM 126 MG/DL (74-106); SODIUM (NA) 139 MEQ/L (136-145)
[2018-02-05 13:19] LABS: ALKALINE PHOSPHATASE 85 U/L (45-117); TOTAL BILIRUBIN ADULT 1.5 MG/DL (0.2-1.0); TOTAL PROTEIN 8.4 GM/DL (6.4-8.2)
[2018-02-05] MEDS ORDERED: PROM1SUP7 RECTAL (14:01)
== END 2018-02-05 14:30 | disposition home or self-care (01) ==
LOC: NEPD 11:09
DX: G43.A0 Cyclical vomiting, in migraine, not intractable (principal); F12.90 Cannabis use, unspecified, uncomplicated; F17.210 Nicotine dependence, cigarettes, uncomplicated
CPT/HCPCS: 80053; 83690; 85025; 96361; 96372; 96374; 96375; 99284; J2060; J2405; J2550; J7030

== ENCOUNTER 2018-02-08 10:08 | Emergency (ER) | payer SELFPAY ==
[~2018-02-08] VITALS: Ht 177.8 cm; Wt 90.0 kg
[~2018-02-08 10:08] MED LIST changes: +PROM1SUP7 RECTAL
[2018-02-08 10:27] VITALS: BP 178/94; PULSE 72; RESP 17; TEMP 98.3; O2SAT 100
[2018-02-08 11:27] LABS: AUTOMATED NEUTROPHIL # 13.8 TH/MM3 (1.8-7.7); BASOPHIL % 0.2 % (0.0-2.0); EOSINOPHIL # 0.1 TH/MM3 (0-0.4); EOSINOPHIL % 0.4 % (0.0-4.0); HEMATOCRIT 53.3 % (39.0-51.0); HEMOGLOBIN 18.9 GM/DL (13.0-17.0); LYMPH % 13.8 % (9.0-44.0); LYMPHOCYTE # 2.3 TH/MM3 (1.0-4.8); MEAN CELL VOLUME 84.3 FL (80.0-100.0); MEAN CORPUSCULAR HGB CONC 35.5 % (32.0-36.0); MONO % 3.8 % (0.0-8.0); MONOCYTE # 0.6 TH/MM3 (0-0.9); NEUT % 81.8 % (16.0-70.0); PLATELET COUNT 253 TH/MM3 (150-450); RED BLOOD COUNT 6.33 MIL/MM3 (4.50-5.90); RED CELL DISTRIBUTION WIDTH 13.2 % (11.6-17.2); WHITE BLOOD COUNT 16.9 TH/MM3 (4.0-11.0)
[2018-02-08 11:30] LABS: BILIRUBIN, URINE NEG (NEG); BLOOD, URINE NEG (NEG); GLUCOSE,URINE NEG (NEG); HYALINE CAST, URINE 3 /lpf (RARE); KETONE, URINE NEG (NEG); MUCUS URINE MOD /lpf (OCC); NITRITE,URINE NEG (NEG); PH, URINE 6.5 (5.0-8.5); SQUAMOUS EPITHELIAL CELL URINE <1 /hpf (0-5); URINE COLOR YELLOW (YELLW/STRAW); URINE LEUKOCYTE ESTERASE NEG (NEG)
[2018-02-08 11:41] LABS: ALBUMIN 4.8 GM/DL (3.4-5.0); ALT (GPT) 175 U/L (12-78); AST (GOT) 41 U/L (15-37); BICARBONATE 29.6 MEQ/L (21.0-32.0); BLOOD UREA NITROGEN 15 MG/DL (7-18); CALCIUM 9.9 MG/DL (8.5-10.1); CHLORIDE 100 MEQ/L (98-107); CREATININE 1.17 MG/DL (0.60-1.30); GLOMERULAR FILTRATION RATE 77 ML/MIN (>89); GLUCOSE,RANDOM 125 MG/DL (74-106); SODIUM (NA) 137 MEQ/L (136-145)
[2018-02-08 11:44] LABS: ALKALINE PHOSPHATASE 87 U/L (45-117); TOTAL BILIRUBIN ADULT 1.3 MG/DL (0.2-1.0); TOTAL PROTEIN 8.9 GM/DL (6.4-8.2)
[2018-02-08] MEDS ORDERED: SODIUM CHLOR 0.9% 1000 ML INJ 1,000 ML IV SCH (11:44)
[2018-02-08] MEDS ORDERED: ONDANSETRON HCL 4 MG/2 ML VIAL IVP ONE (11:45)
[2018-02-08] MEDS ORDERED: ALUMINUM/MAGNESIUM/SIMETH 30 ML CUP PO ONE (11:45)
[2018-02-08] MEDS ORDERED: SODIUM CHLORIDE 0.9% FLUSH 10 ML FLUSH IV FLUSH PRN (11:45)
[2018-02-08] MEDS ORDERED: MORPHINE SULFATE 4 MG/ML INJ IV PUSH ONE (11:45)
[2018-02-08] MEDS ORDERED: LIDOCAINE VISCOUS 2% SOLN 15 ML UDC PO ONE (11:45)
[2018-02-08 11:48] VITALS: RESP 18; O2SAT 98
[2018-02-08] MEDS ORDERED: CIPR-9 PO (11:56)
[2018-02-08] MEDS ORDERED: TRAM50 PO (11:56)
[2018-02-08] MEDS ORDERED: METR-1 PO (11:56)
[2018-02-08] MEDS ORDERED: ZOFR4TAB3 SL (11:56)
--- NOTE | 2018-02-08 11:58 | PD ---
HPI Chief Complaint: Abdominal Pain Time Seen by Provider: 11:39 Travel History International Travel<30 days: No Contact w/Intl Traveler<30days: No Traveled to known affect area: No History of Present Illness HPI Patient comes in with intermittent nausea vomiting and abdominal cramping pain. He had an episode like this about a week ago he came into the emergency department and had a full workup including a CAT scan. Today he presents with about 3 hour. Where he has had an abdominal cramping diffuse originally started epigastric but HAS now become diffuse 9 out of 10, associated with nausea and vomiting without hematemesis. No GI bleeding. Patient denies any alleviating or aggravating factors. Patient denies any associated factors such as fever, rash, neck pain, chest pain, flank pain, back pain at this time PFSH Past Medical History Blood Disorders: No Anxiety: Yes Depression: No Cancer: No Cardiovascular Problems: No Diabetes: No Diminished Hearing: No Endocrine: No Gastrointestinal Disorders: Yes Genitourinary: No Headaches: Yes Immune Disorder: No Musculoskeletal: No Neurologic: Yes (headaches, migraines, dizzy when bends over) Psychiatric: Yes Reproductive: No Respiratory: No Immunizations Current: Yes Migraines: Yes Pancreatitis: Yes Tetanus Vaccination: < 5 Years Past Surgical History Abdominal Surgery: Yes Cholecystectomy: Yes Tonsillectomy: Yes Other Surgery: Yes (tonsillectomy, cholycystectomy) Social History Alcohol Use: Yes (OCC) Tobacco Use: Yes (1 PPD) Substance Use: Yes (CANNABIS) Allergies-Medications (Allergen,Severity, Reaction): Coded Allergies: penicillin G (Unverified Allergy, Severe, 02/08/18) Sulfa (Sulfonamide Antibiotics) (Unverified Allergy, Unknown, 02/08/18) naproxen (Unverified Adverse Reaction, Severe, Nausea/Vomiting, 02/08/18) Reported Meds & Prescriptions Reported Meds & Active Scripts Active Phenergan Supp (Promethazine HCl) 25 Mg Supp 25 Mg RECTAL Q6H PRN Protonix (Pantoprazole Sodium) 40 Mg Tab 40 Mg PO DAILY Reported Carafate (Sucralfate) 1 Gram Tab 1 Gm PO DAILY On empty stomach Review of Systems General / Constitutional: No: Fever Eyes: No: Visual changes HENT: No: Headaches Cardiovascular: No: Chest Pain or Discomfort Respiratory: No: Shortness of Breath Gastrointestinal: Positive: Nausea, Vomiting, Abdominal Pain Genitourinary: No: Dysuria Musculoskeletal: No: Pain Skin: No Rash Neurologic: No: Weakness Psychiatric: No: Depression Endocrine: No: Polydipsia Hematologic/Lymphatic: No: Easy Bruising Physical Exam Narrative GENERAL: SKIN: Warm and dry. HEAD: Atraumatic. Normocephalic. EYES: Pupils equal and round. No scleral icterus. No injection or drainage. ENT: No nasal bleeding or discharge. Mucous membranes pink and moist. NECK: Trachea midline. No JVD. CARDIOVASCULAR: Regular rate and rhythm. RESPIRATORY: No accessory muscle use. Clear to auscultation. Breath sounds equal bilaterally. GASTROINTESTINAL: Abdomen soft, mild tenderness to percussion to epigastric region, nondistended. No rebound/rigidity/guarding MUSCULOSKELETAL: Extremities without clubbing, cyanosis, or edema. No obvious deformities. NEUROLOGICAL: Awake and alert. No obvious cranial nerve deficits. Motor grossly within normal limits. Five out of 5 muscle strength in the arms and legs. Normal speech. PSYCHIATRIC: Appropriate mood and affect; insight and judgment normal. Data Data Last Documented VS Vital Signs Date Time Temp Pulse Resp B/P (MAP) Pulse Ox O2 Delivery O2 Flow Rate FiO2 02/08/18 10:27 98.3 72 17 178/94 (122) 100 Orders Orders Complete Blood Count With Diff (02/08/18 10:29) Comprehensive Metabolic Panel (02/08/18 10:29) Urinalysis - C+S If Indicated (02/08/18 10:29) Lipase (02/08/18 10:29) Iv Access Insert/Monitor (02/08/18 11:44) Ecg Monitoring (02/08/18 11:44) Oximetry (02/08/18 11:44) NPO (02/08/18 11:44) Morphine Inj (Morphine Inj) (02/08/18 11:45) Ondansetron Inj (Zofran Inj) (02/08/18 11:45) Sodium Chlor 0.9% 1000 Ml Inj (Ns 1000 M (02/08/18 11:44) Sodium Chloride 0.9% Flush (Ns Flush) (02/08/18 11:45) Al-Mag Hy-Si 40-40-4 Mg/Ml Liq (Mag-Al P (02/08/18 11:45) Lidocaine 2% Viscous (Xylocaine 2% Visco (02/08/18 11:45) Labs Laboratory Tests Test 02/08/18 10:30 02/08/18 10:35 Urine Color YELLOW Urine Turbidity CLEAR Urine pH 6.5 Urine Specific [place] 1.028 Urine Protein 30 mg/dL Urine Glucose (UA) NEG mg/dL Urine Ketones NEG mg/dL Urine Occult Blood NEG Urine Nitrite NEG Urine Bilirubin NEG Urine Urobilinogen 2.0 MG/DL Urine Leukocyte Esterase NEG Urine RBC 1 /hpf Urine WBC 1 /hpf Urine Squamous Epithelial Cells <1 /hpf Urine Hyaline Casts 3 /lpf Urine Mucus MOD /lpf Microscopic Urinalysis Comment CULT NOT INDICATED White Blood Count 16.9 TH/MM3 Red Blood Count 6.33 MIL/MM3 Hemoglobin 18.9 GM/DL Hematocrit 53.3 % Mean Corpuscular Volume 84.3 FL Mean Corpuscular Hemoglobin 30.0 PG Mean Corpuscular Hemoglobin Concent 35.5 % Red Cell Distribution Width 13.2 % Platelet Count 253 TH/MM3 Mean Platelet Volume 9.0 FL Neutrophils (%) (Auto) 81.8 % Lymphocytes (%) (Auto) 13.8 % Monocytes (%) (Auto) 3.8 % Eosinophils (%) (Auto) 0.4 % Basophils (%) (Auto) 0.2 % Neutrophils # (Auto) 13.8 TH/MM3 Lymphocytes # (Auto) 2.3 TH/MM3 Monocytes # (Auto) 0.6 TH/MM3 Eosinophils # (Auto) 0.1 TH/MM3 Basophils # (Auto) 0.0 TH/MM3 CBC Comment DIFF FINAL Differential Comment Blood Urea Nitrogen 15 MG/DL Creatinine 1.17 MG/DL Random Glucose 125 MG/DL Total Protein 8.9 GM/DL Albumin 4.8 GM/DL Calcium Level 9.9 MG/DL Alkaline Phosphatase 87 U/L Aspartate Amino Transf (AST/SGOT) 41 U/L Alanine Aminotransferase (ALT/SGPT) 175 U/L Total Bilirubin 1.3 MG/DL Sodium Level 137 MEQ/L Potassium Level 3.3 MEQ/L Chloride Level 100 MEQ/L Carbon Dioxide Level 29.6 MEQ/L Anion Gap 7 MEQ/L Estimat Glomerular Filtration Rate 77 ML/MIN Lipase 279 U/L [facility] Medical Decision Making Medical Screen Exam Complete: Yes Emergency Medical Condition: Yes Medical Record Reviewed: Yes Differential Diagnosis Pancreatitis versus hepatitis versus enteritis versus dyspeptic syndrome Narrative Course UA is negative for any evidence of UTI CBC shows hemoconcentration with a hemoglobin of 19 and hematocrit of 53, normal platelet count, mild leukocytosis 17,000 with 82% neutrophilia relatively normal electrolytes insignificant for the presentation. GLUC 125 , GFR 77, creatinine 1.17 LFTs mildly elevated ALT 175 AST of 41 and total bili 1.3 however normal lipase of 279 Diagnosis Primary Impression: Dyspeptic syndrome Scripts Tramadol (Ultram) 50 Mg Tab 50 MG PO Q8H Y for PAIN, #15 TAB 0 Refills Prov: Juan A Gutierres MD 02/08/18 Ondansetron Odt (Zofran Odt) 4 Mg Tab 4 MG SL Q8HR Y for Nausea/Vomiting, #30 TAB 0 Refills Prov: Juan A Gutierres MD 02/08/18 Metronidazole (Flagyl) 500 Mg Tab 500 MG PO TID for Infection for 7 Days, #21 TAB 0 Refills Prov: Juan A Gutierres MD 02/08/18 Ciprofloxacin (Cipro) 500 Mg Tab 500 MG PO BID for Infection for 5 Days, #10 TAB 0 Refills Prov: Juan A Gutierres MD 02/08/18 Disposition: 01 DISCHARGE HOME Condition: Stable Juan A Gutierres MD Feb 08, 2018 11:58
[2018-02-08 12:00] VITALS: BP 174/92; PULSE 67; RESP 16; O2SAT 100
[2018-02-08] MEDS ORDERED: traMADol HCL 50 MG TAB PO ONE (15:45)
[2018-02-08 15:55] VITALS: BP 173/98; PULSE 68; RESP 18; O2SAT 99
[2018-02-08 16:33] VITALS: BP 182/88
--- NOTE | 2018-02-08 16:45 | RADRPT ---
EXAM DATE/TIME: 02/08/2018 14:53 [place] COMPARISON: No previous studies available for comparison. INDICATIONS : Upper abdominal pain and vomiting with history of pancreatitis. MEDICAL HISTORY : Gastroesophageal reflux disease. Pancreatitis SURGICAL HISTORY : Cholecystectomy. ENCOUNTER: Initial ACUITY: 1 week PAIN SCORE: 8/10 LOCATION: Bilateral abdomen FINDINGS: Supine and upright views of the abdomen were performed. The abdominal bowel gas pattern is normal. No air fluid levels are seen. No abnormal masses, calcifications, or organomegaly is seen. Status p ost cholecystectomy. The visualized lower lungs are clear. No evidence of free intraperitoneal gas. The osseous structures are unremarkable. CONCLUSION: No acute disease. No free air noted. Link Fox MD on February 08, 2018 at 16:41 Board Certified Radiologist. This report was verified electronically.
== END 2018-02-08 16:33 | disposition home or self-care (01) ==
LOC: NEPD 10:08
DX: F41.9 Anxiety disorder, unspecified (principal); R10.13 Epigastric pain
CPT/HCPCS: 74019; 80053; 81001; 83690; 85025; 96361; 96374; 96375; 99284; J2270; J2405; J7030

== ENCOUNTER 2018-07-04 21:32 | Observation (INO) ==
[2018-07-04] MEDS ORDERED: Sod Chloride 0.9% Inj 1,000 ML IV.SIG ONE (23:48)
[2018-07-04] MEDS ORDERED: Morphine Inj 4 MG/ML Vial IV.PUSH ONE (23:48)
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
[2018-07-05 00:18] LABS: Baso % (Auto) 0.2 % (0.0-2.0); Eos % (Auto) 0.2 % (0.0-4.0); Hematocrit 52.4 % (39.0-51.0); Hemoglobin 18.2 gm/dL (13.0-17.0); Lymph # (Auto) 2.3 th/mm3 (1.0-4.8); Lymph % (Auto) 14.2 % (9.0-44.0); Mean Corpuscular HGB Conc 34.8 % (32.0-36.0); Mean Platelet Volume 9.3 fL (7.0-11.0); Mono # (Auto) 0.6 th/mm3 (0.0-0.9); Mono % (Auto) 3.8 % (0.0-8.0); Neut # (Auto) 13.5 th/mm3 (1.8-7.7); Neut % (Auto) 81.6 % (16.0-70.0); Platelet Count 237 th/mm3 (150-450); Red Blood Count 6.09 mil/mm3 (4.50-5.90); Red Cell Distribution Width 13.2 % (11.6-17.2); White Blood Count 16.5 th/mm3 (4.0-11.0)
[2018-07-05 00:42] LABS: Alanine Aminotransferase 42 U/L (12-78); Albumin 4.7 g/dL (3.4-5.0); Alkaline Phosphatase 79 U/L (45-117); Anion Gap 9 meq/L (5-15); Aspartate Aminotransferase 18 U/L (15-37); Blood Urea Nitrogen 12 mg/dL (7-18); Calcium 9.1 mg/dL (8.5-10.1); Carbon Dioxide 29.6 meq/L (21.0-32.0); Chloride 101 meq/L (98-107); Glomerular Filtration Rate 62 mL/min (>89); Glucose,Random 134 mg/dL (74-106); Lipase 333 U/L (73-393); Potassium 3.4 meq/L (3.5-5.1); Sodium 140 meq/L (136-145); Total Protein 8.7 g/dL (6.4-8.2)
[2018-07-05] MEDS ORDERED: Sod Chloride 0.9% Inj 1,000 ML IV.SIG ONE (00:58)
--- NOTE | 2018-07-05 02:14 | US ---
EXAM DATE: 07/05/2018 2:00 AM EDT AGE/SEX: 23 years / Male INDICATIONS: Upper abdominal pain, nausea and vomiting. CLINICAL DATA: This is the patient's subsequent encounter. Patient reports that signs and symptoms h ave been present for 4 - 6 days and indicates a pain score of 7/10. MEDICAL/SURGICAL HISTORY: . Bile duct stricture. Pancreatitis. Cholecystectomy. COMPARISON: [facility], CT ABDOMEN & PELVIS W/O CONTRAST, 02/01/2018. . MEASUREMENTS: Liver:__ 16.7 cm. Common Bile Duct:__ 7mm. Right Kidney:__ 12.0 x 5.7 x 4.3 cm. FINDINGS: Liver: Normal echotexture without focal lesion or ductal dilatation. Portal Vein: Hepatopedal flow seen in portal vein. Common Duct: No intraluminal mass or stone visualized. Gallbladder: Surgically absent. Pancreas: Within normal limits. Right Kidney: Normal echotexture and cortical thickness. No mass or hydronephrosis. Other: None. CONCLUSION: No abnormality is identified to explain the abdominal pain. Electronically signed by: Omero Guerrero MD 07/05/2018 2:12 AM EDT
[2018-07-05] MEDS ORDERED: Bisacodyl 10 MG Supp RECTAL PRN (04:34)
[2018-07-05] MEDS ORDERED: Morphine Inj 4 MG/ML Vial IV.PUSH ONE (04:41)
[2018-07-05] MEDS: Sod Chloride 0.9% Inj 1,000 ML IV.CONT SCH ×3 (07:54→20:47)
[2018-07-05] MEDS: Senna/Docusate Sodium 8.6/50 MG Tablet PO SCH ×2 (08:01→22:07)
[2018-07-05] MEDS ORDERED: Pantoprazole Inj 40 MG Vial IV.PUSH SCH (09:00)
[2018-07-05] MEDS: Sucralfate 1 GM Tablet PO SCH ×4 (11:07→20:49)
[2018-07-05] MEDS ORDERED: Succinylcholine Inj 100 MG/5 ML Syringe IV.PUSH ONE ×2 (12:00→12:11)
[2018-07-05] MEDS ORDERED: Lidocaine PF 1% Inj 5 ML Syringe INFILTRATN ONE (12:11)
--- NOTE | 2018-07-05 12:23 | P.CONGI ---
History of Present Illness Consult date: 07/05/18 Consult reason: Uncontrolled nausea vomiting, melena stools Chief complaint: Intractable Abdominal Pain, N/V History of Present Illness: This is a 23-year-old male who came in the hospital for evaluation on 07/04/2018 for nausea and vomiting uncontrolled for the past 2-3 days. Patient also notes some melena stools 2 days before his admission as well as some bright red hematemesis noted averaging about 2 teaspoons of blood. Patient states dyspepsia off and on for the past 2 years but has worsened over the past 5 days. Irrigating factors are spicy foods and eating late at night and relieving factors are omeprazole 20 mg daily as well as Carafate. Patient states EGD colonoscopy approximately 6 months ago but could not remember all the findings except some possible cauterizing. Patient denies any family history of colon cancer. Patient also has a history of ERCP approximately 6 months ago and history of pancreatitis and cholecystectomy. Pain scale for the past 3-5 days has been 10 out of 10; currently denies any fever or constipation. Patient does note for the past couple of days that stools have been looser and dark which is probably consistent with some GI bleeding. Labs show current hemoglobin 18.2, WBC count 16.5. <Magy Pérez - Last Filed: 07/05/18 12:14> Review of Systems All other systems reviewed negative except as stated in HPI <Magy Pérez - Last Filed: 07/05/18 12:14> PMFSH - History History Provided By: Patient - Medical History Medical History: Medical History (Last Updated 07/04/18 @ 23:39 by David Perez RN) Pancreatitis Bile duct abnormality - Surgical History Surgical History: Surgical History (Last Updated 07/03/18 @ 23:50 by Danielle Hester RN) History of cholecystectomy - Tobacco History Second Hand Smoke Exposure: Yes Tobacco Use In Past 30 Days: Yes Smoking Status: Current every day smoker Tobacco Type: Cigarettes - Alcohol History How Often Do You Have a Drink Containing Alcohol: Monthly or less - Substance Use History Substance History: No History of Abuse - Travel History Recent Travel in the [place] Within the Last 8 Weeks: No Recent Travel Out of the Country Within the Last 8 Weeks: No - Immunization History Tetanus Immunization: <5 Years Hx Influenza Vaccine This Season: No <Magy Pérez - Last Filed: 07/05/18 12:14> - Medical History Medical History: Medical History (Last Updated 07/04/18 @ 23:39 by David Perez RN) Pancreatitis Bile duct abnormality - Surgical History Surgical History: Surgical History (Last Updated 07/03/18 @ 23:50 by Danielle Hester RN) History of cholecystectomy <Leyda Levin - Last Filed: 07/05/18 12:39> Medications and Allergies Active Medications: Active Medications Al Hydroxide/Mg Hydroxide (Milk Of Magnesia Liq) 30 ml PO Q12H PRN PRN Reason: Mild Constipation Bisacodyl (Dulcolax Supp) 10 mg RECTAL DAILY PRN PRN Reason: SEVERE CONSITIPATION Sodium Chloride (Ns Inj) 1,000 mls @ 125 mls/hr IV.CONT .Q8H [facility] Last Admin: 07/05/18 07:54 Dose: 125 mls/hr Lactulose (Lactulose Liq) 30 ml PO DAILY PRN PRN Reason: SEVERE CONSITIPATION Ondansetron HCl (Zofran Inj) 4 mg IV.PUSH Q6H PRN PRN Reason: NAUSEA OR VOMITING Pantoprazole Sodium (Protonix Inj) 40 mg IV.PUSH Q24H [facility] Last Admin: 07/05/18 10:53 Dose: 40 mg Prochlorperazine Edisylate (Compazine Inj) 10 mg IV.PUSH Q6H PRN PRN Reason: N/V not responsive to zofran Last Admin: 07/05/18 06:08 Dose: 10 mg Senna/Docusate Sodium (Kelsea-Colace) 1 tab PO BID [facility] Last Admin: 07/05/18 08:01 Dose: Not Given Sennosides (Senokot) 17.2 mg PO Q12H PRN PRN Reason: Moderate Constipation Sodium Chloride (Ns Flush) 2 ml IV.FLUSH PRN PRN PRN Reason: FLUSH AFTER USING IV ACCESS Sucralfate (Carafate) 1 gm PO Q6H [facility] Last Admin: 07/05/18 11:07 Dose: Not Given <Magy Pérez - Last Filed: 07/05/18 12:14> Active Medications: Active Medications Al Hydroxide/Mg Hydroxide (Milk Of Magnesia Liq) 30 ml PO Q12H PRN PRN Reason: Mild Constipation Bisacodyl (Dulcolax Supp) 10 mg RECTAL DAILY PRN PRN Reason: SEVERE CONSITIPATION Sodium Chloride (Ns Inj) 1,000 mls @ 125 mls/hr IV.CONT .Q8H [facility] Last Admin: 07/05/18 07:54 Dose: 125 mls/hr Lactulose (Lactulose Liq) 30 ml PO DAILY PRN PRN Reason: SEVERE CONSITIPATION Ondansetron HCl (Zofran Inj) 4 mg IV.PUSH Q6H PRN PRN Reason: NAUSEA OR VOMITING Pantoprazole Sodium (Protonix Inj) 40 mg IV.PUSH Q24H [facility] Last Admin: 07/05/18 10:53 Dose: 40 mg Prochlorperazine Edisylate (Compazine Inj) 10 mg IV.PUSH Q6H PRN PRN Reason: N/V not responsive to zofran Last Admin: 07/05/18 06:08 Dose: 10 mg Senna/Docusate Sodium (Kelsea-Colace) 1 tab PO BID [facility] Last Admin: 07/05/18 08:01 Dose: Not Given Sennosides (Senokot) 17.2 mg PO Q12H PRN PRN Reason: Moderate Constipation Sodium Chloride (Ns Flush) 2 ml IV.FLUSH PRN PRN PRN Reason: FLUSH AFTER USING IV ACCESS Sucralfate (Carafate) 1 gm PO Q6H [facility] Last Admin: 07/05/18 11:07 Dose: Not Given <Leyda Levin A - Last Filed: 07/05/18 12:39> Allergies Allergy/AdvReac Type Severity Reaction Status Date / Time penicillin G Allergy Severe Hives Verified 07/04/18 00:41 Sulfa (Sulfonamide Allergy Unknown Hives Verified 07/04/18 00:41 Antibiotics) naproxen AdvReac Severe Nausea/Vomi Verified 07/04/18 00:41 ting Exam Vital signs: Vital Signs 07/04/18 22:28 07/04/18 23:39 07/05/18 01:03 Temperature 98.6 F Pulse Rate 58 L 59 L Respiratory Rate 20 18 16 Blood Pressure 180/105 H 173/91 H Pulse Oximetry 99 100 07/05/18 06:14 07/05/18 07:37 Temperature 98.5 F 98.1 F Pulse Rate 59 L 60 Respiratory Rate 22 14 Blood Pressure 172/92 H 133/75 Pulse Oximetry 100 98 Intake & Output 07/04/18 07/05/18 07/05/18 18:59 06:59 18:59 Intake Total 1999 Balance 1999 Weight 95.254 kg Intake: IV 1999 NS Inj 1,000 ML @ Wide Open IV. 1999 SIG BOLUS ONE Rx#:[id number] - Constitutional mild distress, cooperative - Routine HEENT Exam Head: Present: normocephalic, atraumatic ENT: Present: mucous membranes moist - Routine Neck Exam Present: supple - Routine Respiratory Exam Present: accessory muscle use (Even, unlabored) - Routine Cardiovascular Exam Present: S1, S2 - Routine Abdominal Exam Present: soft (Round, epigastric tenderness to light palpation, no other obvious abdominal pain) - Routine Neurological Exam Present: alert (Good historian answer simple questions) <Magy Pérez - Last Filed: 07/05/18 12:14> Vital signs: Vital Signs 07/04/18 22:28 07/04/18 23:39 07/05/18 01:03 Temperature 98.6 F Pulse Rate 58 L 59 L Respiratory Rate 20 18 16 Blood Pressure 180/105 H 173/91 H Pulse Oximetry 99 100 07/05/18 06:14 07/05/18 07:37 Temperature 98.5 F 98.1 F Pulse Rate 59 L 60 Respiratory Rate 22 14 Blood Pressure 172/92 H 133/75 Pulse Oximetry 100 98 Intake & Output 07/04/18 07/05/18 07/05/18 18:59 06:59 18:59 Intake Total 1999 Balance 1999 Weight 95.254 kg Intake: IV 1999 NS Inj 1,000 ML @ Wide Open IV. 1999 SIG BOLUS ONE Rx#:[id number] <Leyda Levin A - Last Filed: 07/05/18 12:39> Results - Labs CBC & Chem 7: 07/04/18 23:59 07/04/18 23:59 Labs: Laboratory Results - last 24 hr 07/04/18 07/04/18 23:59 23:59 WBC 16.5 H RBC 6.09 H Hgb 18.2 H Hct 52.4 H MCV 86.0 MCH 30.0 MCHC 34.8 RDW 13.2 Plt Count 237 MPV 9.3 Neut % (Auto) 81.6 H Lymph % (Auto) 14.2 Kershaw % (Auto) 3.8 Eos % (Auto) 0.2 Baso % (Auto) 0.2 Neut # (Auto) 13.5 H Lymph # (Auto) 2.3 Kershaw # (Auto) 0.6 Eos # (Auto) 0.0 Baso # (Auto) 0.0 WBC Differential . Differential Comment Auto diff final Sodium 140 Potassium 3.4 L D Chloride 101 Carbon Dioxide 29.6 Anion Gap 9 BUN 12 Creatinine 1.40 H Estimated GFR 62 L Random Glucose 134 H Calcium 9.1 Total Bilirubin 1.6 H AST 18 ALT 42 Alkaline Phosphatase 79 Total Protein 8.7 H Albumin 4.7 Lipase 333 - Imaging Impressions Liver Ultrasound 07/05/18 00:57 CONCLUSION: No abnormality is identified to explain the abdominal pain. <Magy Pérez - Last Filed: 07/05/18 12:14> - Labs CBC & Chem 7: 07/04/18 23:59 07/04/18 23:59 Labs: Laboratory Results - last 24 hr 07/04/18 07/04/18 23:59 23:59 WBC 16.5 H RBC 6.09 H Hgb 18.2 H Hct 52.4 H MCV 86.0 MCH 30.0 MCHC 34.8 RDW 13.2 Plt Count 237 MPV 9.3 Neut % (Auto) 81.6 H Lymph % (Auto) 14.2 Kershaw % (Auto) 3.8 Eos % (Auto) 0.2 Baso % (Auto) 0.2 Neut # (Auto) 13.5 H Lymph # (Auto) 2.3 Kershaw # (Auto) 0.6 Eos # (Auto) 0.0 Baso # (Auto) 0.0 WBC Differential . Differential Comment Auto diff final Sodium 140 Potassium 3.4 L D Chloride 101 Carbon Dioxide 29.6 Anion Gap 9 BUN 12 Creatinine 1.40 H Estimated GFR 62 L Random Glucose 134 H Calcium 9.1 Total Bilirubin 1.6 H AST 18 ALT 42 Alkaline Phosphatase 79 Total Protein 8.7 H Albumin 4.7 Lipase 333 - Imaging Impressions Liver Ultrasound 07/05/18 00:57 CONCLUSION: No abnormality is identified to explain the abdominal pain. <Leyda Levin - Last Filed: 07/05/18 12:39> Assessment and Plan (1) GI bleed Status: Acute Code(s): K92.2 - Gastrointestinal hemorrhage, unspecified (2) Intractable abdominal pain Status: Acute Code(s): R10.9 - Unspecified abdominal pain (3) Intractable nausea and vomiting Status: Acute Code(s): R11.2 - Nausea with vomiting, unspecified - Plan nausea and vomiting uncontrolled for the past 2-3 days. melena stools 2 days before his admission bright red hematemesis noted averaging about 2 teaspoons of blood. dyspepsia off and on for the past 2 years but has worsened over the past 5 days. Aggravating factors are spicy foods and eating late at night and relieving factors are omeprazole 20 mg daily as well as Carafate. Patient states EGD colonoscopy approximately 6 months ago but could not remember all the findings except some possible cauterizing. Patient denies any family history of colon cancer. Patient also has a history of ERCP approximately 6 months ago and history of pancreatitis and cholecystectomy. Pain scale for the past 3-5 days has been 10 out of 10; currently denies any fever or constipation. Patient does note for the past couple of days that stools have been looser and dark which is probably consistent with some GI bleeding. Labs show current hemoglobin 18.2, WBC count 16.5. Ultrasound of the liver unremarkable, leukocytosis unspecified Plan Diet n.p.o. for now Consent for EGD today Monitor labs PPI Zofran Further recommendations to follow Patient was seen per myself and Dr. Levin, note was written on his behalf <Magy Pérez - Last Filed: 07/05/18 12:14> (1) GI bleed Status: Acute Code(s): K92.2 - Gastrointestinal hemorrhage, unspecified (2) Intractable abdominal pain Status: Acute Code(s): R10.9 - Unspecified abdominal pain (3) Intractable nausea and vomiting Status: Acute Code(s): R11.2 - Nausea with vomiting, unspecified - Attending Attestation Patient seen and examined, plan as above, will proceed with EGD, consent obtained after explaining risk, benefits and complications to the patient and family. Thank you for the consult. <Leyda Levin - Last Filed: 07/05/18 12:39> <Magy Pérez M - Last Filed: 07/05/18 12:14> (3) Intractable nausea and vomiting Qualifiers: Vomiting type: unspecified Qualified Code(s): R11.2 - Nausea with vomiting, unspecified <Leyda Levin A - Last Filed: 07/05/18 12:39> (3) Intractable nausea and vomiting Qualifiers: Vomiting type: unspecified Qualified Code(s): R11.2 - Nausea with vomiting, unspecified
--- NOTE | 2018-07-05 12:26 | GIPROC ---
[facility] [address] [facility]. [facility], [id number] EGD PROCEDURE REPORT EXAM DATE: 07/05/2018 PATIENT NAME: Tyrone Roach MR #: [id number] BIRTHDATE: 1995 ATTENDING: Leyda Levin MD ORDER #: [id number] ELEPHANT KEEPER: Marisel Yan and Cortney Iraheta STATUS: inpatient INDICATIONS: The patient is a 23 yr old male here for an EGD due to hematemesis PROCEDURE PERFORMED: EGD w/ biopsy MEDICATIONS: None and Per Anesthesia. TOPICAL ANESTHETIC: none CONSENT: The patient understands the risks and benefits of the procedure and understands that these risks include, but are not limited to: sedation, allergic reaction, infection, perforation and/or bleeding. Alternative means of evaluation and treatment include, among others: physical exam, x-rays, and/or surgical intervention. The patient elects to proceed with this endoscopic procedure. medical equipment was checked for proper function. Hand hygiene and appropriate measures for infection prevention was taken. After the risks, benefits and alternatives of the procedure were thoroughly explained, Informed consent was verified, confirmed and timeout was successfully executed by the treatment team. The patient was anesthetized with topical anesthesia and the [employer] [id number] endoscope was introduced through the mouth and advanced to the second portion of the duodenum. Retroflexed views revealed a Lauryn-Gloria tear The gastroscope was then slowly withdrawn and removed. ESOPHAGUS: There was LA Class B esophagitis noted. Multiple biopsies were performed using cold forceps. Sample sent for histology. STOMACH: The mucosa of the stomach appeared normal. DUODENUM: The duodenal mucosa appeared normal in the duodenal bulb, 2nd part duodenum, and 3rd part duodenum. ADVERSE EVENTS: There were no complications. IMPRESSIONS: 1. There was LA Class B esophagitis noted; multiple biopsies were performed 2. The mucosa of the stomach appeared normal 3. Normal duodenal mucosa in the duodenal bulb, 2nd part duodenum, and 3rd part duodenum 4. Retroflexed views revealed a Lauryn-Gloria tear RECOMMENDATIONS: 1. No treatment 2. Await biopsy results. Biopsy results will not be ready for 7-10 days. If you don't hear from us in two weeks, call our office for biopsy results. PATIENT CONDITION: stable DISPOSITION: Observation REPEAT EXAM: NONE Leyda Levin MD eSigned: Leyda Levin MD 07/05/2018 12:26 PM cc: PATIENT NAME: Tyrone Roach MR#: [id number]
[2018-07-05 16:18] VITALS: O2SAT 97
--- NOTE | 2018-07-05 17:06 | P.HP ---
History of Present Illness Primary Care Physician: No Primary Care Physician Chief Complaint: intractable nausea and vomiting. History of Present Illness: This is a 23-year-old white male with significant past medical history of cholecystectomy, pancreatitis. He was actually admitted 5 days ago for abdominal pain, nausea vomiting. At that time he was found with mild leukocytosis, dehydration and elevated bilirubin likely representing dehydration. He was discharged with pantoprazole and carafate. Patient does have a history of marijuana use and he was counseled to stop smoking as this may have been causing marijuana induced hyperemesis. Patient states when he went home, he continued to feel poorly and has had several episodes of nausea and vomiting, he cannot keep any food down and has only been able to some liquids. Complains of epigastric discomfort that is crampy. Had one loose stool yesterday, nonbloody. Indicates that emesis is nonbloody. Denies any alcohol use, continues to smoke marijuana 2 times a week. Denies any fever, no chills. Has some shortness of breath every time he vomits, no chest pain. Patient was evaluated in the emergency room, he was initially with elevated blood pressure of 180/105 which is coming down. CBC remarkable for hemoconcentration, hemoglobin 18.2, hematocrit 52.4. WBC was 16.5. BMP remarkable for creatinine of 1.40. Total bilirubin was 1.6. Lipase 333. Patient was given IV fluids and antiemetics. He also received morphine 4 mg IV x1. Indicates he followed up with GI several months ago. Patient is admitted for further evaluation and treatment - Diagnosis (1) Intractable nausea and vomiting (2) Elevated blood pressure reading (3) Leukocytosis (4) Dehydration (5) History of cholecystectomy Review of Systems All other systems reviewed negative except as stated [facility] - History History Provided By: Patient - Medical History Medical History: Medical History (Last Reviewed 07/05/18 @ 17:05 by SANDIP Lepe) Marihuana dependence Pancreatitis Bile duct abnormality - Surgical History Surgical History: Surgical History (Last Reviewed 07/05/18 @ 17:05 by SANDIP Lepe) History of cholecystectomy (Chronic) - Family History Family History: Family History (Last Updated 07/05/18 @ 17:05 by SANDIP Lepe) Other Family history non-contributory - Tobacco History Second Hand Smoke Exposure: Yes Tobacco Use In Past 30 Days: Yes Smoking Status: Current every day smoker Tobacco Type: Cigarettes - Alcohol History How Often Do You Have a Drink Containing Alcohol: Monthly or less - Substance Use History Substance History: No History of Abuse, Active Abuse (SMOKES MARIJUANA 2X A WEEK ) - Travel History Recent Travel in the [place] Within the Last 8 Weeks: No Recent Travel Out of the Country Within the Last 8 Weeks: No - Immunization History Tetanus Immunization: <5 Years Hx Influenza Vaccine This Season: No Medications and Allergies Active Medications: Active Medications Hydrocodone Bitart/Acetaminophen ([place] 7.5/325) 1 tab PO Q6H PRN PRN Reason: PAIN SCALE 6 TO 10 Al Hydroxide/Mg Hydroxide (Milk Of Magnesia Liq) 30 ml PO Q12H PRN PRN Reason: Mild Constipation Bisacodyl (Dulcolax Supp) 10 mg RECTAL DAILY PRN PRN Reason: SEVERE CONSITIPATION Sodium Chloride (Ns Inj) 1,000 mls @ 125 mls/hr IV.CONT .Q8H [facility] Last Admin: 07/05/18 13:54 Dose: Not Given Lactulose (Lactulose Liq) 30 ml PO DAILY PRN PRN Reason: SEVERE CONSITIPATION Miscellaneous Information (Misc Nursing Information) 1 each OTHER UNSCH PRN PRN Reason: SEE LABEL COMMENTS Stop: 07/06/18 12:29 Ondansetron HCl (Zofran Inj) 4 mg IV.PUSH Q6H PRN PRN Reason: NAUSEA OR VOMITING Pantoprazole Sodium (Protonix Inj) 40 mg IV.PUSH Q24H [facility] Last Admin: 07/05/18 10:53 Dose: 40 mg Prochlorperazine Edisylate (Compazine Inj) 10 mg IV.PUSH Q6H PRN PRN Reason: N/V not responsive to zofran Last Admin: 07/05/18 06:08 Dose: 10 mg Senna/Docusate Sodium (Kelsea-Colace) 1 tab PO BID [facility] Last Admin: 07/05/18 08:01 Dose: Not Given Sennosides (Senokot) 17.2 mg PO Q12H PRN PRN Reason: Moderate Constipation Sodium Chloride (Ns Flush) 2 ml IV.FLUSH PRN PRN PRN Reason: FLUSH AFTER USING IV ACCESS Sucralfate (Carafate) 1 gm PO Q6H [facility] Last Admin: 07/05/18 14:34 Dose: Not Given Allergies Allergy/AdvReac Type Severity Reaction Status Date / Time penicillin G Allergy Severe Hives Verified 07/04/18 00:41 Sulfa (Sulfonamide Allergy Unknown Hives Verified 07/04/18 00:41 Antibiotics) naproxen AdvReac Severe Nausea/Vomi Verified 07/04/18 00:41 ting Exam Vital signs: Vital Signs 07/04/18 22:28 07/04/18 23:39 07/05/18 01:03 Temperature 98.6 F Pulse Rate 58 L 59 L Respiratory Rate 20 18 16 Blood Pressure 180/105 H 173/91 H Pulse Oximetry 99 100 07/05/18 06:14 07/05/18 07:37 07/05/18 12:35 Temperature 98.5 F 98.1 F 98.6 F Pulse Rate 59 L 60 96 H Respiratory Rate 22 14 12 Blood Pressure 172/92 H 133/75 132/75 Pulse Oximetry 100 98 99 07/05/18 12:45 07/05/18 13:00 07/05/18 16:00 Temperature 98.6 F 97.7 F Pulse Rate 76 76 64 Respiratory Rate 12 14 12 Blood Pressure 128/74 128/70 140/75 Pulse Oximetry 98 98 97 Intake & Output 07/04/18 07/05/18 07/05/18 18:59 06:59 18:59 Intake Total 1999 500 / 500 Balance 1999 500 / 500 Weight 95.254 kg Intake: IV 1999 NS Inj 1,000 ML @ Wide Open IV. 1999 SIG BOLUS ONE Rx#:[id number] Anesthesia Amount 500 / 500 Narrative: GENERAL: Well-nourished, well-developed patient in no apparent distress. SKIN: Warm and dry. HEAD: Atraumatic. Normocephalic. EYES: Pupils equal and round. No scleral icterus. No injection or drainage. ENT: No nasal bleeding or discharge. Mucous membranes pink and moist. NECK: Trachea midline. No JVD. CARDIOVASCULAR: Regular rate and rhythm. RESPIRATORY: No accessory muscle use. Clear to auscultation. Breath sounds equal bilaterally. GASTROINTESTINAL: Abdomen soft, mild epigastric tenderness, nondistended. Hepatic and splenic margins not palpable. MUSCULOSKELETAL: Extremities without clubbing, cyanosis, or edema. No obvious deformities. NEUROLOGICAL: Awake and alert. No obvious cranial nerve deficits. Motor grossly within normal limits. Five out of 5 muscle strength in the arms and legs. Normal speech. PSYCHIATRIC: Appropriate mood and affect; insight and judgment normal. Results - Labs CBC & Chem 7: 07/04/18 23:59 07/04/18 23:59 Labs: Laboratory Results - last 24 hr 07/04/18 07/04/18 23:59 23:59 WBC 16.5 H RBC 6.09 H Hgb 18.2 H Hct 52.4 H MCV 86.0 MCH 30.0 MCHC 34.8 RDW 13.2 Plt Count 237 MPV 9.3 Neut % (Auto) 81.6 H Lymph % (Auto) 14.2 [place] % (Auto) 3.8 Eos % (Auto) 0.2 Baso % (Auto) 0.2 Neut # (Auto) 13.5 H Lymph # (Auto) 2.3 [place] # (Auto) 0.6 Eos # (Auto) 0.0 Baso # (Auto) 0.0 WBC Differential . Differential Comment Auto diff final Sodium 140 Potassium 3.4 L D Chloride 101 Carbon Dioxide 29.6 Anion Gap 9 BUN 12 Creatinine 1.40 H Estimated GFR 62 L Random Glucose 134 H Calcium 9.1 Total Bilirubin 1.6 H AST 18 ALT 42 Alkaline Phosphatase 79 Total Protein 8.7 H Albumin 4.7 Lipase 333 - Imaging Impressions Liver Ultrasound 07/05/18 00:57 CONCLUSION: No abnormality is identified to explain the abdominal pain. Caprini VTE Risk Assessment Caprini VTE Risk Assessment: No/Low Risk (score <= 1) Caprini Risk Assessment Model: Point Value = 1 Point Value = 2 Point Value = 3 Point Value = 5 Age 41-60 Minor surgery BMI > 25 kg/m2 Swollen legs Varicose veins or History of unexplained or recurrent spontaneous Oral contraceptives or hormone replacement Sepsis (< 1 month) Serious lung disease, including pneumonia (< 1 month) Abnormal pulmonary function Acute myocardial infarction Congestive heart failure (< 1 month) History of inflammatory bowel disease Medical patient at bed rest Age 61-74 Arthroscopic surgery Major open surgery (> 45 min) Laparoscopic surgery (> 45 min) Malignancy Confined to bed (> 72 hours) Immobilizing plaster cast Central venous access Age >= 75 History of VTE Family history of VTE Factor V Leiden Prothrombin [id number] Lupus anticoagulant Anticardiolipin antibodies Elevated serum homocysteine Heparin-induced thrombocytopenia Other congenital or acquired thrombophilia Stroke (< 1 month) Elective arthroplasty Hip, pelvis, or leg fracture Acute spinal cord injury (< 1 month) Prophylaxis Regimen: Total Risk Factor Score Risk Level Prophylaxis Regimen 0-1 Low Early ambulation 2 Moderate Order ONE of the following: *Sequential Compression Device (SCD) *Heparin 5000 units SQ BID 3-4 Higher Order ONE of the following medications: *Heparin 5000 units SQ TID *Enoxaparin/Lovenox 40 mg SQ daily (WT < 150 kg, CrCl > 30 mL/min) *Enoxaparin/Lovenox 30 mg SQ daily (WT < 150 kg, CrCl > 10-29 mL/min) *Enoxaparin/Lovenox 30 mg SQ BID (WT < 150 kg, CrCl > 30 mL/min) AND/OR *Sequential Compression Device (SCD) 5 or more Highest Order ONE of the following medications: *Heparin 5000 units SQ TID (Preferred with Epidurals) *Enoxaparin/Lovenox 40 mg SQ daily (WT < 150 kg, CrCl > 30 mL/min) *Enoxaparin/Lovenox 30 mg SQ daily (WT < 150 kg, CrCl > 10-29 mL/min) *Enoxaparin/Lovenox 30 mg SQ BID (WT < 150 kg, CrCl > 30 mL/min) AND *Sequential Compression Device (SCD) Assessment and Plan - Assessment (1) Intractable nausea and vomiting Code(s): R11.2 - Nausea with vomiting, unspecified Status: Acute (2) Elevated blood pressure reading Code(s): R03.0 - Elevated blood-pressure reading, without diagnosis of hypertension Status: Acute (3) Leukocytosis Code(s): D72.829 - Elevated white blood cell count, unspecified Status: Acute (4) Dehydration Code(s): E86.0 - Dehydration Status: Acute (5) History of cholecystectomy Code(s): Z90.49 - Acquired absence of other specified parts of digestive tract Status: Chronic - Plan Assessment/Plan 23-year-old white male with history of pancreatitis and prior cholecystectomy. Presents to the emergency room with recurrent nausea vomiting and epigastric pain. He was recently admitted for same and discharge on PPI and Carafate. Complains of a loose stool, has not been able to eat. No fever, no chills. Intractable nausea vomiting with epigastric discomfort. Patient endorses history of nausea vomiting here. Patient with history of marijuana use, possible marijuana hyperemesis induced Dehydration -Keep NPO -continue with IVF -Protonix 40 mg IV daily -Consult GI, d/w VP INFORMATICS. May need EGD -Replace electrolytes as needed -Antiemetics as needed -Resume Carafate when able to take PO Leukocytosis, likely reactive -Follow CBC in am -monitor for fever Marijuana use -has been counselled to stop smoking as this may be causing N/V. Pt. ambulatory, no need for SCDs Repeat labs in am If symptoms improve and tolerating p.o. well, possible discharge in the morning. (1) Intractable nausea and vomiting Qualifiers: Vomiting type: unspecified Qualified Code(s): R11.2 - Nausea with vomiting, unspecified
[2018-07-05 20:55] VITALS: BP 145/67; PULSE 54; RESP 19; TEMP 98.3
== END 2018-07-06 02:09 | disposition left against medical advice (07) ==
LOC: NEDA 21:32 → NEPE 21:32 → NEPFCDU 07-05 06:12
PROVIDERS: ADMIT Hospitalist; ATTEND Hospitalist
PROC: PANENDO (2018-07-05 12:00)